=== PATIENT | male | born 1985 | race American Indian/Alaskan Native ===

== ENCOUNTER 2017-03-09 22:41 | Inpatient (IN) | payer BC ==
[2017-03-09 22:48] VITALS: BMI 27.1
[2017-03-09] MEDS ORDERED: Sodium Chloride 0.9% 1,000 ML IV STA (23:06)
--- NOTE | 2017-03-09 23:10 | ED PDOC ---
Arrival/HPI - General Historian: Patient EM Caveat: Uncooperative - General Chief Complaint: Dizziness/Lightheaded Time Seen by Provider: 03/09/17 22:50 - History of Present Illness Narrative History of Present Illness (Text): 03/09/17 23:07 31 y/o male, limited HPI can be obtained as the patient is anxious and walking around which he can not sit still, biba c/o feeling anxious and feeling something wrong with me x 1 day. Pt. was see in the [facility] less than 24 hours ago for palpitation and abdominal pain with the abdominal/pelvic CT with no acute findings, clear to be discharged home. Pt. stated that he feels anxious, can not stay still, concerning there is something going wrong with him , been drinking Golytely for colonoscopy and feeling he is dehydrated, very concerning about his health, feeling he is dehydrated and been drinking water continuously, no chest pain or shortness of breath, no abdominal or pelvic pain , no night sweat, no dizziness, no other medical or psychological complaints. (Serjio Miller) Past Medical History - Provider Review Nursing Documentation Reviewed: Yes - Past History Past History: No Previous - Infectious Disease Hx of Infectious Diseases: None - Tetanus Immunization Tetanus Immunization: Unknown - Pulmonary Hx Asthma: Yes - Endocrine/Metabolic Hx Endocrine Disorders: No - Integumentary Hx Dermatological Disorder: No - Gastrointestinal Hx Gastroesophageal Reflux: Yes - Psychiatric Hx Depression: No Hx Substance Use: No - Past Surgical History Past Surgical History: No Previous - Anesthesia Hx Anesthesia: No - Suicidal Assessment Feels Threatened In Home Enviroment: No Family/Social History - Physician Review Nursing Documentation Reviewed: Yes Family/Social History: Unknown Family HX Smoking Status: Never Smoked Hx Alcohol Use: Yes Hx Substance Use: No Hx Substance Use Treatment: No Allergies/Home Meds Allergies/Adverse Reactions: Allergies No Known Allergies Allergy (Verified 03/08/17 09:33) Home Medications: Home Meds Medication Instructions Recorded Confirmed Omeprazole 20 mg PO DAILY 03/08/17 03/08/17 Review of Systems - Review of Systems Systems not reviewed;Unavailable: Uncooperative Constitutional: absent: Fatigue, Fevers Eyes: absent: Vision Changes ENT: absent: Hearing Changes Respiratory: absent: Cough, Sputum Cardiovascular: absent: Chest Pain Gastrointestinal: absent: Abdominal Pain, Nausea, Vomiting Skin: absent: Rash, Pruritis, Skin Lesions, Laceration Neurological: absent: Headache, Dizziness Psychiatric: Anxiety. absent: Depression, Suicidal Ideation Physical Exam Vital Signs Reviewed: Yes Temperature: Afebrile Blood Pressure: Normal Pulse: Regular Respiratory Rate: Normal Appearance: Positive for: Well-Appearing, Non-Toxic, Unkept, Uncomfortable Pain Distress: None Mental Status: Positive for: Agitated Finger Stick Blood Glucose: 130 - Systems Exam Head: Present: Atraumatic, Normocephalic Pupils: Present: PERRL Extroacular Muscles: Present: EOMI Conjunctiva: Present: Normal Mouth: Present: Moist Mucous Membranes Neck: Present: Normal Range of Motion Respiratory/Chest: Present: Clear to Auscultation, Good Air Exchange. No: Respiratory Distress, Accessory Muscle Use Cardiovascular: Present: Regular Rate and Rhythm, Normal S1, S2. No: Murmurs Abdomen: Present: Normal Bowel Sounds. No: Tenderness, Distention, Peritoneal Signs Back: Present: Normal Inspection Upper Extremity: Present: Normal Inspection. No: Cyanosis, Edema Lower Extremity: Present: Normal Inspection. No: Edema Neurological: Present: GCS=15, Speech Normal, Motor Func Grossly Intact Skin: Present: Warm, Dry, Normal Color. No: Rashes Psychiatric: Present: Alert, Anxious Vital Signs Temp Pulse Resp BP Pulse Ox 03/10/17 02:50 64 18 128/68 100 03/10/17 02:00 63 18 135/75 100 03/10/17 00:31 97.9 F 84 18 140/82 100 Medical Decision Making - Critical Care Critical Care Minutes: 30 minutes Critical Care Time: Unstable - Lab Interpretations I have reviewed the lab results: Yes Interpretation: Abnormal lab values (Ph 7.136 with CO2 34 and LA 9.4 HCO3 12.1 ( Metabolic Acidosis with respiratory compensation), hyponatremia, hypomagensemia , hypochloremia) - RAD Interpretation Drop Wire Aligner: Radiologist - EKG Interpretation Interpreted by ED Physician: Yes Type: 12 lead EKG ED Course and Treatment: 03/10/17 02:48 CT Head Without Intravenous Contrast: Dictated and Authenticated by: Dolores Hollingsworth MD FINDINGS: Brain: No acute intracranial hemorrhage. No significant white matter disease. No edema. Ventricles: No significant ventriculomegaly. Bones: No acute displaced fracture. Sinuses: Unremarkable as visualized. No acute sinusitis. Mastoid air cells: Unremarkable as visualized. No mastoid effusion. IMPRESSION: No acute intracranial hemorrhage, or suspicious mass effect. (Peter Cody) 03/09/17 23:16 -labs/ua/uds -ekg/chest x-ray -Ativan 2mg IV -Observe and reassess 03/10/17 00:29 -Pt. has vomited water he has been drinking in the ER, noted that he had seizure in the ER with tonic clonic activity for approx. 1 minute, osmolarity/ oxygen/train operations manager/CT head ordered/aspiration and seizure precautions order. 03/10/17 00:44 -EKG: NSR @ 71 BPM, no ST elevation or depression, no T wave inversion. 03/10/17 01:03 -ABS show: Ph 7.136 with CO2 34 and LA 9.4 HCO3 12.1 (Metabolic Acidosis with respiratory compensation) -Hypertonic 3% normal saline at 100cc bolus once ordered after discussing with DR. Cody -Potassium Chloride IV 20meq ordered. -Pt. vomited in the ER and been coughing in the ER, risk for aspiration pneumonia with lactic acid 9.4 but no suitable for the IVF bolus due to the Na level, rocephine and azithromycin IV ordered. -Chest x-ray show no acute findings. 03/10/17 01:06 -CT head show: no acute findings. -Labs show hyponatremia and hypokalemia/hypomagnseumia which is likely the source for new onset of seizure -Urinalysis pending for specieman -Drug screen pending 03/10/17 02:47 -Dr. Cody spoke to Dr. Mcfarlane (ICU) and Dr. Anderson (admitting), discussed about the labs/radiology result as they will follow up the remaining labs and care for the patient, agreed on the admission. (Serjio Miller) - Critical Care Narrative Critical Care (Text): 03/10/17 02:54 hyponatremia/hypokalemia/acidosis/hypertonic IVF/rocephine and azithromycin IV/ train operations manager/seizure. (Serjio Miller) - Lab Interpretations Lab Results: 03/10/17 00:30 03/10/17 00:30 Lab Results 03/10/17 00:35: pCO2 34 L, pO2 85.0, HCO3 12.1 L, ABG pH 7.16 L*, ABG Total CO2 13.1 L, ABG O2 Saturation 97.1, ABG Base Excess -15.6 L, ABG Potassium 2.4 L*, Glucose 125 H, Lactate 9.4 H*, FiO2 100.0, Sodium 122.0 L, Chloride 87.0 L, Arterial Blood Potassium 2.4 L* 03/10/17 00:30: Salicylates < 1 L, Acetaminophen < 10.0 L 03/10/17 00:30: Serum Osmolality 250 L, Alcohol, Quantitative < 10 03/10/17 00:30: Sodium 118 L*, Potassium 3.0 L, Chloride 80 L, Carbon Dioxide 17 L, Anion Gap 24 H, BUN 4 L, Creatinine 0.7, Est GFR ( Amer) > 60, Est GFR (Non-Af Amer) > 60, Random Glucose 151 H, Calcium 8.8, Magnesium 1.1 L, Total Bilirubin 2.2 H, AST 29, ALT 17, Alkaline Phosphatase 75, Total Protein 8.4 H, Albumin 4.8, Globulin 3.6, Albumin/Globulin Ratio 1.3, Lipase 44 03/10/17 00:30: WBC 6.1, RBC 4.90, Hgb 14.6, Hct 41.4 L, MCV 84.5, MCH 29.8, MCHC 35.3, RDW 12.3, Plt Count 268, MPV 8.6, Gran % 70.1 H, Lymph % (Auto) 18.4 L, Dillon % (Auto) 10.9 H, Eos % (Auto) 0.3 L, Baso % (Auto) 0.3, Gran # 4.26, Lymph # 1.1 L, Dillon # 0.7 H, Eos # 0.0, Baso # 0.02 - RAD Interpretation Radiology Orders: 03/09/17 23:06 CHEST PORTABLE [RAD] Stat 03/10/17 00:27 HEAD W/O CONTRAST [CT] Stat FINDINGS: Brain: No acute intracranial hemorrhage. No significant white matter disease. No edema. Ventricles: No significant ventriculomegaly. Bones: No acute displaced fracture. Sinuses: Unremarkable as visualized. No acute sinusitis. Mastoid air cells: Unremarkable as visualized. No mastoid effusion. IMPRESSION: No acute intracranial hemorrhage, or suspicious mass effect. Thank you for allowing us to participate in the care of your patient. Dictated and Authenticated by: Dolores Hollingsworth MD 03/10/2017 1:57 AM Eastern Time ([place] & [place]) Chest x-ray: no active disease (Serjio Miller) - EKG Interpretation EKG Interpretation (Text): 03/10/17 00:44 NSR @ 71 BPM, no ST elevation or depression, no T wave inversion. (Serjio Miller) - Medication Orders Current Medication Orders: Enoxaparin Sodium (Lovenox) 40 mg SC DAILY PEPE PRN Reason: Protocol Last Admin: 03/10/17 15:20 Dose: 40 mg Dexmedetomidine HCl (Precedex 4 Mcg/Ml (100 Ml)) 400 mcg in 100 mls @ 4.536 mls /hr IV .Q22H3M PRN; Protocol; 0.2 MCG/KG/HR PRN Reason: Agitation Last Admin: 03/10/17 15:15 Dose: 0.2 mcg/kg/hr, 4.536 mls/hr Lorazepam (Ativan) 2 mg IVP Q4H PRN; Protocol PRN Reason: Seizure activity Last Admin: 03/10/17 04:55 Dose: 2 mg Re-Assess: Reassess Psych Meds Document 03/10/17 05:25 [facility] (Rec: 03/10/17 06:01 [id number] Reassess Psych Med Effective Morphine Sulfate (Morphine) 2 mg IVP Q4H PRN PRN Reason: Pain, severe (8-10) Ondansetron HCl (Zofran Inj) 4 mg IVP Q6H PRN PRN Reason: Nausea/Vomiting Pantoprazole Sodium (Protonix Inj) 40 mg IVP DAILY [facility] Last Admin: 03/10/17 15:20 Dose: 40 mg Discontinued Medications Ceftriaxone Sodium (Rocephin 1 Gram Ivpb) 1 gm in 100 mls @ 200 mls/hr IVPB STAT STA PRN Reason: Protocol Stop: 03/10/17 01:26 Last Admin: 03/10/17 02:56 Dose: 200 mls/hr Azithromycin (Zithromax 500mg In Ns) 500 mg in 250 mls @ 167 mls/hr IVPB STAT STA PRN Reason: Protocol Stop: 03/10/17 02:26 Last Admin: 03/10/17 03:59 Dose: 167 mls/hr Sodium Chloride (Hypertonic Saline 3%) 100 mls @ 200 mls/hr IV STAT STA Stop: 03/10/17 01:31 Last Admin: 03/10/17 01:26 Dose: 200 mls/hr Potassium Chloride (Potassium Chloride 20 Meq/100 Ml) 20 meq in 100 mls @ 50 mls/hr IVPB ONCE ONE Stop: 03/10/17 03:01 Last Admin: 03/10/17 04:00 Dose: 50 mls/hr Magnesium Sulfate 2 gm/ Sodium (Chloride) 104 mls @ 102 mls/hr IVPB ONCE ONE Stop: 03/10/17 04:00 Last Admin: 03/10/17 03:41 Dose: 102 mls/hr Vancomycin HCl (Vancomycin 1gm) 1 gm in 250 mls @ 167 mls/hr IVPB Q12H PEPE PRN Reason: Protocol Piperacillin Sod/Tazobactam Sod (Zosyn 3.375 In Ns 100ml) 100 mls @ 200 mls/hr IVPB Q6 PEPE PRN Reason: Protocol Stop: 03/10/17 12:29 Vancomycin HCl (Vancomycin 1gm) 1 gm in 250 mls @ 167 mls/hr IVPB STAT STA PRN Reason: Protocol Stop: 03/10/17 04:40 Last Admin: 03/10/17 04:58 Dose: 167 mls/hr Piperacillin Sod/Tazobactam Sod (Zosyn 3.375 In Ns 100ml) 100 mls @ 200 mls/hr IVPB STAT STA PRN Reason: Protocol Stop: 03/10/17 03:39 Sodium Chloride (Sodium Chloride 0.9%) 1,000 mls @ 125 mls/hr IV .Q8H PEPE Last Admin: 03/10/17 05:14 Dose: 125 mls/hr Potassium Chloride (Potassium Chloride 10 Meq/100 Ml) 10 meq in 100 mls @ 100 mls/hr IVPB Q2H PEPE Stop: 03/10/17 10:59 Last Admin: 03/10/17 15:22 Dose: Lorazepam (Ativan) 2 mg IM ONCE ONE PRN Reason: Protocol Stop: 03/09/17 23:15 Last Admin: 03/09/17 23:17 Dose: 2 mg Lorazepam (Ativan) 2 mg IVP ONCE PRN; Protocol PRN Reason: Seizure activity Last Admin: 03/10/17 01:55 Dose: 2 mg Metoprolol Tartrate (Lopressor) 5 mg IVP STAT STA Stop: 03/10/17 11:24 Last Admin: 03/10/17 15:22 Dose: Metoprolol Tartrate (Lopressor) Confirm Administered Dose 5 mg IVP .STK-MED ONE Stop: 03/10/17 11:26 Last Admin: 03/10/17 11:30 Dose: 5 mg Ondansetron HCl (Zofran Inj) Confirm Administered Dose 4 mg .ROUTE .STK-MED ONE Stop: 03/10/17 02:49 Last Admin: 03/10/17 02:56 Dose: 4 mg - PA / 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 / has examined the patient and agrees with the treatment plan. Disposition/Present on Arrival - Present on Arrival Any Indicators Present on Arrival: No History of DVT/PE: No History of Uncontrolled Diabetes: No Urinary Catheter: No History of Decub. Ulcer: No History Surgical Site Infection Following: None - Disposition Have Diagnosis and Disposition been Completed?: Yes Disposition Time: 23:18 Patient Plan: Admission, ICU - Disposition Diagnosis: New onset seizure, Acute hyponatremia, Acute hyperkalemia, Hypomagnesemia, Metabolic acidemia Disposition: HOSPITALIZED Patient Problems: Current Active Problems Problem Status Onset Acute hyperkalemia Acute Acute hyponatremia Acute Hypomagnesemia Acute New onset seizure Acute Condition: GUARDED
[2017-03-10 00:52] LABS: ARTERIAL BLOOD GAS HCO3 12.1 mmol/L (21-28); ARTERIAL BLOOD GAS O2 SAT 97.1 % (95-98); ARTERIAL BLOOD GAS PCO2 34 mm/Hg (35-45); ARTERIAL BLOOD GAS TCO2 13.1 mmol.L (22-28)
[2017-03-10 00:53] LABS: ARTERIAL BLOOD GAS PH 7.16 (7.35-7.45)
[2017-03-10 01:11] LABS: ALB/GLOB RATIO 1.3 (1.1-1.8); ALBUMIN 4.8 g/dL (3.0-4.8); ALT/SGPT 17 U/L (7-56); AST/SGOT 29 U/L (15-59); BLOOD UREA NITROGEN 4 mg/dL (7-21); CALCIUM 8.8 mg/dL (8.4-10.5); GFR AFRICAN-AMERICAN > 60; GFR NON-AFRICAN AMERICAN > 60; LIPASE 44 U/L (23-300); MAGNESIUM 1.1 mg/dL (1.7-2.2); SALICYLATE < 1 mg/dL (2.0-20.0)
[2017-03-10 01:15] LABS: BASO # 0.02 K/mm3 (0.0-2.0); BASO % 0.3 % (0.0-3.0); EOS % 0.3 % (1.5-5.0); GRAN # 4.26 (1.4-6.5); GRAN % 70.1 % (50.0-68.0); HEMOGLOBIN 14.6 gm/dL (14.0-18.0); LYMPH # 1.1 (1.2-3.4); LYMPH % 18.4 % (22.0-35.0); MEAN CELL VOLUME 84.5 fL (80.0-105.0); MEAN CORPUSCULAR HEMOGLOBIN 29.8 pg (25.0-35.0); MEAN CORPUSCULAR HGB CONC 35.3 g/dl (31.0-37.0); MEAN PLATELET VOLUME 8.6 fl (7.0-11.0); MONO # 0.7 (0.1-0.6); MONO % 10.9 % (1.0-6.0); PLATELET COUNT 268 10^3/uL (120.0-450.0); RED CELL DISTRIBUTION WIDTH 12.3 % (11.5-14.5); WHITE BLOOD COUNT 6.1 10^3/ul (4.5-11.0)
[2017-03-10] MEDS: Sodium Chloride 3% 100 ML IV STA ×2 (01:19→01:26)
[2017-03-10 01:22] LABS: ACETAMINOPHEN < 10.0 ug/ml (10.0-20.0)
[2017-03-10 01:41] LABS: OSMOLALITY,SERUM 250 mosm/kg (271-296)
[2017-03-10] MEDS: cefTRIAXone 1 gm 1 GM/100 ML BAG IVPB STA ×2 (02:15→02:56)
--- NOTE | 2017-03-10 02:42 | CP.PCM.CON ---
History of Present Illness - History of Present Illness History of Present Illness: The patient is a 31 year old AAM with a reported history of chronic abdominal pain and anxiety who presented to the [facility] ED 2 days ago for worsening diffuse abdominal pain, palpitations and restlessness. Of note, due to the patient's altered mentation, details of the history were obtained solely from ED notes. A CT-A/P was done and found to be normal and therefore, the patient was discharged home from [facility] ED 2 days ago. Of note, he had a previously scheduled appointment for an outpatient colonoscopy to be done today , as part of work-up for his chronic abdominal pain. However, because his symptoms persisted after returning home from the [facility] ED, he decided to present [place] [facility] [place]. He also reportedly has been feeling very dehydrated over the past 24hours and therefore drank large volumes of water ( per ED report). While in [place] [facility] [place] last [place], he was noted to have a brief tonic-clonic seizure which resolved with IV Ativan given by the ED. However, since the seizure, he has become markedly altered, to the extent that he is no longer able to follow any commands. Also, ED labs showed numerous abnormalities including, an elevated lactic acid (9.8), hyponatremia (Pq=020) and metabolic acidosis (serum bicarb=17). Consequently, he was given a 100cc IV Bolus of 3% saline by the ED physician around 12:45am this morning. Review of Systems - Review of Systems All systems: reviewed and no additional remarkable complaints except (Unable to obtain ROS due to patient's AMS; Also, no family or friends of patient available at the time to provide any ROS.) Past Patient History - Infectious Disease Hx of Infectious Diseases: None - Tetanus Immunizations Tetanus Immunization: Unknown - Past Social History Smoking Status: Never Smoked - PULMONARY Hx Asthma: Yes - ENDOCRINE/METABOLIC Hx Endocrine Disorders: No - INTEGUMENTARY Hx Dermatological Problems: No - GASTROINTESTINAL Hx Gastroesophageal Reflux: Yes - PSYCHIATRIC Hx Depression: No Hx Substance Use: No - SURGICAL HISTORY Hx Surgeries: No - ANESTHESIA Hx Anesthesia: No Meds Allergies/Adverse Reactions: Allergies Allergy/AdvReac Type Severity Reaction Status Date / Time No Known Allergies Allergy Verified 03/08/17 09:33 - Medications Medications: Current Medications Potassium Chloride (Potassium Chloride 20 Meq/100 Ml) 20 meq in 100 mls @ 50 mls/hr IVPB ONCE ONE Stop: 03/10/17 03:01 Last Admin: 03/10/17 01:27 Dose: 50 mls/hr Physical Exam - Constitutional Additional comments: A&Ox1 (name only); Intermittently very agitated - Head Exam Head Exam: ATRAUMATIC, NORMAL INSPECTION, NORMOCEPHALIC - Eye Exam Eye Exam: PERRL - ENT Exam ENT Exam: Mucous Membranes Dry - Neck Exam Neck exam: Positive for: Full Rom Additional comments: No signs of meningitis - Respiratory Exam Respiratory Exam: Clear to Auscultation Bilateral, NORMAL BREATHING PATTERN - Cardiovascular Exam Cardiovascular Exam: REGULAR RHYTHM - GI/Abdominal Exam GI & Abdominal Exam: Normal Bowel Sounds, Soft. absent: Tenderness - Rectal Exam Rectal Exam: Deferred - Extremities Exam Extremities exam: Positive for: normal inspection - Neurological Exam Additional comments: Unable to assess full neuro exam due patient's markedly altered mentation; However, gross movement of all 4 extremities noted Results - Vital Signs Recent Vital Signs: Last Vital Signs Temp 97.9 F 03/10/17 00:31 Pulse 63 03/10/17 02:00 Resp 18 03/10/17 02:00 BP 135/75 03/10/17 02:00 Pulse Ox 100 03/10/17 02:00 - Labs Result Diagrams: 03/10/17 07:05 03/10/17 07:05 - Imaging and Cardiology CT scan - head Status: Report reviewed by me Assessment & Plan - Assessment and Plan (Free Text) Plan: A/P: The patient is a 31 year old AAM with a reported history of chronic abdominal pain and anxiety who is now being admitted to the ICU for symptomatic hyponatremia, altered mental status, tonic-clonic seizure and metabolic acidosis. 1. Symptomatic Hyponatremia: -ddx: psychogenic polydypsia vs Ecstasy Intoxication vs Thyroid dysfunction -given urine osmo of 46 and reported history of excessive water intake, psychogenic polydypsia remains high on ddx -will check urine lytes, TFT's and urine toxicology -nephrology consult placed -pt received 100cc IV Bolus of 3% saline in ED around 12:45am -will recheck serum sodium before determined next choice of IVF's -monitor serial BMP's Q4hrs -monitor strict I/O's -check a UA 2. Altered Mental Status: -ddx: Post-ictal vs hyponatremia vs illicit drug intoxication vs infection -CT-head negative for acute disease -neurology consult placed -neuro checks Q4hrs -keep HOB>30 degrees -fall and seizure precautions -soft restrains as needed for agitation -PRN IV Ativan for seizure -seizure may be cause of metabolic acidosis -check CPK level and urine drug screen -check urine lytes -check blood and urine cultures and procalcitonin level -one time dose of IV Zosyn and Vanco only (since pt is afebrile with normal WBC) -if patient becomes febrile or procalcitonin is elevated then defer to primary team to consult ID -strict NPO and swallow evaluation in AM 3. Tonic-Clonic Seizure (new onset): -CT-head negative for acute disease -neurology consult placed -neuro checks Q4hrs -keep HOB>30 degrees -fall and seizure precautions -soft restrains as needed for agitation -PRN IV Ativan for seizure -seizure may be cause of metabolic acidosis -check CPK level and urine drug screen 4. Metabolic Acidosis (with increased anion gap): -ddx: seizure vs sepsis -check CPK level -IVF's -check procalcitonin and repeat lactic acid level -one time dose of IV Zosyn and Vanco only (since pt is afebrile with normal WBC) 5. Hypomagnesemia: -possibly due to alcohol use -defer to primary team to obtain more detailed social history in AM from patient 's family and/or friends -replaced with IV Magnesium Sulfate and recheck with AM labs 6. Hypokalemia: -likely due to low serum magnesium -replace with IV KCL -recheck with AM labs -no EKG findings DVT PPx: SC Lovenox and SCD's GI PPx: Protonix
[2017-03-10] MEDS: Azithromycin 500MG/NS 250ml 500 MG/250 ML BAG IVPB STA ×2 (02:43→03:59)
[2017-03-10] MEDS ORDERED: Morphine 2 mg/ml ISec IVP PRN (02:50)
[2017-03-10] MEDS ORDERED: Magnesium Sulfate 2 GM in Sodium Chloride 0.9% 100 ML IVPB ONE (02:59)
[2017-03-10] MEDS ORDERED: Vancomycin 1gm in NS 250ml 1 GM/250 ML BAG IVPB STA (03:11)
[2017-03-10] MEDS ORDERED: Piperacillin/Tazobact 3.375 gm 100 ML IVPB STA (03:11)
[2017-03-10] MEDS ORDERED: Vancomycin 1gm in NS 250ml 1 GM/250 ML BAG IVPB SCH (03:15)
[2017-03-10] MEDS ORDERED: Sodium Chloride 0.9% 1,000 ML IV SCH (05:15)
[2017-03-10 05:33] LABS: OSMOLALITY,URINE 46 mosm/kg (50-645)
[2017-03-10 05:40] LABS: BARBITURATES, UR NEGATIVE (NEGATIVE); BENZODIAZEPINES, UR NEGATIVE (NEGATIVE); OPIATES, UR NEGATIVE (NEGATIVE); PHENCYCLIDINE, UR NEGATIVE (NEGATIVE)
[2017-03-10] MEDS ORDERED: Piperacillin/Tazobact 3.375 gm 100 ML IVPB SCH (06:00)
[2017-03-10 07:28] LABS: BASO # 0.01 K/mm3 (0.0-2.0); BASO % 0.1 % (0.0-3.0); EOS % 0.1 % (1.5-5.0); GRAN % 89.3 % (50.0-68.0); HEMOGLOBIN 14.8 gm/dL (14.0-18.0); LYMPH # 0.7 (1.2-3.4); LYMPH % 4.6 % (22.0-35.0); MEAN CELL VOLUME 81.5 fL (80.0-105.0); MEAN CORPUSCULAR HEMOGLOBIN 29.5 pg (25.0-35.0); MEAN CORPUSCULAR HGB CONC 36.2 g/dl (31.0-37.0); MEAN PLATELET VOLUME 8.7 fl (7.0-11.0); MONO # 0.9 (0.1-0.6); MONO % 5.9 % (1.0-6.0); PLATELET COUNT 244 10^3/uL (120.0-450.0); RBC 5.02 10^6/uL (3.5-6.1); RED CELL DISTRIBUTION WIDTH 12.2 % (11.5-14.5); WHITE BLOOD COUNT 14.6 10^3/ul (4.5-11.0)
--- NOTE | 2017-03-10 07:32 | CT ---
PROCEDURE: CT HEAD WITHOUT CONTRAST. HISTORY: seizure? COMPARISON: 11/25/2015. TECHNIQUE: Axial computed tomography images were obtained through the head/brain without intravenous contrast. Radiation dose: Total exam DLP = 757.44 mGy-cm. This CT exam was performed using one or more of the following dose reduction techniques: Automated exposure control, adjustment of the mA and/or kV according to patient size, and/or use of iterative reconstruction technique. FINDINGS: HEMORRHAGE: No intracranial hemorrhage. BRAIN: Casarez-white matter differentiation is preserved. There is no mass, mass effect or abnormal extra-axial fluid collection. There is no territorial infarction. VENTRICLES: The ventricles are normal in size, shape and configuration. CALVARIUM: The skull base and calvarium are normal. PARANASAL SINUSES: Predominantly clear. MASTOID AIR CELLS: Predominantly clear. OTHER FINDINGS: None. IMPRESSION: No acute intracranial abnormality. A preliminary report was provided by [facility].
[2017-03-10 07:39] LABS: ALB/GLOB RATIO 1.2 (1.1-1.8); ALBUMIN 4.1 g/dL (3.0-4.8); ALT/SGPT 26 U/L (7-56); AST/SGOT 60 U/L (15-59); BLOOD UREA NITROGEN 3 mg/dL (7-21); CALCIUM 8.7 mg/dL (8.4-10.5); GFR AFRICAN-AMERICAN > 60; GFR NON-AFRICAN AMERICAN > 60; MAGNESIUM 3.5 mg/dL (1.7-2.2)
--- NOTE | 2017-03-10 07:39 | RAD ---
HISTORY: medical clearance COMPARISON: 08/31/2012 FINDINGS: LUNGS: No active pulmonary disease. PLEURA: No significant pleural effusion identified, no pneumothorax apparent. CARDIOVASCULAR: Normal. OSSEOUS STRUCTURES: No significant abnormalities. VISUALIZED UPPER ABDOMEN: Normal. OTHER FINDINGS: None. IMPRESSION: No active disease.
[2017-03-10 07:54] LABS: CK MB% 0.7 % (2.5-3.0); CK-MB 10.9 ng/mL (0.0-3.6)
[2017-03-10 08:05] LABS: VENOUS BLOOD GAS BASE EXCESS 1.6 mmol/L (0.0-2.0); VENOUS BLOOD GAS PO2 33 mm/Hg (30-55)
[2017-03-10 08:22] LABS: MEAN CELL VOLUME 81.5 fL (80.0-105.0); MEAN CORPUSCULAR HEMOGLOBIN 30.5 pg (25.0-35.0); MEAN CORPUSCULAR HGB CONC 37.4 g/dl (31.0-37.0); MEAN PLATELET VOLUME 8.9 fl (7.0-11.0); RBC 5.25 10^6/uL (3.5-6.1); RED CELL DISTRIBUTION WIDTH 12.2 % (11.5-14.5); WHITE BLOOD COUNT 16.4 10^3/ul (4.5-11.0)
[2017-03-10 08:30] LABS: BLOOD UREA NITROGEN 3 mg/dL (7-21); CALCIUM 9.2 mg/dL (8.4-10.5); GFR AFRICAN-AMERICAN > 60; GFR NON-AFRICAN AMERICAN > 60
[2017-03-10 08:31] LABS: SALICYLATE < 1 mg/dL (2.0-20.0)
[2017-03-10 08:40] LABS: ACETAMINOPHEN < 10.0 ug/ml (10.0-20.0)
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
--- NOTE | 2017-03-10 09:53 | CARD ---
APPROVED REPORT EKG Measurement Heart [id number] <Conclusion> Normal sinus rhythm Nonspecific ST abnormality Abnormal ECG
[2017-03-10] MEDS ORDERED: Metoprolol 1 mg/ml Inj IVP STA (11:23)
[2017-03-10] MEDS ORDERED: Metoprolol 1 mg/ml Inj IVP ONE (11:25)
[2017-03-10 12:13] LABS: PH,URINE 6.5 (4.7-8.0); URINE BILIRUBIN NEGATIVE (NEGATIVE); URINE BLOOD TRACE-INTACT (NEGATIVE); URINE GLUCOSE (UA) NEGATIVE (NEGATIVE); URINE LEUKOCYTE ESTERASE SMALL Leu/uL (NEGATIVE); URINE NITRATE NEGATIVE (NEGATIVE); URINE PROTEIN NEGATIVE mg/dL (<30 mg/dL); URINE UROBILINOGEN 0.2 E.U./dL (<1 E.U./dL)
[2017-03-10 12:14] LABS: URINE APPEARANCE CLEAR (CLEAR); URINE COLOR YELLOW (YELLOW)
[2017-03-10 12:18] LABS: URINE RBC 0 - 2 /hpf (0-2)
[2017-03-10 12:39] LABS: BARBITURATES, UR NEGATIVE (NEGATIVE); BENZODIAZEPINES, UR NEGATIVE (NEGATIVE); OPIATES, UR NEGATIVE (NEGATIVE); PHENCYCLIDINE, UR NEGATIVE (NEGATIVE)
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
[2017-03-10 14:25] LABS: BLOOD UREA NITROGEN 3 mg/dL (7-21); GFR AFRICAN-AMERICAN > 60; GFR NON-AFRICAN AMERICAN > 60
[2017-03-10] MEDS ORDERED: Dexmedetomidine HCl 4mcg/ml 400 MCG/100 ML BOTTLE IV PRN ×2 (14:25→14:26)
[2017-03-10] MEDS: Enoxaparin 40 mg Syringe SC SCH (15:20)
[2017-03-10] MEDS ORDERED: Gadodiamide 287 MG/ML VIAL (15ML) IV ONE (16:16)
--- NOTE | 2017-03-10 17:18 | CP.PCM.CON ---
History of Present Illness - History of Present Illness History of Present Illness: NEURO CONSULT NOTE: 03/10/17 CHIEF COMPLAINT: SEIZURE HPI: The patient is a 31 year old AAM with a reported history of chronic abdominal pain and anxiety who presented to the [facility] ED 2 days ago for worsening diffuse abdominal pain, palpitations and restlessness. Of note, due to the patient's altered mentation, details of the history were obtained solely from ED notes. A CT-A/P was done and found to be normal and therefore, the patient was discharged home from [facility] ED 2 days ago. Of note, he had a previously scheduled appointment for an outpatient colonoscopy to be done today , as part of work-up for his chronic abdominal pain. However, because his symptoms persisted after returning home from the [facility] ED, he decided to present to the [facility] ED last night. He also reportedly has been feeling very dehydrated over the past 24hours and therefore drank large volumes of water. While in the [facility] ED last night, he was noted to have a brief tonic-clonic seizure which resolved with IV Ativan given by the ED. However, since the seizure, he has become markedly altered, to the extent that he is no longer able to follow any commands. Also, ED labs showed numerous abnormalities including, an elevated lactic acid (9.8), hyponatremia (Of=126) and metabolic acidosis (serum bicarb=17). CURRENTLY CT HEAD SHOWED NO ACUTE INTRACRANIAL ABNORMALITY. PT WITHRAWS TO NOXIOUS STIMULUS, MOVES ALL EXTREMITIES EQUALLY, GETS AGITATED IN BETWEEN. NO FURTHER SEIZURE LIKE ACTIVITY. ROS: 14 POINT REVIEW OF SYMPTOMS IS NEGATIVE PER HPI. ALLERGIES: NONE SOCIAL HISTORY: NO ILLICIT DRUG USE, SMOKING, BUT OCCASIONAL ETOH USE. FAMILY: NON CONTRIBUTORY. MEDICATIONS: REVIEWED BY NURSE'S RECONCILIATION SHEET. PAST MEDICAL HISTORY: ANXIETY PHYSICAL EXAM: VITAL SIGNS: REVIEWED BY THE CHART GENERAL EXAM: PATIENT SEEN IN BED, IN NO ACUTE DISTRESS MORBIDLY OBESE. HEENT: PERRLA, EOMI, NECK SUPPLE, NO JVD, NO ADENOPATHY CVS: S1, S2, RRR, NO MURMURS NOTED LUNGS: CLEAR TO AUSCULTATION, NO ADVENTITIOUS SOUNDS ABDOMEN: SOFT AND NONTENDER EXTREMITIES: NO CLUBBING OR CYANOSIS. PP 2+ B/L NEURO: PT IS DROWSY, SPEECH HYPOPHONIC, CN II-XII INTACT, MOTOR EXAM: NORMAL TONE, NORMAL BULK OF MUSCLE, MOVES ALL EXTREMITIES EQUALLY, NO PRONATOR DRIFT SEEN. SENSORY EXAM: LIGHT TOUCH, PIN PRICK, PROPRIOCEPTION ,VIBRATION INTACT B/L. DEEP TENDON REFLEXES: 2+ THROUGHOUT COORDINATION: DEFERRED FOR NOW GAIT: DEFERRED FOR NOW. LABS: REVIEWED BY THE CHART. ASSESSMENT AND PLAN: The patient is a 31 year old AAM with a reported history of chronic abdominal pain and anxiety who presented to the [facility] ED 2 days ago for worsening diffuse abdominal pain, palpitations and restlessness. Of note, due to the patient's altered mentation, details of the history were obtained solely from ED notes. A CT-A/P was done and found to be normal and therefore, the patient was discharged home from [facility] ED 2 days ago. Of note, he had a previously scheduled appointment for an outpatient colonoscopy to be done today , as part of work-up for his chronic abdominal pain. However, because his symptoms persisted after returning home from the [facility] ED, he decided to present to the [facility] ED last night. He also reportedly has been feeling very dehydrated over the past 24hours and therefore drank large volumes of water. While in the [facility] ED last night, he was noted to have a brief tonic-clonic seizure which resolved with IV Ativan given by the ED. However, since the seizure, he has become markedly altered, to the extent that he is no longer able to follow any commands. Also, ED labs showed numerous abnormalities including, an elevated lactic acid (9.8), hyponatremia (Xn=876) and metabolic acidosis (serum bicarb=17). SEIZURES ARE PROVOKED BY HYPONATREMIA. DROWSINESS IS SECONDARY FROM METABOLIC DERANGEMENT AND RAPID CORRECTION OF HYPONATREMIA PLAN: 1.NO AEDS NEEDED FOR NOW 2. MRI BRAIN W/ CONTRAST TO ASSESS FOR INTRACRANIAL PATHOLOGY. 3. MONITOR ELECTROLYTES AND CORRECT ACCORDINGLY. 4. PSYCH EVAL ONCE MORE AWAKE FOR HX OF ANXIETY. THANK YOU PLEASE RECONSULT NECESSARY. Janny FORD MD Past Patient History - Infectious Disease Hx of Infectious Diseases: None - Tetanus Immunizations Tetanus Immunization: Unknown - Past Social History Smoking Status: Never Smoked - CARDIAC Hx Cardiac Disorders: No - PULMONARY Hx Asthma: Yes - NEUROLOGICAL Hx Neurological Disorder: No - HEENT Hx HEENT Problems: No - RENAL Hx Chronic Kidney Disease: No - ENDOCRINE/METABOLIC Hx Endocrine Disorders: No - HEMATOLOGICAL/ONCOLOGICAL Hx Blood Disorders: No - INTEGUMENTARY Hx Dermatological Problems: No - MUSCULOSKELETAL/RHEUMATOLOGICAL Hx Musculoskeletal Disorders: No - GASTROINTESTINAL Hx Gastroesophageal Reflux: Yes - GENITOURINARY/GYNECOLOGICAL Hx Genitourinary Disorders: No - PSYCHIATRIC Hx Depression: No Hx Substance Use: No - SURGICAL HISTORY Hx Surgeries: No - ANESTHESIA Hx Anesthesia: No Meds Allergies/Adverse Reactions: Allergies Allergy/AdvReac Type Severity Reaction Status Date / Time No Known Allergies Allergy Verified 03/08/17 09:33 - Medications Medications: Current Medications Enoxaparin Sodium (Lovenox) 40 mg SC DAILY [facility] PRN Reason: Protocol Last Admin: 03/10/17 15:20 Dose: 40 mg Dexmedetomidine HCl (Precedex 4 Mcg/Ml (100 Ml)) 400 mcg in 100 mls @ 4.536 mls /hr IV .Q22H3M PRN; Protocol; 0.2 MCG/KG/HR PRN Reason: Agitation Last Admin: 03/10/17 15:15 Dose: 0.2 mcg/kg/hr, 4.536 mls/hr Dexmedetomidine HCl (Precedex 4 Mcg/Ml (100 Ml)) 400 mcg in 100 mls @ 4.536 mls /hr IV .Q22H3M PRN; Protocol; 0.2 MCG/KG/HR PRN Reason: Agitation Lorazepam (Ativan) 2 mg IVP Q4H PRN; Protocol PRN Reason: Seizure activity Last Admin: 03/10/17 04:55 Dose: 2 mg Morphine Sulfate (Morphine) 2 mg IVP Q4H PRN PRN Reason: Pain, severe (8-10) Ondansetron HCl (Zofran Inj) 4 mg IVP Q6H PRN PRN Reason: Nausea/Vomiting Pantoprazole Sodium (Protonix Inj) 40 mg IVP DAILY [facility] Last Admin: 03/10/17 15:20 Dose: 40 mg Results - Vital Signs Recent Vital Signs: Last Vital Signs Temp 97.6 F 03/10/17 05:27 Pulse 180 H 03/10/17 11:30 Resp 20 03/10/17 06:00 BP 140/70 03/10/17 11:30 Pulse Ox 100 03/10/17 06:00 - Labs Result Diagrams: 03/10/17 09:00 03/10/17 14:00 Labs: Laboratory Results - last 24 hr 03/10/17 03/10/17 03/10/17 04:30 07:05 07:05 WBC RBC Hgb Hct MCV MCH MCHC RDW Plt Count MPV Gran % Lymph % (Auto) Sanders % (Auto) Eos % (Auto) Baso % (Auto) Gran # Lymph # Sanders # Eos # Baso # pO2 VBG pH VBG pCO2 VBG HCO3 VBG Total CO2 VBG O2 Sat (Calc) VBG Base Excess VBG Potassium Glucose Lactate FiO2 Sodium 132 Potassium 3.4 L Chloride 95 L Carbon Dioxide 27 Anion Gap 13 BUN 3 L Creatinine 0.6 Est GFR ( Amer) > 60 Est GFR (Non-Af Amer) > 60 Random Glucose 96 Lactic Acid Calcium 8.7 Phosphorus 3.7 Magnesium 3.5 H Total Bilirubin 2.9 H AST 60 H ALT 26 Alkaline Phosphatase 75 Ammonia Total Creatine Kinase 1588 H CK-MB (CK-2) 10.9 H CK-MB (CK-2) % 0.7 L Troponin I Total Protein 7.5 Albumin 4.1 Globulin 3.3 Albumin/Globulin Ratio 1.2 Procalcitonin 0.05 L TSH 3rd Generation Venous Blood Potassium Urine Color Urine Appearance Urine pH Ur Specific [place] Urine Protein Urine Glucose (UA) Urine Ketones Urine Blood Urine Nitrate Urine Bilirubin Urine Urobilinogen Ur Leukocyte Esterase Urine RBC Urine WBC Urine Osmolality 46 L Ur Random Creatinine Ur Random Sodium Ur Random Potassium Salicylates Urine Opiates Screen Negative Urine Methadone Screen Negative Acetaminophen Ur Barbiturates Screen Negative Ur Phencyclidine Scrn Negative Ur Amphetamines Screen Negative U Benzodiazepines Scrn Negative U Oth Cocaine Metabols Negative U Cannabinoids Screen Negative HIV 1&2 Antibody Screen 03/10/17 03/10/17 03/10/17 07:05 07:50 07:50 WBC 14.6 H D RBC 5.02 Hgb 14.8 Hct 40.9 L MCV 81.5 MCH 29.5 MCHC 36.2 RDW 12.2 Plt Count 244 MPV 8.7 Gran % 89.3 H Lymph % (Auto) 4.6 L Sanders % (Auto) 5.9 Eos % (Auto) 0.1 L Baso % (Auto) 0.1 Gran # 13.00 H Lymph # 0.7 L Sanders # 0.9 H Eos # 0.0 Baso # 0.01 pO2 VBG pH VBG pCO2 VBG HCO3 VBG Total CO2 VBG O2 Sat (Calc) VBG Base Excess VBG Potassium Glucose Lactate FiO2 Sodium Potassium Chloride Carbon Dioxide Anion Gap BUN Creatinine Est GFR ( Amer) Est GFR (Non-Af Amer) Random Glucose Lactic Acid 1.9 Calcium Phosphorus Magnesium Total Bilirubin AST ALT Alkaline Phosphatase Ammonia < 9 L Total Creatine Kinase CK-MB (CK-2) CK-MB (CK-2) % Troponin I Total Protein Albumin Globulin Albumin/Globulin Ratio Procalcitonin TSH 3rd Generation Venous Blood Potassium Urine Color Urine Appearance Urine pH Ur Specific [place] Urine Protein Urine Glucose (UA) Urine Ketones Urine Blood Urine Nitrate Urine Bilirubin Urine Urobilinogen Ur Leukocyte Esterase Urine RBC Urine WBC Urine Osmolality Ur Random Creatinine Ur Random Sodium Ur Random Potassium Salicylates Urine Opiates Screen Urine Methadone Screen Acetaminophen Ur Barbiturates Screen Ur Phencyclidine Scrn Ur Amphetamines Screen U Benzodiazepines Scrn U Oth Cocaine Metabols U Cannabinoids Screen HIV 1&2 Antibody Screen 03/10/17 03/10/17 03/10/17 07:50 07:50 07:50 WBC RBC Hgb Hct MCV MCH MCHC RDW Plt Count MPV Gran % Lymph % (Auto) Sanders % (Auto) Eos % (Auto) Baso % (Auto) Gran # Lymph # Sanders # Eos # Baso # pO2 33 VBG pH 7.30 L VBG pCO2 61.0 H VBG HCO3 30.0 H VBG Total CO2 31.9 H VBG O2 Sat (Calc) 63.4 VBG Base Excess 1.6 VBG Potassium 3.8 Glucose 99 Lactate 2.1 FiO2 21.0 Sodium 133.0 Potassium Chloride 94.0 L Carbon Dioxide Anion Gap BUN Creatinine Est GFR ( Amer) Est GFR (Non-Af Amer) Random Glucose Lactic Acid Calcium Phosphorus Magnesium Total Bilirubin AST ALT Alkaline Phosphatase Ammonia Total Creatine Kinase CK-MB (CK-2) CK-MB (CK-2) % Troponin I Total Protein Albumin Globulin Albumin/Globulin Ratio Procalcitonin TSH 3rd Generation 0.45 L Venous Blood Potassium 3.8 Urine Color Urine Appearance Urine pH Ur Specific [place] Urine Protein Urine Glucose (UA) Urine Ketones Urine Blood Urine Nitrate Urine Bilirubin Urine Urobilinogen Ur Leukocyte Esterase Urine RBC Urine WBC Urine Osmolality Ur Random Creatinine Ur Random Sodium Ur Random Potassium Salicylates Urine Opiates Screen Urine Methadone Screen Acetaminophen Ur Barbiturates Screen Ur Phencyclidine Scrn Ur Amphetamines Screen U Benzodiazepines Scrn U Oth Cocaine Metabols U Cannabinoids Screen HIV 1&2 Antibody Screen Negative 03/10/17 03/10/17 03/10/17 09:00 09:00 09:00 WBC 16.4 H RBC 5.25 Hgb 16.0 Hct 42.8 MCV 81.5 MCH 30.5 MCHC 37.4 H RDW 12.2 Plt Count 255 MPV 8.9 Gran % Lymph % (Auto) Sanders % (Auto) Eos % (Auto) Baso % (Auto) Gran # Lymph # Sanders # Eos # Baso # pO2 VBG pH VBG pCO2 VBG HCO3 VBG Total CO2 VBG O2 Sat (Calc) VBG Base Excess VBG Potassium Glucose Lactate FiO2 Sodium 133 Potassium 3.6 Chloride 95 Carbon Dioxide 28 Anion Gap 14 BUN 3 L Creatinine 0.7 Est GFR ( Amer) > 60 Est GFR (Non-Af Amer) > 60 Random Glucose 94 Lactic Acid Calcium 9.2 Phosphorus Magnesium Total Bilirubin AST ALT Alkaline Phosphatase Ammonia Total Creatine Kinase CK-MB (CK-2) CK-MB (CK-2) % Troponin I Total Protein Albumin Globulin Albumin/Globulin Ratio Procalcitonin TSH 3rd Generation Venous Blood Potassium Urine Color Urine Appearance Urine pH Ur Specific [place] Urine Protein Urine Glucose (UA) Urine Ketones Urine Blood Urine Nitrate Urine Bilirubin Urine Urobilinogen Ur Leukocyte Esterase Urine RBC Urine WBC Urine Osmolality Ur Random Creatinine Ur Random Sodium Ur Random Potassium Salicylates < 1 L Urine Opiates Screen Urine Methadone Screen Acetaminophen < 10.0 L Ur Barbiturates Screen Ur Phencyclidine Scrn Ur Amphetamines Screen U Benzodiazepines Scrn U Oth Cocaine Metabols U Cannabinoids Screen HIV 1&2 Antibody Screen 03/10/17 03/10/17 03/10/17 09:00 12:00 12:00 WBC RBC Hgb Hct MCV MCH MCHC RDW Plt Count MPV Gran % Lymph % (Auto) Sanders % (Auto) Eos % (Auto) Baso % (Auto) Gran # Lymph # Sanders # Eos # Baso # pO2 VBG pH VBG pCO2 VBG HCO3 VBG Total CO2 VBG O2 Sat (Calc) VBG Base Excess VBG Potassium Glucose Lactate FiO2 Sodium Potassium Chloride Carbon Dioxide Anion Gap BUN Creatinine Est GFR ( Amer) Est GFR (Non-Af Amer) Random Glucose Lactic Acid Calcium Phosphorus Magnesium Total Bilirubin AST ALT Alkaline Phosphatase Ammonia Total Creatine Kinase CK-MB (CK-2) CK-MB (CK-2) % Troponin I < 0.01 Total Protein Albumin Globulin Albumin/Globulin Ratio Procalcitonin TSH 3rd Generation Venous Blood Potassium Urine Color Urine Appearance Urine pH Ur Specific [place] Urine Protein Urine Glucose (UA) Urine Ketones Urine Blood Urine Nitrate Urine Bilirubin Urine Urobilinogen Ur Leukocyte Esterase Urine RBC Urine WBC Urine Osmolality 184 Ur Random Creatinine Ur Random Sodium 48 Ur Random Potassium 9.1 Salicylates Urine Opiates Screen Negative Urine Methadone Screen Negative Acetaminophen Ur Barbiturates Screen Negative Ur Phencyclidine Scrn Negative Ur Amphetamines Screen Negative U Benzodiazepines Scrn Negative U Oth Cocaine Metabols Negative U Cannabinoids Screen Negative HIV 1&2 Antibody Screen 03/10/17 03/10/17 03/10/17 12:00 12:00 14:00 WBC RBC Hgb Hct MCV MCH MCHC RDW Plt Count MPV Gran % Lymph % (Auto) Sanders % (Auto) Eos % (Auto) Baso % (Auto) Gran # Lymph # Sanders # Eos # Baso # pO2 VBG pH VBG pCO2 VBG HCO3 VBG Total CO2 VBG O2 Sat (Calc) VBG Base Excess VBG Potassium Glucose Lactate FiO2 Sodium 135 Potassium 3.6 Chloride 100 Carbon Dioxide 22 Anion Gap 17 BUN 3 L Creatinine 0.7 Est GFR ( Amer) > 60 Est GFR (Non-Af Amer) > 60 Random Glucose 77 Lactic Acid Calcium 9.0 Phosphorus Magnesium Total Bilirubin AST ALT Alkaline Phosphatase Ammonia Total Creatine Kinase CK-MB (CK-2) CK-MB (CK-2) % Troponin I Total Protein Albumin Globulin Albumin/Globulin Ratio Procalcitonin TSH 3rd Generation Venous Blood Potassium Urine Color Yellow Urine Appearance Clear Urine pH 6.5 Ur Specific [place] <= 1.005 Urine Protein Negative Urine Glucose (UA) Negative Urine Ketones Negative Urine Blood Trace-intact H Urine Nitrate Negative Urine Bilirubin Negative Urine Urobilinogen 0.2 Ur Leukocyte Esterase Small H Urine RBC 0 - 2 Urine WBC 5 - 10 Urine Osmolality Ur Random Creatinine 4 Ur Random Sodium Ur Random Potassium Salicylates Urine Opiates Screen Urine Methadone Screen Acetaminophen Ur Barbiturates Screen Ur Phencyclidine Scrn Ur Amphetamines Screen U Benzodiazepines Scrn U Oth Cocaine Metabols U Cannabinoids Screen HIV 1&2 Antibody Screen
[2017-03-10 17:51] LABS: HEPATITIS B SURFACE AG NEGATIVE (NEGATIVE)
[2017-03-10 17:56] LABS: HEPATITIS A IGM NEGATIVE (NEGATIVE); HEPATITIS B CORE AB NEGATIVE (NEGATIVE)
[2017-03-10 18:08] LABS: HEPATITIS C ANTIBODY NEGATIVE (NEGATIVE)
[2017-03-10 18:09] LABS: VENOUS BLOOD GAS BASE EXCESS 2.9 mmol/L (0.0-2.0); VENOUS BLOOD GAS PO2 100 mm/Hg (30-55); VENOUS BLOOD PH 7.42 (7.32-7.43)
[2017-03-10 18:18] LABS: BLOOD UREA NITROGEN 4 mg/dL (7-21); CALCIUM 9.1 mg/dL (8.4-10.5); GFR AFRICAN-AMERICAN > 60; GFR NON-AFRICAN AMERICAN > 60
[2017-03-10 21:42] LABS: BLOOD UREA NITROGEN 4 mg/dL (7-21); CALCIUM 9.6 mg/dL (8.4-10.5); GFR AFRICAN-AMERICAN > 60; GFR NON-AFRICAN AMERICAN > 60
[2017-03-11 01:25] LABS: BLOOD UREA NITROGEN 5 mg/dL (7-21); CALCIUM 9.2 mg/dL (8.4-10.5); GFR AFRICAN-AMERICAN > 60; GFR NON-AFRICAN AMERICAN > 60
[2017-03-11 06:03] LABS: BASO # 0.02 K/mm3 (0.0-2.0); BASO % 0.2 % (0.0-3.0); EOS % 0.1 % (1.5-5.0); GRAN # 9.04 (1.4-6.5); GRAN % 80.9 % (50.0-68.0); HEMOGLOBIN 16.6 gm/dL (14.0-18.0); LYMPH # 1.2 (1.2-3.4); LYMPH % 10.8 % (22.0-35.0); MEAN CELL VOLUME 83.8 fL (80.0-105.0); MEAN CORPUSCULAR HEMOGLOBIN 30.3 pg (25.0-35.0); MEAN CORPUSCULAR HGB CONC 36.2 g/dl (31.0-37.0); MEAN PLATELET VOLUME 8.6 fl (7.0-11.0); MONO # 0.9 (0.1-0.6); PLATELET COUNT 271 10^3/uL (120.0-450.0); RBC 5.48 10^6/uL (3.5-6.1); WHITE BLOOD COUNT 11.2 10^3/ul (4.5-11.0)
[2017-03-11 06:16] LABS: ALB/GLOB RATIO 1.2 (1.1-1.8); ALBUMIN 4.5 g/dL (3.0-4.8); ALT/SGPT 180 U/L (7-56); BLOOD UREA NITROGEN 6 mg/dL (7-21); CALCIUM 9.5 mg/dL (8.4-10.5); GFR AFRICAN-AMERICAN > 60; GFR NON-AFRICAN AMERICAN > 60; MAGNESIUM 2.1 mg/dL (1.7-2.2)
[2017-03-11 07:13] LABS: AST/SGOT 999 U/L (15-59)
[2017-03-11] MEDS: Enoxaparin 40 mg Syringe SC SCH (09:01)
[2017-03-11 09:48] LABS: INR 1.17 (0.93-1.08); PROTHROMBIN TIME 12.6 Seconds (9.9-11.8)
--- NOTE | 2017-03-11 10:21 | CP.PCM.PN ---
<AnjelCatrachita sy - Last Filed: 03/11/17 10:33> Subjective - Date & Time of Evaluation Date of Evaluation: 03/11/17 Time of Evaluation: 10:18 - Subjective Subjective: ICU Progress Note Patient seen and examined at bedside. Overnight patient was agitated and received 2mg of Ativan. This AM he is awake and alert and does not remember yesterday at all. He denies having any pain, CP, SOB, n/v/d, numbness/tingling, vision changes, headache, fever or chills. He does report that the benitez is bothering him. Otherwise, his mental status has greatly improved. Objective - Vital Signs/Intake and Output Vital Signs (last 24 hours): Temp Pulse Resp BP Pulse Ox 98.4 F 98 H 27 H 129/86 93 L 03/11/17 08:45 03/11/17 09:49 03/11/17 09:46 03/11/17 09:34 03/11/17 09:34 Intake and Output: 03/11/17 03/11/17 06:59 18:59 Output Total 800 Balance -800 - Medications Medications: Current Medications Enoxaparin Sodium (Lovenox) 40 mg SC DAILY [facility] PRN Reason: Protocol Last Admin: 03/11/17 09:01 Dose: 40 mg Ondansetron HCl (Zofran Inj) 4 mg IVP Q6H PRN PRN Reason: Nausea/Vomiting Pantoprazole Sodium (Protonix Inj) 40 mg IVP DAILY [facility] Last Admin: 03/11/17 09:01 Dose: 40 mg - Labs Labs: 03/11/17 05:30 03/11/17 05:30 PT 12.6 Seconds (9.9-11.8) H 03/11/17 09:34 INR 1.17 (0.93-1.08) H 03/11/17 09:34 - Constitutional Appears: No Acute Distress - Head Exam Head Exam: ATRAUMATIC, NORMAL INSPECTION, NORMOCEPHALIC - Eye Exam Eye Exam: Normal appearance, PERRL, Scleral icterus Pupil Exam: NORMAL ACCOMODATION, PERRL - ENT Exam ENT Exam: Mucous Membranes Moist - Neck Exam Neck Exam: Full ROM - Respiratory Exam Respiratory Exam: Clear to Ausculation Bilateral, NORMAL BREATHING PATTERN. absent: Rales, Rhonchi, Wheezes - Cardiovascular Exam Cardiovascular Exam: REGULAR RHYTHM, +S1, +S2. absent: Gallop, Rubs - GI/Abdominal Exam GI & Abdominal Exam: Soft, Normal Bowel Sounds. absent: Rigid, Tenderness, Mass , Rebound - Extremities Exam Extremities Exam: Normal Inspection. 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 Plan: Neuro: A&O x 3 Neuro checks Seizure precaution Neuro consulted- recs appreciated MRI of brain did not show acute abnormalities, but saw small left periatrial white matter focus, which is nonspecific. Several small foci of FLAIR hyperintense nonspecific gliosis are identified within the right parietal cortical and subcortical tissues. This can be artifact. Please see full report for more details. CV: Hemodynamically stable at this time Maintain MAP >65 Resp: On Room air Continue HOB elevation, aspiration precaution Maintain spO2>90% GI: Transaminitis with AST:ALT ratio about 9:2 Can be secondary to seizure- will recheck CK If CK elevated- will start NS@100 Abdominal U/S pending final read Pt was prepping for colonoscopy and has chronic abdominal pain prior to admission GI consulted Pt passed beside swallow eval- advance diet as tolerated Nephro/: Hyponatremia secondary to psychogenic polydipsia resolved Output of 9L in 2 days Will monitor I&O, d/c benitez Nephro consulted Heme: H/H Stable No overt signs of bleeding ID: Leukocytosis trending down Afebrile Septic workup negative so far Will monitor WBC Endo: Maintain euvolemia, euglycemia Psych: Hx of anxiety- Psych consulted GI ppx: PTX DVT ppx: Lovenox Case seen, discussed and reviewed with attending Darryn Yang PGY1 <Ana LA,Jr H - Last Filed: 03/11/17 17:19> Objective - Vital Signs/Intake and Output Vital Signs (last 24 hours): Temp Pulse Resp BP Pulse Ox 98 F 74 13 137/81 97 03/11/17 11:06 03/11/17 14:10 03/11/17 14:10 03/11/17 14:00 03/11/17 14:10 Intake and Output: 03/11/17 03/11/17 06:59 18:59 Output Total 800 Balance -800 - Medications Medications: Current Medications Enoxaparin Sodium (Lovenox) 40 mg SC DAILY [facility] PRN Reason: Protocol Last Admin: 03/11/17 09:01 Dose: 40 mg Sodium Chloride (Sodium Chloride 0.9%) 1,000 mls @ 200 mls/hr IV .Q5H [facility] Last Admin: 03/11/17 12:00 Dose: 200 mls/hr Ibuprofen (Motrin Tab) 600 mg PO Q6H PRN PRN Reason: Pain, moderate (4-7) Last Admin: 03/11/17 15:46 Dose: 600 mg Ondansetron HCl (Zofran Inj) 4 mg IVP Q6H PRN PRN Reason: Nausea/Vomiting Pantoprazole Sodium (Protonix Inj) 40 mg IVP DAILY [facility] Last Admin: 03/11/17 09:01 Dose: 40 mg - Labs Labs: 03/11/17 05:30 03/11/17 16:37 PT 12.6 Seconds (9.9-11.8) H 03/11/17 09:34 INR 1.17 (0.93-1.08) H 03/11/17 09:34 Attending/Attestation - Attestation I have personally seen and examined this patient.: Yes I have fully participated in the care of the patient.: Yes I have reviewed all pertinent clinical information, including history, physical exam and plan: Yes Notes (Text): 03/11/17 17:13 31 y/o W/ Symptomatic Hyponatremia from Polydypsia Na corrected and stable at appx 135. Mental status improved overnight. Currently aao x 3. no further seizures. Noted to have marked elevation of CK . urine output 9L in 36 hrs. Creatnine stable. No acidosis. Monitor w/ NS hydration and BMP/CK q 12 hrs. nephrology following in case HD is required. GI consult and US abd for AST elevation in the setting of prolonged abd pain and Rhabdomyolysis. DVT p PPI cc time 65 min
--- NOTE | 2017-03-11 11:07 | US ---
HISTORY: elevated LFT COMPARISON: None. TECHNIQUE: Sonographic evaluation of the abdomen. FINDINGS: LIVER: Measures 14.5 x 10.8 x 10.0 cm. Normal echogenicity of the liver parenchyma. No mass. No intrahepatic bile duct dilatation. GALLBLADDER: Unremarkable. No gallstones. COMMON BILE DUCT: Measures 3.4 mm. No stones. No dilatation. PANCREAS: Unremarkable as visualized. No mass. No ductal dilatation. RIGHT KIDNEY: Measures 10.2 x 5.6 x 5.7cm. Overall echogenicity appears increased No calculus, mass, or hydronephrosis. LEFT KIDNEY: Measures 11.0 x 6.0 x 5.5cm. Possible increased echogenicity as well. No calculus, mass, or hydronephrosis. SPLEEN: Normal in size and contour. No mass. AORTA: No aneurysmal dilatation. IVC: Unremarkable. OTHER FINDINGS: None. IMPRESSION: Unremarkable appearing liver. The overall echogenicity of the kidneys especially the right kidney appears increased -a medical renal disease/condition can result in this appearance. Correlate clinically.
--- NOTE | 2017-03-11 11:25 | MRI ---
PROCEDURE: MRI BRAIN WITH AND WITHOUT CONTRAST HISTORY: make sure to include brainstem COMPARISON: None. TECHNIQUE: Multiplanar, multisequence MR images of the brain were obtained with and without intravenous contrast enhancement. 15 cc of Omniscan FINDINGS: HEMORRHAGE: None DWI: No evidence of an acute or early subacute infarction. BRAIN PARENCHYMA: No mass,mass effect or edema. No atrophy or chronic microvascular ischemic changes. There is a small nonspecific white matter lesion adjacent to the left lateral ventricle. This is of uncertain clinical significance. This is seen on image 15 series 6. ENHANCEMENT: No abnormal intracranial enhancement. VENTRICLES: Unremarkable. No hydrocephalus. CRANIUM: Unremarkable. ORBITS: Grossly unremarkable. PARANASAL SINUSES/MASTOIDS: There is a mucous retention cyst in the left maxillary sinus VASCULAR SYSTEM: Skull base flow voids intact. OTHER FINDINGS: The report concurs with the preliminary [facility] report. IMPRESSION: No acute intracranial finding
--- NOTE | 2017-03-11 11:37 | CP.PCM.CON ---
<Sol Francis - Last Filed: 03/11/17 15:55> History of Present Illness - History of Present Illness History of Present Illness: GI consult note 31 year old male with past medical history of chronic abdominal pain and anxiety presented to hospital for anxiety and abdominal pain. GI is consulted for abd pain and transaminitis. Patient was seen and [facility] about 3 days ago with similar symptoms. At [facility], patient had CT of abd/ pelvis with IV contrast which was normal. He was sent home and asked to follow up with his GI specialist. Patient was scheduled for a colonoscopy procedure for 03/09/17 and was using the prep for the procedure. Patient felt that he was dehydrated due to the prep and kept drinking a lot of water. He returned to [facility] because he felt "there is something wrong" with him and had anxiety. Patient was found to have hyponatremia at 118 and had elevated lactic acid at 9.4. Patient also had a witnessed tonic/clonic seizure in ED and was given stat dose of Ativan. He was then given a 100 cc bolus of 3% NS. After seizure, patient had AMS and was agitated. Currently, patient is lethargic but A&Ox3. Family is at bedside and help in giving history. Patient developed abdominal pain about 2 years ago. Abdominal pain is located in RUQ and radiates up to chest and throat. It feels like a burning sensation and is worse immediately after eating food. Patient does c/o a sour taste in his mouth when he wakes up in the morning. Patient also mentions occasional pain in his mid-back region. Patient follows with GI specialist at [place] (he doesn't recall the name of the physician). Patient had EGD done about last year for the abdominal pain. Patient states that EGD was normal. Patient has been prescribed Omperazole but is noncompliant with the medication. 12 point ROS are negative except for the above mentioned. PMHx: stated above Sx: denies NKDA Meds: denies using regular medications Social: Denies tobacco or drug use. Drinks ETOH on a weekly basis, liquor ranging from a a couple of drinks to many drinks. Past Patient History - Infectious Disease Hx of Infectious Diseases: None - Tetanus Immunizations Tetanus Immunization: Unknown - Past Social History Smoking Status: Never Smoked Chewing Tobacco Use: No Cigar Use: No Alcohol: Occasional Drugs: Denies - CARDIAC Hx Cardiac Disorders: No - PULMONARY Hx Asthma: Yes - NEUROLOGICAL Hx Neurological Disorder: No - HEENT Hx HEENT Problems: No - RENAL Hx Chronic Kidney Disease: No - ENDOCRINE/METABOLIC Hx Endocrine Disorders: No - HEMATOLOGICAL/ONCOLOGICAL Hx Blood Disorders: No - INTEGUMENTARY Hx Dermatological Problems: No - MUSCULOSKELETAL/RHEUMATOLOGICAL Hx Musculoskeletal Disorders: No - GASTROINTESTINAL Hx Gastroesophageal Reflux: Yes - GENITOURINARY/GYNECOLOGICAL Hx Genitourinary Disorders: No - PSYCHIATRIC Hx Depression: No Hx Substance Use: No - SURGICAL HISTORY Hx Surgeries: No - ANESTHESIA Hx Anesthesia: No Meds Allergies/Adverse Reactions: Allergies Allergy/AdvReac Type Severity Reaction Status Date / Time No Known Allergies Allergy Verified 03/08/17 09:33 - Medications Medications: Current Medications Enoxaparin Sodium (Lovenox) 40 mg SC DAILY [facility] PRN Reason: Protocol Last Admin: 03/11/17 09:01 Dose: 40 mg Ondansetron HCl (Zofran Inj) 4 mg IVP Q6H PRN PRN Reason: Nausea/Vomiting Pantoprazole Sodium (Protonix Inj) 40 mg IVP DAILY [facility] Last Admin: 03/11/17 09:01 Dose: 40 mg Physical Exam - Constitutional Appears: Non-toxic, No Acute Distress - Head Exam Head Exam: ATRAUMATIC - Eye Exam Eye Exam: EOMI - ENT Exam ENT Exam: Mucous Membranes Moist - Respiratory Exam Respiratory Exam: Clear to Auscultation Bilateral. absent: Accessory Muscle Use , Rales, Rhonchi, Wheezes, Respiratory Distress - Cardiovascular Exam Cardiovascular Exam: REGULAR RHYTHM, +S1, +S2. absent: Diastolic murmur, Gallop , Rubs, Systolic Murmur - GI/Abdominal Exam GI & Abdominal Exam: Normal Bowel Sounds, Soft. absent: Distended, Firm, Guarding, Organomegaly, Rigid, Tenderness - Extremities Exam Extremities exam: Negative for: pedal edema, tenderness - Neurological Exam Neurological exam: Alert, Oriented x3 - Psychiatric Exam Psychiatric exam: Normal Affect, Normal Mood - Skin Skin Exam: Dry, Intact, Normal Color, Warm Results - Vital Signs Recent Vital Signs: Last Vital Signs Temp 98 F 03/11/17 11:06 Pulse 99 H 03/11/17 11:05 Resp 15 03/11/17 11:05 BP 136/84 03/11/17 11:05 Pulse Ox 98 03/11/17 11:05 - Labs Result Diagrams: 03/11/17 05:30 03/11/17 05:30 Labs: Laboratory Results - last 24 hr 03/10/17 03/10/17 03/10/17 07:05 07:50 09:00 WBC RBC Hgb Hct MCV MCH MCHC RDW Plt Count MPV Gran % Lymph % (Auto) [place] % (Auto) Eos % (Auto) Baso % (Auto) Gran # Lymph # [place] # Eos # Baso # PT INR pO2 VBG pH VBG pCO2 VBG HCO3 VBG Total CO2 VBG O2 Sat (Calc) VBG Base Excess VBG Potassium Glucose Lactate FiO2 Sodium Potassium Chloride Carbon Dioxide Anion Gap BUN Creatinine Est GFR ( Amer) Est GFR (Non-Af Amer) Random Glucose Calcium Phosphorus Magnesium Total Bilirubin AST ALT Alkaline Phosphatase Troponin I < 0.01 Total Protein Albumin Globulin Albumin/Globulin Ratio Procalcitonin 0.05 L Venous Blood Potassium Urine Color Urine Appearance Urine pH Ur Specific [place] Urine Protein Urine Glucose (UA) Urine Ketones Urine Blood Urine Nitrate Urine Bilirubin Urine Urobilinogen Ur Leukocyte Esterase Urine RBC Urine WBC Urine Osmolality Ur Random Creatinine Ur Random Sodium Ur Random Potassium Urine Opiates Screen Urine Methadone Screen Ur Barbiturates Screen Ur Phencyclidine Scrn Ur Amphetamines Screen U Benzodiazepines Scrn U Oth Cocaine Metabols U Cannabinoids Screen Hepatitis A IgM Ab Hep Bs Antigen Hep B Core IgM Ab Hepatitis C Antibody HIV 1&2 Antibody Screen Negative 03/10/17 03/10/17 03/10/17 11:50 12:00 12:00 WBC RBC Hgb Hct MCV MCH MCHC RDW Plt Count MPV Gran % Lymph % (Auto) [place] % (Auto) Eos % (Auto) Baso % (Auto) Gran # Lymph # [place] # Eos # Baso # PT INR pO2 VBG pH VBG pCO2 VBG HCO3 VBG Total CO2 VBG O2 Sat (Calc) VBG Base Excess VBG Potassium Glucose Lactate FiO2 Sodium Potassium Chloride Carbon Dioxide Anion Gap BUN Creatinine Est GFR ( Amer) Est GFR (Non-Af Amer) Random Glucose Calcium Phosphorus Magnesium Total Bilirubin AST ALT Alkaline Phosphatase Troponin I Total Protein Albumin Globulin Albumin/Globulin Ratio Procalcitonin Venous Blood Potassium Urine Color Urine Appearance Urine pH Ur Specific [place] Urine Protein Urine Glucose (UA) Urine Ketones Urine Blood Urine Nitrate Urine Bilirubin Urine Urobilinogen Ur Leukocyte Esterase Urine RBC Urine WBC Urine Osmolality 184 Ur Random Creatinine Ur Random Sodium 48 Ur Random Potassium 9.1 Urine Opiates Screen Negative Urine Methadone Screen Negative Ur Barbiturates Screen Negative Ur Phencyclidine Scrn Negative Ur Amphetamines Screen Negative U Benzodiazepines Scrn Negative U Oth Cocaine Metabols Negative U Cannabinoids Screen Negative Hepatitis A IgM Ab Negative Hep Bs Antigen Negative Hep B Core IgM Ab Negative Hepatitis C Antibody Negative HIV 1&2 Antibody Screen 03/10/17 03/10/17 03/10/17 12:00 12:00 14:00 WBC RBC Hgb Hct MCV MCH MCHC RDW Plt Count MPV Gran % Lymph % (Auto) [place] % (Auto) Eos % (Auto) Baso % (Auto) Gran # Lymph # [place] # Eos # Baso # PT INR pO2 VBG pH VBG pCO2 VBG HCO3 VBG Total CO2 VBG O2 Sat (Calc) VBG Base Excess VBG Potassium Glucose Lactate FiO2 Sodium 135 Potassium 3.6 Chloride 100 Carbon Dioxide 22 Anion Gap 17 BUN 3 L Creatinine 0.7 Est GFR ( Amer) > 60 Est GFR (Non-Af Amer) > 60 Random Glucose 77 Calcium 9.0 Phosphorus Magnesium Total Bilirubin AST ALT Alkaline Phosphatase Troponin I Total Protein Albumin Globulin Albumin/Globulin Ratio Procalcitonin Venous Blood Potassium Urine Color Yellow Urine Appearance Clear Urine pH 6.5 Ur Specific [place] <= 1.005 Urine Protein Negative Urine Glucose (UA) Negative Urine Ketones Negative Urine Blood Trace-intact H Urine Nitrate Negative Urine Bilirubin Negative Urine Urobilinogen 0.2 Ur Leukocyte Esterase Small H Urine RBC 0 - 2 Urine WBC 5 - 10 Urine Osmolality Ur Random Creatinine 4 Ur Random Sodium Ur Random Potassium Urine Opiates Screen Urine Methadone Screen Ur Barbiturates Screen Ur Phencyclidine Scrn Ur Amphetamines Screen U Benzodiazepines Scrn U Oth Cocaine Metabols U Cannabinoids Screen Hepatitis A IgM Ab Hep Bs Antigen Hep B Core IgM Ab Hepatitis C Antibody HIV 1&2 Antibody Screen 03/10/17 03/10/17 03/10/17 17:55 17:55 21:05 WBC RBC Hgb Hct MCV MCH MCHC RDW Plt Count MPV Gran % Lymph % (Auto) [place] % (Auto) Eos % (Auto) Baso % (Auto) Gran # Lymph # [place] # Eos # Baso # PT INR pO2 100 H VBG pH 7.42 VBG pCO2 43.0 VBG HCO3 27.9 VBG Total CO2 29.2 H VBG O2 Sat (Calc) 99.7 H VBG Base Excess 2.9 H VBG Potassium 3.6 Glucose 93 Lactate 1.0 FiO2 21.0 Sodium 137 137.0 139 Potassium 3.6 4.3 Chloride 102 104.0 102 Carbon Dioxide 27 27 Anion Gap 12 14 BUN 4 L 4 L Creatinine 0.8 0.8 Est GFR ( Amer) > 60 > 60 Est GFR (Non-Af Amer) > 60 > 60 Random Glucose 90 71 Calcium 9.1 9.6 Phosphorus Magnesium Total Bilirubin AST ALT Alkaline Phosphatase Troponin I Total Protein Albumin Globulin Albumin/Globulin Ratio Procalcitonin Venous Blood Potassium 3.6 Urine Color Urine Appearance Urine pH Ur Specific [place] Urine Protein Urine Glucose (UA) Urine Ketones Urine Blood Urine Nitrate Urine Bilirubin Urine Urobilinogen Ur Leukocyte Esterase Urine RBC Urine WBC Urine Osmolality Ur Random Creatinine Ur Random Sodium Ur Random Potassium Urine Opiates Screen Urine Methadone Screen Ur Barbiturates Screen Ur Phencyclidine Scrn Ur Amphetamines Screen U Benzodiazepines Scrn U Oth Cocaine Metabols U Cannabinoids Screen Hepatitis A IgM Ab Hep Bs Antigen Hep B Core IgM Ab Hepatitis C Antibody HIV 1&2 Antibody Screen 03/11/17 03/11/17 03/11/17 01:05 05:30 05:30 WBC 11.2 H D RBC 5.48 Hgb 16.6 Hct 45.9 MCV 83.8 MCH 30.3 MCHC 36.2 RDW 13.0 Plt Count 271 MPV 8.6 Gran % 80.9 H Lymph % (Auto) 10.8 L [place] % (Auto) 8.0 H Eos % (Auto) 0.1 L Baso % (Auto) 0.2 Gran # 9.04 H Lymph # 1.2 [place] # 0.9 H Eos # 0.0 Baso # 0.02 PT INR pO2 VBG pH VBG pCO2 VBG HCO3 VBG Total CO2 VBG O2 Sat (Calc) VBG Base Excess VBG Potassium Glucose Lactate FiO2 Sodium 137 140 Potassium 4.1 4.0 Chloride 102 104 Carbon Dioxide 28 26 Anion Gap 11 14 BUN 5 L 6 L Creatinine 0.8 0.9 Est GFR ( Amer) > 60 > 60 Est GFR (Non-Af Amer) > 60 > 60 Random Glucose 71 74 Calcium 9.2 9.5 Phosphorus 4.4 Magnesium 2.1 Total Bilirubin 2.7 H AST 999 H ALT 180 H Alkaline Phosphatase 82 Troponin I Total Protein 8.0 Albumin 4.5 Globulin 3.6 Albumin/Globulin Ratio 1.2 Procalcitonin Venous Blood Potassium Urine Color Urine Appearance Urine pH Ur Specific [place] Urine Protein Urine Glucose (UA) Urine Ketones Urine Blood Urine Nitrate Urine Bilirubin Urine Urobilinogen Ur Leukocyte Esterase Urine RBC Urine WBC Urine Osmolality Ur Random Creatinine Ur Random Sodium Ur Random Potassium Urine Opiates Screen Urine Methadone Screen Ur Barbiturates Screen Ur Phencyclidine Scrn Ur Amphetamines Screen U Benzodiazepines Scrn U Oth Cocaine Metabols U Cannabinoids Screen Hepatitis A IgM Ab Hep Bs Antigen Hep B Core IgM Ab Hepatitis C Antibody HIV 1&2 Antibody Screen 03/11/17 09:34 WBC RBC Hgb Hct MCV MCH MCHC RDW Plt Count MPV Gran % Lymph % (Auto) [place] % (Auto) Eos % (Auto) Baso % (Auto) Gran # Lymph # [place] # Eos # Baso # PT 12.6 H INR 1.17 H pO2 VBG pH VBG pCO2 VBG HCO3 VBG Total CO2 VBG O2 Sat (Calc) VBG Base Excess VBG Potassium Glucose Lactate FiO2 Sodium Potassium Chloride Carbon Dioxide Anion Gap BUN Creatinine Est GFR ( Amer) Est GFR (Non-Af Amer) Random Glucose Calcium Phosphorus Magnesium Total Bilirubin AST ALT Alkaline Phosphatase Troponin I Total Protein Albumin Globulin Albumin/Globulin Ratio Procalcitonin Venous Blood Potassium Urine Color Urine Appearance Urine pH Ur Specific [place] Urine Protein Urine Glucose (UA) Urine Ketones Urine Blood Urine Nitrate Urine Bilirubin Urine Urobilinogen Ur Leukocyte Esterase Urine RBC Urine WBC Urine Osmolality Ur Random Creatinine Ur Random Sodium Ur Random Potassium Urine Opiates Screen Urine Methadone Screen Ur Barbiturates Screen Ur Phencyclidine Scrn Ur Amphetamines Screen U Benzodiazepines Scrn U Oth Cocaine Metabols U Cannabinoids Screen Hepatitis A IgM Ab Hep Bs Antigen Hep B Core IgM Ab Hepatitis C Antibody HIV 1&2 Antibody Screen Assessment & Plan - Assessment and Plan (Free Text) Assessment: 31 year old male with past medical history of chronic abdominal pain and anxiety is being seen so abd pain and transmainitis. CT abd/pelvis with IV contrast done on 03/08 showed normal bowels, pancreas, gallbladder and liver. However Ct did show mild B/L hydronephrosis and hydroureter but no calculus. EGD was done some time last year with [facility] which patient states was negative. On blood work today, patient is found to have AST of 999, ALT of 180 and T bili of 2.7. Patient's baseline AST and ALT are WNL. Patient has chronically elevated T bili. CPK is found to be [id number] (on admission 1588). Abd US today is unremarkable for gallbladder, liver or pancreatic pathology. Abdominal pain - Pain may be related to gallbladder pathology but less likely as abd US was normal. Abd pain can also be due to constipation vs. GERD - Patient does also c/o occasional back pain and in setting of CT imaging findings of mild hydronephrosis, recommend follow up - Recommend outpatient colonoscopy Acute on chronic transaminitis - Likely due to muscle injury from seizure. CPK if found to be [id number]. Patient was also given medications that can cause hepatotoxicity. Transaminitis can be due to combination of causes. - AST 999, ALT 180, T bili 2.7 - T bili is chronically elevated at around 1.9. Will check direct bilirubin - Hepatitis panel and HIV are negative. Will check Hepatitis core total Ab and surface Ab for chronic hep B infection and previous immunization status - Will check lipid panel - Will check patient for autoimmune hepatitis: SUDHA, anti-smooth muscle, IgG, IgA , IgM, liver kidney microsome Ab - will check iron studies - portal vein normal on previous abd US. If levels continue to rise, will consider repeat duplex abd US Case discussed with attending, Dr. Small - Date & Time Date: 03/11/17 Time: 12:40 <Torsten Small - Last Filed: 03/12/17 16:44> Meds - Medications Medications: Current Medications Benzocaine/Menthol (Cepacol Sore Throat) 1 [place]omas [place] Q2H PRN PRN Reason: Sore Throat Enoxaparin Sodium (Lovenox) 40 mg SC DAILY [facility] PRN Reason: Protocol Last Admin: 03/12/17 09:09 Dose: 40 mg Sodium Chloride (Sodium Chloride 0.9%) 1,000 mls @ 200 mls/hr IV .Q5H [facility] Last Admin: 03/12/17 09:06 Dose: 200 mls/hr Ibuprofen (Motrin Tab) 600 mg PO Q6H PRN PRN Reason: Pain, moderate (4-7) Last Admin: 03/12/17 08:02 Dose: 600 mg Ondansetron HCl (Zofran Inj) 4 mg IVP Q6H PRN PRN Reason: Nausea/Vomiting Pantoprazole Sodium (Protonix Inj) 40 mg IVP DAILY [facility] Last Admin: 03/12/17 09:05 Dose: 40 mg Results - Vital Signs Recent Vital Signs: Last Vital Signs Temp 98 F 03/12/17 09:02 Pulse 78 03/12/17 14:00 Resp 15 03/12/17 14:00 BP 136/72 03/12/17 14:00 Pulse Ox 100 03/12/17 14:00 - Labs Result Diagrams: 03/12/17 05:30 03/12/17 05:30 Labs: Laboratory Results - last 24 hr 03/11/17 03/11/17 03/11/17 13:00 13:41 13:41 WBC RBC Hgb Hct MCV MCH MCHC RDW Plt Count MPV Sodium Potassium Chloride Carbon Dioxide Anion Gap BUN Creatinine Est GFR ( Amer) Est GFR (Non-Af Amer) Random Glucose Calcium Ferritin 314.0 Total Bilirubin AST ALT Alkaline Phosphatase Total Creatine Kinase Total Protein Albumin Globulin Albumin/Globulin Ratio IgG 1486.3 IgA 175.7 IgM 88.2 Hep Bs Antibody Negative 03/11/17 03/12/17 03/12/17 16:37 05:30 05:30 WBC 6.8 D RBC 4.92 Hgb 14.3 Hct 42.0 MCV 85.4 MCH 29.1 MCHC 34.0 RDW 13.1 Plt Count 233 MPV 8.4 Sodium 137 139 Potassium 4.4 4.0 Chloride 102 106 Carbon Dioxide 27 28 Anion Gap 12 9 L BUN 8 10 Creatinine 0.9 0.8 Est GFR ( Amer) > 60 > 60 Est GFR (Non-Af Amer) > 60 > 60 Random Glucose 79 76 Calcium 9.1 8.8 Ferritin Total Bilirubin 2.0 H AST 1235 H ALT 317 H Alkaline Phosphatase 57 Total Creatine Kinase 170523 H 744081 H Total Protein 6.9 Albumin 3.6 Globulin 3.3 Albumin/Globulin Ratio 1.1 IgG IgA IgM Hep Bs Antibody Attending/Attestation - Attestation I have personally seen and examined this patient.: Yes I have fully participated in the care of the patient.: Yes I have reviewed all pertinent clinical information: Yes Notes (Text): 03/12/17 16:40 31 year old male with h/o chronic abdominal pain and anxiety admitted with hyponatremia in the setting of bowel prep for colonoscopy and excessive water intake, complicated by seizure and rhabdomyolysis. 1. Elevated LFTs 2. Abdominal pain 3. Gilbert's syndrome Plan: -elevated AST/ALT ratio > 3:1 and overall clinical picture is consistent with muscle injury rather than acute liver injury -would continue to monitor lfts daily and follow them as an outpatient -imaging hasn't shown any signs of liver disease including abdominal CT scan and US -viral hepatitis serologies are negative -no evidence of hemochromatosis -autoimmune serologies pending -he has a mild chronic unconjugated hyperbilirubinemia which is consistent with Gilbert's syndrome -abdominal pain is improved at this point and he is tolerated a diet -would continue the PPI daily empirically for dyspepsia/abdominal pain -will sign off at this time
[2017-03-11] MEDS ORDERED: Sodium Chloride 0.9% 1,000 ML IV SCH (11:47)
[2017-03-11] MEDS: Sodium Chloride 0.9% 1,000 ML IV SCH ×2 (12:00→21:50)
[2017-03-11 13:53] LABS: BILIRUBIN,DIRECT 0.5 mg/dL (0.0-0.4)
[2017-03-11 14:02] LABS: % IRON SATURATION 12 % (20-55); IRON 36 ug/dL (45-180); TOTAL IRON BINDING CAPACITY 294 ug/dL (261-462)
[2017-03-11 16:50] LABS: BLOOD UREA NITROGEN 8 mg/dL (7-21); CALCIUM 9.1 mg/dL (8.4-10.5); GFR AFRICAN-AMERICAN > 60; GFR NON-AFRICAN AMERICAN > 60
--- NOTE | 2017-03-11 17:13 | CP.PCM.PCO ---
Assessment & Plan - Assessment and Plan (Free Text) Assessment: NEURO COMMUNICATION NOTE: MRI BRAIN REVIEWED WHICH SHOWED NO ACUTE ABNORMALITY. MONITOR ELECTROLYTES FOLLOW WITH GI FOR TRANSAMINITIS PSYCH EVALUATION FOR ANXIETY NO SEIZURE MEDS NEEDED SINCE IT WAS PROVOKED SEIZURE WILL SIGN OFF. Janny FORD MD
[2017-03-11 21:45] LABS: IMMUNOGLOBULIN G 1486.3 mg/dL (700.0-1600.0); IMMUNOGLOBULIN M 88.2 mg/dL (40.0-230.0)
[2017-03-11 21:46] LABS: IMMUNOGLOBULIN A 175.7 mg/dL (70.0-400.0)
[2017-03-12] MEDS: Sodium Chloride 0.9% 1,000 ML IV SCH ×3 (05:57→09:06)
[2017-03-12 06:20] LABS: HEMOGLOBIN 14.3 gm/dL (14.0-18.0); MEAN CELL VOLUME 85.4 fL (80.0-105.0); MEAN CORPUSCULAR HEMOGLOBIN 29.1 pg (25.0-35.0); MEAN PLATELET VOLUME 8.4 fl (7.0-11.0); RBC 4.92 10^6/uL (3.5-6.1); RED CELL DISTRIBUTION WIDTH 13.1 % (11.5-14.5); WHITE BLOOD COUNT 6.8 10^3/ul (4.5-11.0)
[2017-03-12 06:34] LABS: ALB/GLOB RATIO 1.1 (1.1-1.8); ALBUMIN 3.6 g/dL (3.0-4.8); ALT/SGPT 317 U/L (7-56); BLOOD UREA NITROGEN 10 mg/dL (7-21); CALCIUM 8.8 mg/dL (8.4-10.5); GFR AFRICAN-AMERICAN > 60; GFR NON-AFRICAN AMERICAN > 60
[2017-03-12 06:47] LABS: AST/SGOT 1235 U/L (15-59)
--- NOTE | 2017-03-12 07:05 | CP.PCM.PN ---
<CeliaCatrachita - Last Filed: 03/12/17 10:08> Subjective - Date & Time of Evaluation Date of Evaluation: 03/12/17 Time of Evaluation: 07:02 - Subjective Subjective: ICU Progress Note Patient seen and examined at bedside. There were no acute overnight events. Patient reports he feels tired this am with headache. He also has sore throat. He denies cough, CP, SOB, n/v/d, pain, dysuria, hematuria, fever or chills. Objective - Vital Signs/Intake and Output Vital Signs (last 24 hours): Temp Pulse Resp BP Pulse Ox 98.4 F 60 10 L 133/65 98 03/12/17 04:00 03/12/17 04:20 03/12/17 04:20 03/12/17 04:00 03/12/17 04:20 Intake and Output: 03/12/17 03/12/17 06:59 18:59 Intake Total 3150 Output Total 2100 Balance 1050 - Medications Medications: Current Medications Enoxaparin Sodium (Lovenox) 40 mg SC DAILY [facility] PRN Reason: Protocol Last Admin: 03/11/17 09:01 Dose: 40 mg Sodium Chloride (Sodium Chloride 0.9%) 1,000 mls @ 200 mls/hr IV .Q5H [facility] Last Admin: 03/12/17 05:57 Dose: 200 mls/hr Ibuprofen (Motrin Tab) 600 mg PO Q6H PRN PRN Reason: Pain, moderate (4-7) Last Admin: 03/11/17 15:46 Dose: 600 mg Ondansetron HCl (Zofran Inj) 4 mg IVP Q6H PRN PRN Reason: Nausea/Vomiting Pantoprazole Sodium (Protonix Inj) 40 mg IVP DAILY [facility] Last Admin: 03/11/17 09:01 Dose: 40 mg - Labs Labs: 03/12/17 05:30 03/12/17 05:30 PT 12.6 Seconds (9.9-11.8) H 03/11/17 09:34 INR 1.17 (0.93-1.08) H 03/11/17 09:34 - Constitutional Appears: No Acute Distress - Head Exam Head Exam: ATRAUMATIC, NORMAL INSPECTION, NORMOCEPHALIC - Eye Exam Eye Exam: Normal appearance, PERRL Pupil Exam: NORMAL ACCOMODATION, PERRL - ENT Exam ENT Exam: Mucous Membranes Moist - Neck Exam Neck Exam: Full ROM - Respiratory Exam Respiratory Exam: Clear to Ausculation Bilateral, NORMAL BREATHING PATTERN. absent: Rales, Rhonchi, Wheezes - Cardiovascular Exam Cardiovascular Exam: Tachycardia, REGULAR RHYTHM, +S1, +S2. absent: Gallop, Rubs, Murmur - GI/Abdominal Exam GI & Abdominal Exam: Soft, Normal Bowel Sounds. absent: Rigid, Tenderness, Mass , Rebound - Extremities Exam Extremities Exam: Normal Inspection. 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 Patient now has acute rhabdomylysis secondary to seizure and hyponatremia. Plan: Neuro: Pt is A&O x 3 Continue seizure precaution Neuro consulted- recs appreciated CV: HD stable Resp: Pt comfortable on Room air Maintain spO2>90% GI: Transaminitis increasing- can be secondary to elevated CK Abdominal U/S showed echogenicity of R kidney, but otherwise normal GI consulted- recs appreciated Continue Regular diet Nephro/: CK Trending down but still elevated No hypocalcemia or renal failure at this time NS@200 Continue to monitor urine output Nephro consulted- recs appreciated Heme: Hgb stable. Continue to monitor CBC ID: No leukocytosis, afebrile Blood cultures negative Endo: Continue to maintain euglycemia Psych: Psych consulted for history of anxiety GI ppx: PTX DVT ppx: Lovenox Dispo: Patient is stable at this time. He will be transferred to med/surg. Dr. Cowan is aware of transfer. Case seen, discussed and reviewed with attending Darryn Yang PGY1 <Ramesh Bush - Last Filed: 03/12/17 14:25> Objective - Vital Signs/Intake and Output Vital Signs (last 24 hours): Temp Pulse Resp BP Pulse Ox 98 F 78 15 136/72 100 03/12/17 09:02 03/12/17 14:00 03/12/17 14:00 03/12/17 14:00 03/12/17 14:00 Intake and Output: 03/12/17 03/12/17 06:59 18:59 Intake Total 3150 Output Total 2100 Balance 1050 - Medications Medications: Current Medications Benzocaine/Menthol (Cepacol Sore Throat) 1 thomas MT Q2H PRN PRN Reason: Sore Throat Enoxaparin Sodium (Lovenox) 40 mg SC DAILY [facility] PRN Reason: Protocol Last Admin: 03/12/17 09:09 Dose: 40 mg Sodium Chloride (Sodium Chloride 0.9%) 1,000 mls @ 200 mls/hr IV .Q5H [facility] Last Admin: 03/12/17 09:06 Dose: 200 mls/hr Ibuprofen (Motrin Tab) 600 mg PO Q6H PRN PRN Reason: Pain, moderate (4-7) Last Admin: 03/12/17 08:02 Dose: 600 mg Ondansetron HCl (Zofran Inj) 4 mg IVP Q6H PRN PRN Reason: Nausea/Vomiting Pantoprazole Sodium (Protonix Inj) 40 mg IVP DAILY [facility] Last Admin: 03/12/17 09:05 Dose: 40 mg - Labs Labs: 03/12/17 05:30 03/12/17 05:30 PT 12.6 Seconds (9.9-11.8) H 03/11/17 09:34 INR 1.17 (0.93-1.08) H 03/11/17 09:34 Attending/Attestation - Attestation I have personally seen and examined this patient.: Yes I have fully participated in the care of the patient.: Yes I have reviewed all pertinent clinical information, including history, physical exam and plan: Yes Notes (Text): 03/12/17 14:21 31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 Patient also has severe rhabdomyolysis and secondary transaminitis. He is getting NS 200 cc/hr with the goal of u/o >0.5 cc/kg/hr. GI consult is appreciated--No significant hepatobilliary pathology. protecting airways, hemodynamically stable, CPK is improving, LFTs are lagging behind, but expected as per GI service. DVT/GI prophylaxis ccm time 40 min
[2017-03-12] MEDS ORDERED: Benzocaine/Menthol (Cepacol) Lozenge MT PRN (07:50)
[2017-03-12] MEDS: Enoxaparin 40 mg Syringe SC SCH (09:09)
--- NOTE | 2017-03-12 09:26 | CP.PCM.PN ---
Subjective - Date & Time of Evaluation Date of Evaluation: 03/12/17 Time of Evaluation: 09:23 - Subjective Subjective: GI progress note Pt is seen and examined at bedside. No acute events overnight. Patient is resting comfortably and is A&Ox 3. Patient c/o of a slight LÓPEZ that he attributes to not eating. Patient denies having any abd pain, N/V/D/C. 12 point ROS are negative except for the above mentioned. Objective - Vital Signs/Intake and Output Vital Signs (last 24 hours): Temp Pulse Resp BP Pulse Ox 98 F 70 17 137/60 100 03/12/17 09:02 03/12/17 08:16 03/12/17 08:10 03/12/17 08:01 03/12/17 08:10 Intake and Output: 03/12/17 03/12/17 06:59 18:59 Intake Total 3150 Output Total 2100 Balance 1050 - Medications Medications: Current Medications Benzocaine/Menthol (Cepacol Sore Throat) 1 thomas MT Q2H PRN PRN Reason: Sore Throat Enoxaparin Sodium (Lovenox) 40 mg SC DAILY [facility] PRN Reason: Protocol Last Admin: 03/12/17 09:09 Dose: 40 mg Sodium Chloride (Sodium Chloride 0.9%) 1,000 mls @ 200 mls/hr IV .Q5H [facility] Last Admin: 03/12/17 09:06 Dose: 200 mls/hr Ibuprofen (Motrin Tab) 600 mg PO Q6H PRN PRN Reason: Pain, moderate (4-7) Last Admin: 03/12/17 08:02 Dose: 600 mg Ondansetron HCl (Zofran Inj) 4 mg IVP Q6H PRN PRN Reason: Nausea/Vomiting Pantoprazole Sodium (Protonix Inj) 40 mg IVP DAILY [facility] Last Admin: 03/12/17 09:05 Dose: 40 mg - Labs Labs: 03/12/17 05:30 03/12/17 05:30 PT 12.6 Seconds (9.9-11.8) H 03/11/17 09:34 INR 1.17 (0.93-1.08) H 03/11/17 09:34 - Constitutional Appears: Non-toxic, No Acute Distress - Head Exam Head Exam: ATRAUMATIC - Eye Exam Eye Exam: EOMI - ENT Exam ENT Exam: Mucous Membranes Moist - Respiratory Exam Respiratory Exam: Clear to Ausculation Bilateral. absent: Accessory Muscle Use , Rales, Rhonchi, Wheezes, Respiratory Distress, Stridor - Cardiovascular Exam Cardiovascular Exam: REGULAR RHYTHM, +S1, +S2. absent: Gallop, Rubs, Murmur - GI/Abdominal Exam GI & Abdominal Exam: Normal Bowel Sounds. absent: Distended, Firm, Guarding, Rigid, Soft, Tenderness, Organomegaly, Rebound - Extremities Exam Extremities Exam: Full ROM. absent: Pedal Edema - Neurological Exam Neurological Exam: Alert, Awake, Oriented x3 - Psychiatric Exam Psychiatric exam: Normal Affect, Normal Mood - Skin Skin Exam: Dry, Intact, Normal Color, Warm Assessment and Plan - Assessment and Plan (Free Text) Assessment: 31 year old male with past medical history of chronic abdominal pain and anxiety is being seen for abd pain and transmainitis. CT abd/pelvis with IV contrast done on 03/08 showed normal bowels, pancreas, gallbladder and liver. However Ct did show mild B/L hydronephrosis and hydroureter but no calculus. EGD was done some time last year with [facility] which patient states was negative. Abd US was unremarkable for gallbladder, liver or pancreatic pathology. Abdominal pain -Improved - Pain may be related to gallbladder pathology but less likely as abd US was normal. Abd pain can also be due to constipation vs. GERD - Patient does also c/o occasional back pain and in setting of CT imaging findings of mild hydronephrosis. recommend follow up - Recommend outpatient colonoscopy Acute on chronic transaminitis - Likely due to muscle injury from seizure. CPK trending down. - Continue IV fluids for treatment of rhabdomyolysis - T bili is chronically elevated. D bili is found to be 0.5. Most likely elevation of indirect bilirubin due to congenial condition such as Gilbert's syndrome. - Hepatitis panel and HIV are negative. Will check Hepatitis core total Ab and surface Ab for chronic hep B infection and previous immunization status - Results for SUDHA, anti-smooth muscle, liver kidney microsome Ab are pending. IgG, IgA, IgM are normal - Iron studies negative for hemochromatosis - portal vein normal on previous abd US. Will sign off. Please feel free to re-consult if necessary Case discussed with attending, Dr. Small
--- NOTE | 2017-03-12 14:07 | CP.PCM.PN ---
Subjective - Date & Time of Evaluation Date of Evaluation: 03/12/17 Time of Evaluation: 14:00 - Subjective Subjective: AWAKE, ALERT, ORIENTED X 3 INTERMITTENT LÓPEZ R UQ PAIN Objective - Vital Signs/Intake and Output Vital Signs (last 24 hours): Temp Pulse Resp BP Pulse Ox 98 F 61 18 96/38 L 98 03/12/17 09:02 03/12/17 12:42 03/12/17 12:30 03/12/17 12:30 03/12/17 12:30 Intake and Output: 03/12/17 03/12/17 06:59 18:59 Intake Total 3150 Output Total 2100 Balance 1050 - Medications Medications: Current Medications Benzocaine/Menthol (Cepacol Sore Throat) 1 thomas MT Q2H PRN PRN Reason: Sore Throat Enoxaparin Sodium (Lovenox) 40 mg SC DAILY [facility] PRN Reason: Protocol Last Admin: 03/12/17 09:09 Dose: 40 mg Sodium Chloride (Sodium Chloride 0.9%) 1,000 mls @ 200 mls/hr IV .Q5H [facility] Last Admin: 03/12/17 09:06 Dose: 200 mls/hr Ibuprofen (Motrin Tab) 600 mg PO Q6H PRN PRN Reason: Pain, moderate (4-7) Last Admin: 03/12/17 08:02 Dose: 600 mg Ondansetron HCl (Zofran Inj) 4 mg IVP Q6H PRN PRN Reason: Nausea/Vomiting Pantoprazole Sodium (Protonix Inj) 40 mg IVP DAILY [facility] Last Admin: 03/12/17 09:05 Dose: 40 mg - Labs Labs: 03/12/17 05:30 03/12/17 05:30 PT 12.6 Seconds (9.9-11.8) H 03/11/17 09:34 INR 1.17 (0.93-1.08) H 03/11/17 09:34 - Constitutional Appears: Non-toxic - Head Exam Head Exam: ATRAUMATIC, NORMAL INSPECTION, NORMOCEPHALIC - Eye Exam Eye Exam: EOMI, Normal appearance, PERRL Pupil Exam: PERRL - ENT Exam ENT Exam: Mucous Membranes Moist, Normal Exam - Neck Exam Neck Exam: Normal Inspection - Respiratory Exam Respiratory Exam: Clear to Ausculation Bilateral, NORMAL BREATHING PATTERN - Cardiovascular Exam Cardiovascular Exam: REGULAR RHYTHM, +S1, +S2 - GI/Abdominal Exam GI & Abdominal Exam: Soft, Tenderness (RUQ), Normal Bowel Sounds, Organomegaly - Extremities Exam Extremities Exam: Full ROM, Normal Inspection - Back Exam Back Exam: NORMAL INSPECTION - Neurological Exam Neurological Exam: Alert, Awake, Oriented x3 - Psychiatric Exam Psychiatric exam: Normal Affect - Skin Skin Exam: Dry, Normal Color, Warm Assessment and Plan - Assessment and Plan (Free Text) Plan: This is a 31Y AA M with PMH of anxiety and chronic abdominal pain admitted for symptomatic 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 Patient now has acute rhabdomylysis secondary to seizure and hyponatremia. Plan: Continue seizure precaution GI: Transaminitis increasing- can be secondary to elevated CK Abdominal U/S showed echogenicity of R kidney, but otherwise normal GI F/U Continue Regular diet Acute Rhabdomyolysis CK Trending down but still elevated No hypocalcemia or renal failure at this time Con't NS@200 Continue to monitor urine output ID: No leukocytosis, afebrile Blood cultures negative Endo: Continue to maintain euglycemia Psych: Psych consulted for history of anxiety D/w family at bedside, D/w nursing staff, D/w ICU resident >35 min spent in care cordination
[2017-03-12 17:15] LABS: BLOOD UREA NITROGEN 8 mg/dL (7-21); CALCIUM 8.7 mg/dL (8.4-10.5); GFR AFRICAN-AMERICAN > 60; GFR NON-AFRICAN AMERICAN > 60
[2017-03-12 18:24] LABS: URINE BILIRUBIN NEGATIVE (NEGATIVE); URINE BLOOD LARGE (NEGATIVE); URINE GLUCOSE (UA) NEGATIVE (NEGATIVE); URINE LEUKOCYTE ESTERASE NEGATIVE Leu/uL (NEGATIVE); URINE NITRATE NEGATIVE (NEGATIVE); URINE PROTEIN NEGATIVE mg/dL (<30 mg/dL); URINE UROBILINOGEN 0.2 E.U./dL (<1 E.U./dL)
[2017-03-12 18:33] LABS: URINE APPEARANCE CLEAR (CLEAR); URINE COLOR YELLOW (YELLOW)
[2017-03-12 18:35] LABS: URINE BACTERIA FEW (NEG); URINE RBC 20 - 25 /hpf (0-2); URINE WBC 0 - 2 /hpf (0-6)
[2017-03-13] MEDS: Pantoprazole 40 mg EC Tab PO SCH (06:46)
[2017-03-13 07:52] LABS: MEAN CELL VOLUME 85.6 fL (80.0-105.0); MEAN CORPUSCULAR HEMOGLOBIN 29.3 pg (25.0-35.0); MEAN CORPUSCULAR HGB CONC 34.2 g/dl (31.0-37.0); MEAN PLATELET VOLUME 8.9 fl (7.0-11.0); RBC 4.44 10^6/uL (3.5-6.1); RED CELL DISTRIBUTION WIDTH 12.9 % (11.5-14.5); WHITE BLOOD COUNT 6.4 10^3/ul (4.5-11.0)
[2017-03-13 07:53] LABS: INR 1.01 (0.93-1.08); PARTIAL THROMBOPLASTIN TIME 24.2 Seconds (23.7-30.8); PROTHROMBIN TIME 10.9 Seconds (9.9-11.8)
[2017-03-13 08:05] LABS: ALB/GLOB RATIO 1.1 (1.1-1.8); ALBUMIN 3.4 g/dL (3.0-4.8); ALT/SGPT 408 U/L (7-56); BLOOD UREA NITROGEN 6 mg/dL (7-21); CALCIUM 8.8 mg/dL (8.4-10.5); GFR AFRICAN-AMERICAN > 60; GFR NON-AFRICAN AMERICAN > 60
[2017-03-13 08:37] LABS: AST/SGOT 1213 U/L (15-59)
--- NOTE | 2017-03-13 09:45 | CP.PCM.PN ---
Subjective - Date & Time of Evaluation Date of Evaluation: 03/13/17 Time of Evaluation: 09:00 - Subjective Subjective: Subjective: Feels good, mild LÓPEZ C/o R shoulder pain neck pain Objective - Vital Signs/Intake and Output Vital Signs (last 24 hours): Temp Pulse Resp BP Pulse Ox 97.9 F 65 20 139/93 H 100 03/13/17 07:30 03/13/17 07:30 03/13/17 07:30 03/13/17 07:30 03/13/17 07:30 Intake and Output: 03/13/17 03/13/17 06:59 18:59 Intake Total 1420 Balance 1420 - Medications Medications: Current Medications Benzocaine/Menthol (Cepacol Sore Throat) 1 thomas MT Q2H PRN PRN Reason: Sore Throat Enoxaparin Sodium (Lovenox) 40 mg SC DAILY [facility] PRN Reason: Protocol Last Admin: 03/12/17 09:09 Dose: 40 mg Sodium Chloride (Sodium Chloride 0.9%) 1,000 mls @ 200 mls/hr IV .Q5H [facility] BY [facility] Last Admin: 03/12/17 09:06 Dose: 200 mls/hr Ibuprofen (Motrin Tab) 600 mg PO Q6H PRN PRN Reason: Pain, moderate (4-7) Last Admin: 03/12/17 23:28 Dose: 600 mg Ondansetron HCl (Zofran Inj) 4 mg IVP Q6H PRN PRN Reason: Nausea/Vomiting Pantoprazole Sodium (Protonix Ec Tab) 40 mg PO 0600 [facility] Last Admin: 03/13/17 06:46 Dose: 40 mg - Labs Labs: 03/13/17 06:55 03/13/17 06:55 PT 10.9 Seconds (9.9-11.8) 03/13/17 06:55 INR 1.01 (0.93-1.08) 03/13/17 06:55 APTT 24.2 Seconds (23.7-30.8) 03/13/17 06:55 - Constitutional Appears: Well, Non-toxic - Head Exam Head Exam: ATRAUMATIC, NORMAL INSPECTION, NORMOCEPHALIC - Eye Exam Eye Exam: Normal appearance - ENT Exam ENT Exam: Mucous Membranes Moist - Respiratory Exam Respiratory Exam: NORMAL BREATHING PATTERN - Cardiovascular Exam Cardiovascular Exam: REGULAR RHYTHM, +S1, +S2 - GI/Abdominal Exam GI & Abdominal Exam: Soft, Normal Bowel Sounds - Psychiatric Exam Psychiatric exam: Normal Affect - Skin Skin Exam: Normal Color, Warm Assessment and Plan - Assessment and Plan (Free Text) Assessment: Acute Rhabdomyolysis CK Trending down but still elevated No hypocalcemia or renal failure at this time Con't NS@200 Continue to monitor urine output Hypokalemia: replace K Check magnesium acute symptomatic Hyponatremia: resolved
[2017-03-13 09:53] LABS: MAGNESIUM 1.5 mg/dL (1.7-2.2)
[2017-03-13] MEDS: Enoxaparin 40 mg Syringe SC SCH (10:00)
[2017-03-13] MEDS ORDERED: Alum-Mag Hydrox-Simethicone Susp (30 mL) PO ONE (22:01)
[2017-03-13] MEDS ORDERED: Magnesium Oxide 400 mg Tab UD PO ONE (22:28)
--- NOTE | 2017-03-13 23:01 | CP.PCM.PN ---
Subjective - Date & Time of Evaluation Date of Evaluation: 03/13/17 Time of Evaluation: 10:00 - Subjective Subjective: 31 years old male with non signefecnt pmh , came with new onset seizures , rhabdomyalesis , amters hydronephrosis . seen by gi . neurology , gi , getting better , Objective - Vital Signs/Intake and Output Vital Signs (last 24 hours): Temp Pulse Resp BP Pulse Ox 98.5 F 72 18 143/89 97 03/13/17 16:27 03/13/17 16:27 03/13/17 16:27 03/13/17 16:27 03/13/17 16:27 Intake and Output: 03/13/17 03/13/17 06:59 18:59 Intake Total 1420 1200 Balance 1420 1200 - Medications Medications: Current Medications Benzocaine/Menthol (Cepacol Sore Throat) 1 thomas MT Q2H PRN PRN Reason: Sore Throat Enoxaparin Sodium (Lovenox) 40 mg SC DAILY [facility] PRN Reason: Protocol Last Admin: 03/13/17 10:00 Dose: 40 mg Sodium Chloride (Sodium Chloride 0.9%) 1,000 mls @ 200 mls/hr IV .Q5H [facility] Last Admin: 03/12/17 09:06 Dose: 200 mls/hr Ibuprofen (Motrin Tab) 600 mg PO Q6H PRN PRN Reason: Pain, moderate (4-7) Last Admin: 03/13/17 09:59 Dose: 600 mg Ondansetron HCl (Zofran Inj) 4 mg IVP Q6H PRN PRN Reason: Nausea/Vomiting Pantoprazole Sodium (Protonix Ec Tab) 40 mg PO 0600 [facility] Last Admin: 03/13/17 06:46 Dose: 40 mg - Labs Labs: 03/13/17 06:55 03/13/17 06:55 PT 10.9 Seconds (9.9-11.8) 03/13/17 06:55 INR 1.01 (0.93-1.08) 03/13/17 06:55 APTT 24.2 Seconds (23.7-30.8) 03/13/17 06:55 - Constitutional Appears: Well - Head Exam Head Exam: ATRAUMATIC, NORMAL INSPECTION, NORMOCEPHALIC - Eye Exam Eye Exam: EOMI, Normal appearance, PERRL Pupil Exam: NORMAL ACCOMODATION, PERRL - ENT Exam ENT Exam: Mucous Membranes Moist, Normal Exam - Neck Exam Neck Exam: Full ROM, Normal Inspection. absent: Lymphadenopathy - Respiratory Exam Respiratory Exam: Clear to Ausculation Bilateral, NORMAL BREATHING PATTERN - Cardiovascular Exam Cardiovascular Exam: REGULAR RHYTHM, +S1, +S2. absent: Murmur - GI/Abdominal Exam GI & Abdominal Exam: Bruit, Distended, Firm, Guarding, Rigid, Soft, Diminished Bowel Sounds, Hernia, Hyperactive Bowel Sounds, Hypoactive Bowel Sounds, Normal Bowel Sounds, Organomegaly, Pulsatile Mass, Rebound, Mass. absent: Tenderness - Rectal Exam Rectal Exam: Deferred - Extremities Exam Extremities Exam: Full ROM, Normal Capillary Refill, Normal Inspection. absent : Joint Swelling, Pedal Edema - Back Exam Back Exam: NORMAL INSPECTION - Neurological Exam Neurological Exam: Alert, Awake, CN II-XII Intact, Normal Gait, Oriented x3 - Psychiatric Exam Psychiatric exam: Normal Affect, Normal Mood - Skin Skin Exam: Dry, Intact, Normal Color, Warm Assessment and Plan - Assessment and Plan (Free Text) Assessment: 31 years old male with b/l hydronephrosis , electrolyte imbalance , new onset seizures , anxiety . abn. lft . . cat scane of abdomen reviewed . ch . abdominal pain getting i/v fluid . cpk trending down . oob pt ot
--- NOTE | 2017-03-13 23:06 | CP.PCM.PN ---
Subjective - Date & Time of Evaluation Date of Evaluation: 03/12/17 Time of Evaluation: 10:30 (am) - Subjective Subjective: 31 years old male with non significant pmh came with intertable abdominal pain , ams , new onset seizures , anxious , seen bu neuro cleared , pt is imprving slowly Objective - Vital Signs/Intake and Output Vital Signs (last 24 hours): Temp Pulse Resp BP Pulse Ox 98 F 75 20 138/88 95 03/12/17 16:00 03/12/17 16:00 03/12/17 16:00 03/12/17 16:00 03/12/17 16:00 Intake and Output: 03/12/17 03/13/17 18:59 06:59 Intake Total 2100 820 Output Total 1300 Balance 800 820 - Medications Medications: Current Medications Benzocaine/Menthol (Cepacol Sore Throat) 1 thomas MT Q2H PRN PRN Reason: Sore Throat Enoxaparin Sodium (Lovenox) 40 mg SC DAILY [facility] PRN Reason: Protocol Last Admin: 03/12/17 09:09 Dose: 40 mg Sodium Chloride (Sodium Chloride 0.9%) 1,000 mls @ 200 mls/hr IV .Q5H [facility] Last Admin: 03/12/17 09:06 Dose: 200 mls/hr Ibuprofen (Motrin Tab) 600 mg PO Q6H PRN PRN Reason: Pain, moderate (4-7) Last Admin: 03/12/17 08:02 Dose: 600 mg Ondansetron HCl (Zofran Inj) 4 mg IVP Q6H PRN PRN Reason: Nausea/Vomiting Pantoprazole Sodium (Protonix Inj) 40 mg IVP DAILY [facility] Last Admin: 03/12/17 09:05 Dose: 40 mg - Labs Labs: 03/12/17 05:30 03/12/17 16:54 PT 12.6 Seconds (9.9-11.8) H 03/11/17 09:34 INR 1.17 (0.93-1.08) H 03/11/17 09:34 - Constitutional Appears: Well - Head Exam Head Exam: ATRAUMATIC, NORMAL INSPECTION, NORMOCEPHALIC - Eye Exam Eye Exam: EOMI, Normal appearance, PERRL Pupil Exam: NORMAL ACCOMODATION, PERRL - ENT Exam ENT Exam: Mucous Membranes Moist, Normal Exam - Neck Exam Neck Exam: Full ROM, Normal Inspection. absent: Lymphadenopathy - Respiratory Exam Respiratory Exam: Clear to Ausculation Bilateral, NORMAL BREATHING PATTERN - Cardiovascular Exam Cardiovascular Exam: REGULAR RHYTHM, +S1, +S2. absent: Murmur - GI/Abdominal Exam GI & Abdominal Exam: Soft, Normal Bowel Sounds. absent: Tenderness - Rectal Exam Rectal Exam: NORMAL INSPECTION - Back Exam Back Exam: NORMAL INSPECTION - Neurological Exam Neurological Exam: Alert, Awake, CN II-XII Intact, Normal Gait, Oriented x3 - Psychiatric Exam Psychiatric exam: Normal Affect, Normal Mood - Skin Skin Exam: Dry, Intact, Normal Color, Warm Assessment and Plan - Assessment and Plan (Free Text) Assessment: 31 years old boy , wih non signefect past medickle surgery ,awake allert ,, getting tratment improving Plan: 31 yeares old male looking [place] . grnadparents ,
--- NOTE | 2017-03-13 23:08 | CP.PCM.PN ---
Subjective - Date & Time of Evaluation Date of Evaluation: 03/11/17 Time of Evaluation: 11:00 (am) - Subjective Subjective: 31 years old male came in [facility] with abdominal pain . abn, lft . seizures . rhabdomyalasis was admitted in icu . improving , transferd to floor . family was on the bed side , all questions answered Objective - Vital Signs/Intake and Output Vital Signs (last 24 hours): Temp Pulse Resp BP Pulse Ox 98 F 74 13 137/81 97 03/11/17 11:06 03/11/17 14:10 03/11/17 14:10 03/11/17 14:00 03/11/17 14:10 Intake and Output: 03/11/17 03/12/17 18:59 06:59 Intake Total 1550 Output Total 600 Balance 950 - Medications Medications: Current Medications Enoxaparin Sodium (Lovenox) 40 mg SC DAILY [facility] PRN Reason: Protocol Last Admin: 03/11/17 09:01 Dose: 40 mg Sodium Chloride (Sodium Chloride 0.9%) 1,000 mls @ 200 mls/hr IV .Q5H [facility] Last Admin: 03/11/17 12:00 Dose: 200 mls/hr Ibuprofen (Motrin Tab) 600 mg PO Q6H PRN PRN Reason: Pain, moderate (4-7) Last Admin: 03/11/17 15:46 Dose: 600 mg Ondansetron HCl (Zofran Inj) 4 mg IVP Q6H PRN PRN Reason: Nausea/Vomiting Pantoprazole Sodium (Protonix Inj) 40 mg IVP DAILY [facility] Last Admin: 03/11/17 09:01 Dose: 40 mg - Labs Labs: 03/11/17 05:30 03/11/17 16:37 PT 12.6 Seconds (9.9-11.8) H 03/11/17 09:34 INR 1.17 (0.93-1.08) H 03/11/17 09:34 - Constitutional Appears: Well - Head Exam Head Exam: ATRAUMATIC, NORMAL INSPECTION, NORMOCEPHALIC - Eye Exam Eye Exam: EOMI, Normal appearance, PERRL Pupil Exam: NORMAL ACCOMODATION, PERRL - ENT Exam ENT Exam: Mucous Membranes Moist, Normal Exam - Neck Exam Neck Exam: Full ROM, Normal Inspection. absent: Lymphadenopathy - Respiratory Exam Respiratory Exam: Clear to Ausculation Bilateral, NORMAL BREATHING PATTERN - Cardiovascular Exam Cardiovascular Exam: REGULAR RHYTHM, +S1, +S2. absent: Murmur - GI/Abdominal Exam GI & Abdominal Exam: Soft, Normal Bowel Sounds. absent: Tenderness - Back Exam Back Exam: NORMAL INSPECTION - Neurological Exam Neurological Exam: Alert, Awake, CN II-XII Intact, Normal Gait, Oriented x3 - Psychiatric Exam Psychiatric exam: Normal Affect, Normal Mood - Skin Skin Exam: Dry, Intact, Normal Color, Warm Assessment and Plan - Assessment and Plan (Free Text) Assessment: 31years old male with new onset seizures . ab. lfts . rhabdomyalasis . ch . abdominal pain. anxiety . b/l hydronephrosis with hydroureter , gi is on the case working on ab, lft , anemia , cont. pt ,ot repeat lab
[2017-03-14] MEDS: Pantoprazole 40 mg EC Tab PO SCH (05:59)
[2017-03-14] MEDS: Sodium Chloride 0.9% 1,000 ML IV SCH (06:00)
[2017-03-14 07:15] LABS: HEMOGLOBIN 14.5 gm/dL (14.0-18.0); MEAN CELL VOLUME 86.4 fL (80.0-105.0); MEAN CORPUSCULAR HEMOGLOBIN 29.8 pg (25.0-35.0); MEAN CORPUSCULAR HGB CONC 34.4 g/dl (31.0-37.0); MEAN PLATELET VOLUME 8.9 fl (7.0-11.0); RBC 4.87 10^6/uL (3.5-6.1); RED CELL DISTRIBUTION WIDTH 12.8 % (11.5-14.5); WHITE BLOOD COUNT 5.9 10^3/ul (4.5-11.0)
[2017-03-14 07:34] LABS: INR 1.01 (0.93-1.08); PARTIAL THROMBOPLASTIN TIME 25.5 Seconds (23.7-30.8); PROTHROMBIN TIME 10.9 Seconds (9.9-11.8)
[2017-03-14 07:49] LABS: ALB/GLOB RATIO 1.2 (1.1-1.8); ALBUMIN 4.2 g/dL (3.0-4.8); ALT/SGPT 486 U/L (7-56); BLOOD UREA NITROGEN 4 mg/dL (7-21); CALCIUM 9.4 mg/dL (8.4-10.5); GFR AFRICAN-AMERICAN > 60; GFR NON-AFRICAN AMERICAN > 60; MAGNESIUM 1.7 mg/dL (1.7-2.2)
[2017-03-14 07:57] LABS: AST/SGOT 1291 U/L (15-59)
[2017-03-14] MEDS: Magnesium Oxide 400 mg Tab UD PO SCH (09:07)
[2017-03-14] MEDS: Enoxaparin 40 mg Syringe SC SCH (09:08)
--- NOTE | 2017-03-14 23:47 | CP.PCM.PN ---
Subjective - Date & Time of Evaluation Date of Evaluation: 03/14/17 Time of Evaluation: 12:10 - Subjective Subjective: 31 years old male seen and examined at bed side , looking comfortable. seen by psych. and gi . lft are getting better . getting pt . no new complaints , as per pt problem with sleep Objective - Vital Signs/Intake and Output Vital Signs (last 24 hours): Temp Pulse Resp BP Pulse Ox 98.4 F 68 20 143/92 H 97 03/14/17 07:33 03/14/17 07:33 03/14/17 07:33 03/14/17 07:33 03/14/17 07:33 Intake and Output: 03/14/17 03/15/17 18:59 06:59 Intake Total 960 640 Balance 960 640 - Medications Medications: Current Medications Benzocaine/Menthol (Cepacol Sore Throat) 1 thomas MT Q2H PRN PRN Reason: Sore Throat Enoxaparin Sodium (Lovenox) 40 mg SC DAILY [facility] PRN Reason: Protocol Last Admin: 03/14/17 09:08 Dose: 40 mg Sodium Chloride (Sodium Chloride 0.9%) 1,000 mls @ 200 mls/hr IV .Q5H [facility] Last Admin: 03/14/17 06:00 Dose: 200 mls/hr Ibuprofen (Motrin Tab) 600 mg PO Q6H PRN PRN Reason: Pain, moderate (4-7) Last Admin: 03/13/17 09:59 Dose: 600 mg Magnesium Oxide (Mag-Ox) 400 mg PO TID [facility] Last Admin: 03/14/17 09:07 Dose: 400 mg Ondansetron HCl (Zofran Inj) 4 mg IVP Q6H PRN PRN Reason: Nausea/Vomiting Pantoprazole Sodium (Protonix Ec Tab) 40 mg PO 0600 [facility] Last Admin: 03/14/17 05:59 Dose: 40 mg - Labs Labs: 03/14/17 06:30 03/14/17 06:30 PT 10.9 Seconds (9.9-11.8) 03/14/17 06:30 INR 1.01 (0.93-1.08) 03/14/17 06:30 APTT 25.5 Seconds (23.7-30.8) 03/14/17 06:30 - Constitutional Appears: Well - Head Exam Head Exam: ATRAUMATIC, NORMAL INSPECTION, NORMOCEPHALIC - Eye Exam Eye Exam: EOMI, Normal appearance, PERRL Pupil Exam: NORMAL ACCOMODATION, PERRL - ENT Exam ENT Exam: Mucous Membranes Moist, Normal Exam - Neck Exam Neck Exam: Full ROM, Normal Inspection. absent: Lymphadenopathy - Respiratory Exam Respiratory Exam: Clear to Ausculation Bilateral, NORMAL BREATHING PATTERN - Cardiovascular Exam Cardiovascular Exam: REGULAR RHYTHM, +S1, +S2 - GI/Abdominal Exam GI & Abdominal Exam: Soft, Normal Bowel Sounds. absent: Tenderness - Extremities Exam Extremities Exam: Full ROM, Normal Capillary Refill, Normal Inspection. absent : Joint Swelling, Pedal Edema - Back Exam Back Exam: NORMAL INSPECTION - Neurological Exam Neurological Exam: Alert, Awake, CN II-XII Intact, Normal Gait, Oriented x3 - Psychiatric Exam Psychiatric exam: Normal Affect, Normal Mood - Skin Skin Exam: Dry, Intact, Normal Color, Warm Assessment and Plan (1) Acute hyperkalemia Status: Acute (2) Acute hyponatremia Status: Acute (3) Hypomagnesemia Status: Acute (4) New onset seizure Status: Acute (5) Abdominal discomfort Status: Acute (6) Chest discomfort Status: Acute (7) Chest pain Status: Acute (8) Headache Status: Acute - Assessment and Plan (Free Text) Assessment: h/o ch . abdominal pain . gi is on the case .lfts trending down , r/o ta , r/o Gilbert syndrome as per gi , anxiety .cont.ppi gi is on the case . monitering lfts . repeat lab . rhabdomyalasis is improving , gi dvt prophylaxis
[2017-03-15 07:40] LABS: BLOOD UREA NITROGEN 4 mg/dL (7-21); CALCIUM 9.5 mg/dL (8.4-10.5); GFR AFRICAN-AMERICAN > 60; GFR NON-AFRICAN AMERICAN > 60
[2017-03-15 07:48] LABS: HEMOGLOBIN 13.8 gm/dL (14.0-18.0); MEAN CELL VOLUME 86.2 fL (80.0-105.0); MEAN CORPUSCULAR HEMOGLOBIN 29.3 pg (25.0-35.0); MEAN PLATELET VOLUME 8.8 fl (7.0-11.0); RBC 4.71 10^6/uL (3.5-6.1); RED CELL DISTRIBUTION WIDTH 12.7 % (11.5-14.5); WHITE BLOOD COUNT 6.1 10^3/ul (4.5-11.0)
[2017-03-15 07:55] LABS: INR 1.02 (0.93-1.08); PARTIAL THROMBOPLASTIN TIME 25.7 Seconds (23.7-30.8)
[2017-03-15] MEDS: Sodium Chloride 0.9% 1,000 ML IV SCH (08:23)
[2017-03-15] MEDS ORDERED: Sodium Chloride 0.9% 1,000 ML IV SCH (08:45)
[2017-03-15] MEDS: Enoxaparin 40 mg Syringe SC SCH ×2 (10:00→10:10)
[2017-03-15] MEDS: Magnesium Oxide 400 mg Tab UD PO SCH ×3 (10:00→17:11)
[2017-03-15 10:09] LABS: MAGNESIUM 1.6 mg/dL (1.7-2.2)
[2017-03-15] MEDS ORDERED: Alum-Mag Hydrox-Simethicone Susp (30 mL) PO PRN (11:06)
[2017-03-15 12:34] LABS: CK-MB 1.03 NG/ML (0.0-3.6)
--- NOTE | 2017-03-15 13:20 | CP.PCM.PN ---
Subjective - Date & Time of Evaluation Date of Evaluation: 03/15/17 Time of Evaluation: 12:15 - Subjective Subjective: Sitting in chair C/o upper abdominal pain, c/o dizziness when he eats, palpitations, LÓPEZ, high BP K low Denies muscle pain Objective - Vital Signs/Intake and Output Vital Signs (last 24 hours): Temp Pulse Resp BP Pulse Ox 98.1 F 73 18 163/104 H 99 03/15/17 10:58 03/15/17 10:58 03/15/17 10:58 03/15/17 10:58 03/15/17 10:58 Intake and Output: 03/15/17 03/15/17 06:59 18:59 Intake Total 1120 Balance 1120 - Medications Medications: Current Medications Acetaminophen (Tylenol 325mg Tab) 650 mg PO Q4H PRN PRN Reason: Pain, Mild (1-3) Last Admin: 03/15/17 02:53 Dose: 650 mg Al Hydrox/Mg Hydrox/Simethicone (Maalox Plus 30 Ml) 30 ml PO DAILY PRN PRN Reason: Indigestion / Heartburn Benzocaine/Menthol (Cepacol Sore Throat) 1 thomas MT Q2H PRN PRN Reason: Sore Throat Enoxaparin Sodium (Lovenox) 40 mg SC DAILY [facility] PRN Reason: Protocol Last Admin: 03/15/17 10:10 Dose: Not Given Potassium Chloride (Potassium Chloride 20 Meq/100 Ml) 20 meq in 100 mls @ 50 mls/hr IV Q2H [facility] Stop: 03/15/17 13:59 Last Admin: 03/15/17 13:03 Dose: 50 mls/hr Magnesium Oxide (Mag-Ox) 400 mg PO TID [facility] Last Admin: 03/15/17 13:03 Dose: 400 mg Ondansetron HCl (Zofran Inj) 4 mg IVP Q6H PRN PRN Reason: Nausea/Vomiting Pantoprazole Sodium (Protonix Ec Tab) 40 mg PO 0600 [facility] Last Admin: 03/14/17 05:59 Dose: 40 mg - Labs Labs: 03/15/17 07:00 03/15/17 07:00 PT 11.0 Seconds (9.9-11.8) 03/15/17 07:00 INR 1.02 (0.93-1.08) 03/15/17 07:00 APTT 25.7 Seconds (23.7-30.8) 03/15/17 07:00 - Constitutional Appears: Non-toxic - Head Exam Head Exam: ATRAUMATIC, NORMAL INSPECTION, NORMOCEPHALIC - Eye Exam Eye Exam: Normal appearance - ENT Exam ENT Exam: Mucous Membranes Moist - Respiratory Exam Respiratory Exam: Clear to Ausculation Bilateral, NORMAL BREATHING PATTERN - Cardiovascular Exam Cardiovascular Exam: REGULAR RHYTHM, +S1, +S2 - GI/Abdominal Exam GI & Abdominal Exam: Soft, Tenderness, Normal Bowel Sounds - Extremities Exam Extremities Exam: Full ROM, Normal Inspection Assessment and Plan - Assessment and Plan (Free Text) Assessment: Plan: This is a 31Y AA M with PMH of anxiety and chronic abdominal pain admitted for symptomatic 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 Patient now has acute rhabdomylysis secondary to seizure and hyponatremia. Plan GI: Transaminitis - can be secondary to elevated CK Abdominal U/S showed echogenicity of R kidney, but otherwise normal GI F/U, c/o dizziness on eating, elevated BP, ??? Carcinoid Continue Regular diet Acute Rhabdomyolysis CK Trending down but still elevated No hypocalcemia or renal failure at this time Con't NS@200 Continue to monitor urine output Hypokalemia/alkalosis/HTN: ?? hyperaldosteronism Check plasma aldosterone, renin Check plasma metanephrines HTN: partailly 2/2 NS infusion Start amlodipine 5mg/day Change IVF to 100cc/hour
--- NOTE | 2017-03-15 21:57 | CP.PCM.PN ---
Subjective - Date & Time of Evaluation Date of Evaluation: 03/15/17 Time of Evaluation: 10:00 - Subjective Subjective: pt is seen and examined on the bed side . c/o arora / abdominal pain ,hypertension , anxious . xanax one dose given , dr [place] is on the case . lfts trending down . oob . Objective - Vital Signs/Intake and Output Vital Signs (last 24 hours): Temp Pulse Resp BP Pulse Ox 97.8 F 67 20 161/106 H 98 03/15/17 16:10 03/15/17 16:10 03/15/17 16:10 03/15/17 16:10 03/15/17 16:10 Intake and Output: 03/15/17 03/16/17 18:59 06:59 Intake Total 620 Balance 620 - Medications Medications: Current Medications Acetaminophen (Tylenol 325mg Tab) 650 mg PO Q4H PRN PRN Reason: Pain, Mild (1-3) Last Admin: 03/15/17 02:53 Dose: 650 mg Al Hydrox/Mg Hydrox/Simethicone (Maalox Plus 30 Ml) 30 ml PO DAILY PRN PRN Reason: Indigestion / Heartburn Alprazolam (Xanax) 0.25 mg PO ONCE ONE PRN Reason: Protocol Stop: 03/15/17 22:01 Amlodipine Besylate (Norvasc) 5 mg PO DAILY [facility] Last Admin: 03/15/17 14:30 Dose: 5 mg Benzocaine/Menthol (Cepacol Sore Throat) 1 thomas MT Q2H PRN PRN Reason: Sore Throat Enoxaparin Sodium (Lovenox) 40 mg SC DAILY [facility] PRN Reason: Protocol Last Admin: 03/15/17 10:10 Dose: Not Given Magnesium Oxide (Mag-Ox) 400 mg PO TID [facility] Last Admin: 03/15/17 17:11 Dose: 400 mg Ondansetron HCl (Zofran Inj) 4 mg IVP Q6H PRN PRN Reason: Nausea/Vomiting Pantoprazole Sodium (Protonix Ec Tab) 40 mg PO 0600 [facility] Last Admin: 03/14/17 05:59 Dose: 40 mg - Labs Labs: 03/15/17 07:00 03/15/17 07:00 PT 11.0 Seconds (9.9-11.8) 03/15/17 07:00 INR 1.02 (0.93-1.08) 03/15/17 07:00 APTT 25.7 Seconds (23.7-30.8) 03/15/17 07:00 - Constitutional Appears: Well - Head Exam Head Exam: ATRAUMATIC, NORMAL INSPECTION, NORMOCEPHALIC - Eye Exam Eye Exam: EOMI, Normal appearance, PERRL Pupil Exam: NORMAL ACCOMODATION, PERRL - ENT Exam ENT Exam: Mucous Membranes Moist, Normal Exam - Neck Exam Neck Exam: Full ROM, Normal Inspection. absent: Lymphadenopathy - Respiratory Exam Respiratory Exam: Clear to Ausculation Bilateral, NORMAL BREATHING PATTERN - Cardiovascular Exam Cardiovascular Exam: REGULAR RHYTHM, +S1, +S2. absent: Murmur - GI/Abdominal Exam GI & Abdominal Exam: Soft, Normal Bowel Sounds. absent: Tenderness - Extremities Exam Extremities Exam: Full ROM, Normal Capillary Refill, Normal Inspection. absent : Joint Swelling, Pedal Edema - Back Exam Back Exam: NORMAL INSPECTION - Neurological Exam Neurological Exam: Alert, Awake, CN II-XII Intact, Normal Gait, Oriented x3 - Psychiatric Exam Psychiatric exam: Normal Affect, Normal Mood - Skin Skin Exam: Dry, Intact, Normal Color, Warm Assessment and Plan (1) Acute hyperkalemia Status: Acute (2) Acute hyponatremia Status: Acute (3) Hypomagnesemia Status: Acute (4) New onset seizure Status: Acute (5) Abdominal discomfort Status: Acute (6) Chest discomfort Assessment & Plan: 31 years old male with non signefecent pmh ,had arora , abdominal pain ab.lft is improving very slowly . cont. present treatment , gi . dvt prophy. Status: Acute (7) Chest pain Status: Acute (8) Headache Status: Acute
--- NOTE | 2017-03-15 23:01 | CP.PCM.CON ---
History of Present Illness - History of Present Illness History of Present Illness: The patient is a 31 year old AAM with a reported history of chronic abdominal pain and anxiety who presented to the [facility] ED 2 days ago for worsening diffuse abdominal pain, palpitations and restlessness. Of note, due to the patient's altered mentation, details of the history were obtained solely from ED notes. A CT-A/P was done and found to be normal and therefore, the patient was discharged home from [facility] ED 2 days ago. Of note, he had a previously scheduled appointment for an outpatient colonoscopy to be done today , as part of work-up for his chronic abdominal pain. However, because his symptoms persisted after returning home from the [facility] ED, he decided to present to the [facility] last night. He also reportedly has been feeling very dehydrated over the past 24hours and therefore drank large volumes of water ( per ED report). While in the [facility] ED last night, he was noted to have a brief tonic-clonic seizure which resolved with IV Ativan given by the ED. However, since the seizure, he has become markedly altered, to the extent that he is no longer able to follow any commands. Also, ED labs showed numerous abnormalities including, an elevated lactic acid (9.8), hyponatremia (Kn=959) and metabolic acidosis (serum bicarb=17). Consequently, he was given a 100cc IV Bolus of 3% saline by the ED physician around 12:45am this morning. since admission seen by multiple subspecialties eelectrolytes are fix, now fully awake and and alert, with non specific abdominal pain, snoring, Review of Systems - Constitutional Constitutional: Fatigue, Malaise - EENT Eyes: absent: Diplopia, Discharge, Pain Ears: absent: Ear Discharge, Ear Pain Nose/Mouth/Throat: absent: Epistaxis, Nasal Congestion, Nasal Discharge - Cardiovascular Cardiovascular: absent: Chest Pain, Claudication, Diaphoresis, Dyspnea - Respiratory Respiratory: absent: Cough, Dyspnea, Hemoptysis - Gastrointestinal Gastrointestinal: Abdominal Pain - Genitourinary Genitourinary: absent: Difficulty Urinating, Dysuria, Flank Pain - Musculoskeletal Musculoskeletal: absent: Arthralgias, Atrophy, Back Pain - Neurological Neurological: absent: Abnormal Movements, Behavioral Changes, Burning Sensations - Psychiatric Psychiatric: Anxiety Past Patient History - Infectious Disease Hx of Infectious Diseases: None - Tetanus Immunizations Tetanus Immunization: Unknown - Past Social History Smoking Status: Never Smoked Chewing Tobacco Use: No Cigar Use: No Alcohol: Occasional Drugs: Denies - CARDIAC Hx Cardiac Disorders: No - PULMONARY Hx Asthma: Yes - NEUROLOGICAL Hx Neurological Disorder: No - HEENT Hx HEENT Problems: No - RENAL Hx Chronic Kidney Disease: No - ENDOCRINE/METABOLIC Hx Endocrine Disorders: No - HEMATOLOGICAL/ONCOLOGICAL Hx Blood Disorders: No - INTEGUMENTARY Hx Dermatological Problems: No - MUSCULOSKELETAL/RHEUMATOLOGICAL Hx Musculoskeletal Disorders: No - GASTROINTESTINAL Hx Gastroesophageal Reflux: Yes - GENITOURINARY/GYNECOLOGICAL Hx Genitourinary Disorders: No - PSYCHIATRIC Hx Depression: No Hx Substance Use: No - SURGICAL HISTORY Hx Surgeries: No - ANESTHESIA Hx Anesthesia: No Meds Allergies/Adverse Reactions: Allergies Allergy/AdvReac Type Severity Reaction Status Date / Time No Known Allergies Allergy Verified 03/08/17 09:33 - Medications Medications: Current Medications Acetaminophen (Tylenol 325mg Tab) 650 mg PO Q4H PRN PRN Reason: Pain, Mild (1-3) Last Admin: 03/15/17 02:53 Dose: 650 mg Al Hydrox/Mg Hydrox/Simethicone (Maalox Plus 30 Ml) 30 ml PO DAILY PRN PRN Reason: Indigestion / Heartburn Amlodipine Besylate (Norvasc) 5 mg PO DAILY [facility] Last Admin: 03/15/17 14:30 Dose: 5 mg Benzocaine/Menthol (Cepacol Sore Throat) 1 thomas MT Q2H PRN PRN Reason: Sore Throat Enoxaparin Sodium (Lovenox) 40 mg SC DAILY [facility] PRN Reason: Protocol Last Admin: 03/15/17 10:10 Dose: Not Given Magnesium Oxide (Mag-Ox) 400 mg PO TID [facility] Last Admin: 03/15/17 17:11 Dose: 400 mg Ondansetron HCl (Zofran Inj) 4 mg IVP Q6H PRN PRN Reason: Nausea/Vomiting Pantoprazole Sodium (Protonix Ec Tab) 40 mg PO 0600 [facility] Last Admin: 03/14/17 05:59 Dose: 40 mg Physical Exam - Constitutional Appears: No Acute Distress - Head Exam Head Exam: ATRAUMATIC, NORMAL INSPECTION, NORMOCEPHALIC - Neck Exam Neck exam: Positive for: Normal Inspection - Respiratory Exam Respiratory Exam: Clear to Auscultation Bilateral, NORMAL BREATHING PATTERN - Cardiovascular Exam Cardiovascular Exam: REGULAR RHYTHM - GI/Abdominal Exam GI & Abdominal Exam: Normal Bowel Sounds, Soft. absent: Tenderness - Neurological Exam Neurological exam: Alert, CN II-XII Intact, Normal Gait, Oriented x3, Reflexes Normal Results - Vital Signs Recent Vital Signs: Last Vital Signs Temp 97.8 F 03/15/17 16:10 Pulse 67 03/15/17 16:10 Resp 20 03/15/17 16:10 BP 161/106 H 03/15/17 16:10 Pulse Ox 98 03/15/17 16:10 - Labs Result Diagrams: 03/15/17 07:00 03/15/17 07:00 Labs: Laboratory Results - last 24 hr 03/15/17 03/15/17 03/15/17 07:00 07:00 07:00 WBC 6.1 RBC 4.71 Hgb 13.8 L Hct 40.6 L MCV 86.2 MCH 29.3 MCHC 34.0 RDW 12.7 Plt Count 268 MPV 8.8 PT 11.0 INR 1.02 APTT 25.7 Sodium 138 Potassium 3.1 L Chloride 99 Carbon Dioxide 30 Anion Gap 12 BUN 4 L Creatinine 0.7 Est GFR ( Amer) > 60 Est GFR (Non-Af Amer) > 60 Random Glucose 96 Calcium 9.5 Magnesium Total Creatine Kinase CK-MB (CK-2) CK-MB (CK-2) % Triglycerides Cholesterol LDL Cholesterol Direct HDL Cholesterol 03/15/17 09:50 WBC RBC Hgb Hct MCV MCH MCHC RDW Plt Count MPV PT INR APTT Sodium Potassium Chloride Carbon Dioxide Anion Gap BUN Creatinine Est GFR ( Amer) Est GFR (Non-Af Amer) Random Glucose Calcium Magnesium 1.6 L Total Creatine Kinase 21844 H CK-MB (CK-2) 1.03 CK-MB (CK-2) % Cancelled Triglycerides 48 Cholesterol 166 LDL Cholesterol Direct 101 HDL Cholesterol 55 - Imaging and Cardiology MRI - head Status: Report reviewed by me CT scan - head Status: Report reviewed by me Assessment & Plan (1) ARABELLA (obstructive sleep apnea) Assessment and Plan: sleep apnea precaution, sleep study as pot patient Status: Acute (2) Anxiety Assessment and Plan: psychiatry follow up Status: Acute (3) Acute hyponatremia Assessment and Plan: corrected, but what was the cause? Status: Acute (4) Hypomagnesemia Assessment and Plan: corrected Status: Acute (5) New onset seizure Assessment and Plan: episode in ER, ? seen by neurology Status: Acute (6) Abdominal discomfort Assessment and Plan: gi follow up Status: Acute
[2017-03-16] MEDS: Pantoprazole 40 mg EC Tab PO SCH (06:54)
--- NOTE | 2017-03-16 08:59 | CP.PCM.PN ---
Subjective - Date & Time of Evaluation Date of Evaluation: 03/16/17 Time of Evaluation: 08:55 - Subjective Subjective: Pt seen and examined bedside No new complaints Still has vague RUQ and RLQ pain State the pain peaks around 4-5 out of 10 on occasions, cannot recall and aggravating or alleviating factor. But at this moment is a 1/10. Pt pain has not changed in quality, chronic, same as outpt Able to tolerate regular diet Denies nay N/V/D 12-point review of systems was conducted by myself, but other than what was previously mentioned is otherwise Negative. Objective - Vital Signs/Intake and Output Vital Signs (last 24 hours): Temp Pulse Resp BP Pulse Ox 97.8 F 67 20 161/106 H 98 03/15/17 16:10 03/15/17 16:10 03/15/17 16:10 03/15/17 16:10 03/15/17 16:10 Intake and Output: 03/16/17 03/16/17 06:59 18:59 Intake Total 1020 Balance 1020 - Medications Medications: Current Medications Acetaminophen (Tylenol 325mg Tab) 650 mg PO Q4H PRN PRN Reason: Pain, Mild (1-3) Last Admin: 03/15/17 02:53 Dose: 650 mg Al Hydrox/Mg Hydrox/Simethicone (Maalox Plus 30 Ml) 30 ml PO DAILY PRN PRN Reason: Indigestion / Heartburn Last Admin: 03/16/17 06:54 Dose: 30 ml Amlodipine Besylate (Norvasc) 5 mg PO DAILY [facility] Last Admin: 03/15/17 14:30 Dose: 5 mg Benzocaine/Menthol (Cepacol Sore Throat) 1 thomas MT Q2H PRN PRN Reason: Sore Throat Enoxaparin Sodium (Lovenox) 40 mg SC DAILY [facility] PRN Reason: Protocol Last Admin: 03/15/17 10:10 Dose: Not Given Magnesium Oxide (Mag-Ox) 400 mg PO TID [facility] Last Admin: 03/15/17 17:11 Dose: 400 mg Ondansetron HCl (Zofran Inj) 4 mg IVP Q6H PRN PRN Reason: Nausea/Vomiting Pantoprazole Sodium (Protonix Ec Tab) 40 mg PO 0600 [facility] Last Admin: 03/16/17 06:54 Dose: 40 mg - Labs Labs: 03/15/17 07:00 03/15/17 07:00 PT 11.0 Seconds (9.9-11.8) 03/15/17 07:00 INR 1.02 (0.93-1.08) 03/15/17 07:00 APTT 25.7 Seconds (23.7-30.8) 03/15/17 07:00 Lab Studies 03/15/17 Range/Units 09:50 Magnesium 1.6 L (1.7-2.2) mg/dL Total Creatine Kinase 10773 H (35-230) U/L CK-MB (CK-2) 1.03 (0.0-3.6) NG/ML CK-MB (CK-2) % Cancelled Triglycerides 48 (35-160) mg/dL Cholesterol 166 (130-200) mg/dL LDL Cholesterol Direct 101 (0-129) mg/dL HDL Cholesterol 55 (29-60) mg/dL - Constitutional Appears: Well, Non-toxic, No Acute Distress - Head Exam Head Exam: ATRAUMATIC, NORMOCEPHALIC - Eye Exam Eye Exam: EOMI, Normal appearance Pupil Exam: NORMAL ACCOMODATION, PERRL - ENT Exam ENT Exam: Mucous Membranes Moist, Normal Exam - Neck Exam Neck Exam: Normal Inspection - Respiratory Exam Respiratory Exam: Clear to Ausculation Bilateral, NORMAL BREATHING PATTERN - Cardiovascular Exam Cardiovascular Exam: REGULAR RHYTHM - GI/Abdominal Exam GI & Abdominal Exam: Soft, Normal Bowel Sounds. absent: Distended, Rigid, Tenderness, Organomegaly - Rectal Exam Rectal Exam: NORMAL INSPECTION - Neurological Exam Neurological Exam: Alert, Awake, CN II-XII Intact, Normal Gait - Psychiatric Exam Psychiatric exam: Agitated, Anxious Assessment and Plan - Assessment and Plan (Free Text) Assessment: This pt is a 31M w/hx of chronic abd pain and anxiety who presented to the ED with new onset seizure 2/2 to acute hyponatremia due to psychogenic polydipsia. Subsequently, pt developed rhabdomyolysis due to new onset seizure, but CK is trending down. Concurrent, Transaminitis is most likely 2/2 rhabo and has yet to peak. Imaging including U/S and Abd CT did not revel and acute pathology; gallbadder, liver, pancreas WNL. EGD was performed last year and according to pt , no acute pathology found. Pt is being actively treated with rhadomyolysis, though IV fluids were discontinued today. 1. Transaminitis raminley 2/2 Rhabdomyolysis -will likely likely peak in the next few days then trend down -Last AST/ALT 1291/486 on 03/14/17, continue to trend -CK Level: tending down 34539 -IgG, SUDHA, AMA, SM, and liver/Kidney all WNL: autoimmune unlikely -Acute Hepatitis Panel neg -Liver imaging reviewed: U/S and CT abd/pelv WNL; no acute findings -Recommend continuing IV fluids 2. Acute on chronic abd pain -DDx: IBS/Functional bowel disorder, constipation, GERD, dyspepsia, r/o luminal pathology -Recommend colonoscopy as outpt -continue PPI -ok with Maalox PRN for dyspepsia 3. Non-immune Hep B -Recommend Hep B vaccination as oupt to ensure completion of series Will Discuss case with Dr. Small
[2017-03-16] MEDS: Enoxaparin 40 mg Syringe SC SCH (09:44)
[2017-03-16] MEDS: Magnesium Oxide 400 mg Tab UD PO SCH ×3 (09:45→18:49)
[2017-03-16 12:07] LABS: HEMOGLOBIN 15.5 gm/dL (14.0-18.0); MEAN CELL VOLUME 86.9 fL (80.0-105.0); MEAN CORPUSCULAR HEMOGLOBIN 30.2 pg (25.0-35.0); MEAN CORPUSCULAR HGB CONC 34.8 g/dl (31.0-37.0); MEAN PLATELET VOLUME 9.1 fl (7.0-11.0); RBC 5.13 10^6/uL (3.5-6.1); WHITE BLOOD COUNT 6.6 10^3/ul (4.5-11.0)
[2017-03-16 12:15] LABS: ALB/GLOB RATIO 1.1 (1.1-1.8); ALBUMIN 4.4 g/dL (3.0-4.8); ALT/SGPT 423 U/L (7-56); AST/SGOT 472 U/L (15-59); BLOOD UREA NITROGEN 6 mg/dL (7-21); CALCIUM 10.4 mg/dL (8.4-10.5); GFR AFRICAN-AMERICAN > 60; GFR NON-AFRICAN AMERICAN > 60
[2017-03-16] MEDS ORDERED: Metoprolol 1 mg/ml Inj IVP ONE (14:04)
--- NOTE | 2017-03-16 15:18 | CP.PCM.PN ---
Subjective - Date & Time of Evaluation Date of Evaluation: 03/16/17 Time of Evaluation: 14:45 - Subjective Subjective: Patient's EkG was presented to me for interpretation. It shows Sinus tachycardia @106/min with non specific ST-T changes. Ekg shown to Dr Neil. Objective - Vital Signs/Intake and Output Vital Signs (last 24 hours): Temp Pulse Resp BP Pulse Ox 98.1 F 90 20 151/101 H 100 03/16/17 07:30 03/16/17 10:51 03/16/17 07:30 03/16/17 10:51 03/16/17 07:30 Intake and Output: 03/16/17 03/16/17 06:59 18:59 Intake Total 1020 540 Balance 1020 540 - Medications Medications: Current Medications Acetaminophen (Tylenol 325mg Tab) 650 mg PO Q4H PRN PRN Reason: Pain, Mild (1-3) Last Admin: 03/15/17 02:53 Dose: 650 mg Al Hydrox/Mg Hydrox/Simethicone (Maalox Plus 30 Ml) 30 ml PO DAILY PRN PRN Reason: Indigestion / Heartburn Last Admin: 03/16/17 06:54 Dose: 30 ml Amlodipine Besylate (Norvasc) 5 mg PO DAILY [facility] Last Admin: 03/16/17 10:51 Dose: 5 mg Benzocaine/Menthol (Cepacol Sore Throat) 1 thomas MT Q2H PRN PRN Reason: Sore Throat Clonazepam (Klonopin) 0.5 mg PO HS [facility] PRN Reason: Protocol Enoxaparin Sodium (Lovenox) 40 mg SC DAILY [facility] PRN Reason: Protocol Last Admin: 03/16/17 09:44 Dose: Not Given Magnesium Oxide (Mag-Ox) 400 mg PO TID [facility] Last Admin: 03/16/17 13:16 Dose: 400 mg Ondansetron HCl (Zofran Inj) 4 mg IVP Q6H PRN PRN Reason: Nausea/Vomiting Pantoprazole Sodium (Protonix Ec Tab) 40 mg PO 0600 [facility] Last Admin: 03/16/17 06:54 Dose: 40 mg Sertraline HCl (Zoloft) 50 mg PO DAILY [facility] Last Admin: 03/16/17 12:40 Dose: Not Given Zolpidem Tartrate (Ambien) 5 mg PO HS PRN; Protocol PRN Reason: Insomnia - Labs Labs: 03/16/17 11:58 03/16/17 11:58 PT 11.0 Seconds (9.9-11.8) 03/15/17 07:00 INR 1.02 (0.93-1.08) 03/15/17 07:00 APTT 25.7 Seconds (23.7-30.8) 03/15/17 07:00
--- NOTE | 2017-03-16 15:26 | CP.PCM.PN ---
Subjective - Date & Time of Evaluation Date of Evaluation: 03/16/17 Time of Evaluation: 14:15 - Subjective Subjective: Subjective: sitting in chair, very anxious, agitated, reports that he's having a stroke. Complains of numbness in his left hand, left side of face, left side of neck His heartrate was 150 as per the nurse earlier in the day Blood pressure was 150/100. Patient was seen by psych. Objective - Vital Signs/Intake and Output Vital Signs (last 24 hours): Temp Pulse Resp BP Pulse Ox 98.1 F 90 20 151/101 H 100 03/16/17 07:30 03/16/17 10:51 03/16/17 07:30 03/16/17 10:51 03/16/17 07:30 Intake and Output: 03/16/17 03/16/17 06:59 18:59 Intake Total 1020 540 Balance 1020 540 - Medications Medications: Current Medications Acetaminophen (Tylenol 325mg Tab) 650 mg PO Q4H PRN PRN Reason: Pain, Mild (1-3) Last Admin: 03/15/17 02:53 Dose: 650 mg Al Hydrox/Mg Hydrox/Simethicone (Maalox Plus 30 Ml) 30 ml PO DAILY PRN PRN Reason: Indigestion / Heartburn Last Admin: 03/16/17 06:54 Dose: 30 ml Amlodipine Besylate (Norvasc) 5 mg PO DAILY [facility] Last Admin: 03/16/17 10:51 Dose: 5 mg Benzocaine/Menthol (Cepacol Sore Throat) 1 thomas MT Q2H PRN PRN Reason: Sore Throat Clonazepam (Klonopin) 0.5 mg PO [facility] PRN Reason: Protocol Clonazepam (Klonopin) 0.5 mg PO ONCE ONE PRN Reason: Protocol Stop: 03/16/17 15:18 Enoxaparin Sodium (Lovenox) 40 mg SC DAILY [facility] PRN Reason: Protocol Last Admin: 03/16/17 09:44 Dose: Not Given Magnesium Oxide (Mag-Ox) 400 mg PO TID [facility] Last Admin: 03/16/17 13:16 Dose: 400 mg Ondansetron HCl (Zofran Inj) 4 mg IVP Q6H PRN PRN Reason: Nausea/Vomiting Pantoprazole Sodium (Protonix Ec Tab) 40 mg PO 0600 [facility] Last Admin: 03/16/17 06:54 Dose: 40 mg Sertraline HCl (Zoloft) 50 mg PO DAILY [facility] Last Admin: 03/16/17 12:40 Dose: Not Given Zolpidem Tartrate (Ambien) 5 mg PO HS PRN; Protocol PRN Reason: Insomnia - Labs Labs: 03/16/17 11:58 03/16/17 11:58 PT 11.0 Seconds (9.9-11.8) 03/15/17 07:00 INR 1.02 (0.93-1.08) 03/15/17 07:00 APTT 25.7 Seconds (23.7-30.8) 03/15/17 07:00 - Constitutional Appears: Non-toxic - Head Exam Head Exam: ATRAUMATIC, NORMAL INSPECTION, NORMOCEPHALIC - Eye Exam Eye Exam: Normal appearance - ENT Exam ENT Exam: Mucous Membranes Moist, Normal Exam - Neck Exam Neck Exam: Normal Inspection - Respiratory Exam Respiratory Exam: Clear to Ausculation Bilateral, NORMAL BREATHING PATTERN - Cardiovascular Exam Cardiovascular Exam: Tachycardia, REGULAR RHYTHM, RRR, +S1, +S2 - GI/Abdominal Exam GI & Abdominal Exam: Soft, Normal Bowel Sounds - Extremities Exam Extremities Exam: Normal Inspection - Neurological Exam Neurological Exam: Alert, Awake, Normal Gait, Oriented x3 - Psychiatric Exam Psychiatric exam: Agitated, Anxious Assessment and Plan - Assessment and Plan (Free Text) Assessment: Assessment: Plan: This is a 31Y AA M with PMH of anxiety and chronic abdominal pain admitted for symptomatic 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 Patient now has acute rhabdomylysis secondary to seizure and hyponatremia. Plan GI: Transaminitis - can be secondary to elevated CK Abdominal U/S showed echogenicity of R kidney, but otherwise normal GI F/U, c/o dizziness on eating, elevated BP, ??? Carcinoid Continue Regular diet Acute Rhabdomyolysis CK Trending down but still elevated No hypocalcemia or renal failure at this time Con't NS@200 Continue to monitor urine output Hypokalemia/alkalosis/HTN: ?? hyperaldosteronism Check plasma aldosterone, renin Check plasma metanephrines HTN: partailly 2/2 NS infusion was started on amlodipine 5mg/day, but because of tachycardia will discontinue amlodipine and put him on Lopressor 25mg BID Tachycardia/Elevated BP: ?? 2/2 Anxiety EKG Stat Lopressor 5mg IV push x1 dose
--- NOTE | 2017-03-16 15:47 | CARD ---
APPROVED REPORT EKG Measurement Heart [id number] <Conclusion> Sinus tachycardia Nonspecific T wave abnormality LVH by voltage
--- NOTE | 2017-03-16 18:42 | CP.PCM.PN ---
Subjective - Date & Time of Evaluation Date of Evaluation: 03/16/17 Time of Evaluation: 15:00 - Subjective Subjective: The patient is a 31 year old AAM with a reported history of chronic abdominal pain and anxiety who presented to the [facility] ED 2 days ago for worsening diffuse abdominal pain, palpitations and restlessness. Of note, due to the patient's altered mentation, details of the history were obtained solely from ED notes. A CT-A/P was done and found to be normal and therefore, the patient was discharged home from [facility] [place] ED 2 days ago. Of note, he had a previously scheduled appointment for an outpatient colonoscopy to be done today , as part of work-up for his chronic abdominal pain. However, because his symptoms persisted after returning home from the [facility] [place] ED, he decided to present to the [facility] [place] ED last night. He also reportedly has been feeling very dehydrated over the past 24hours and therefore drank large volumes of water ( per ED report). While in the [facility] [place] ED last night, he was noted to have a brief tonic-clonic seizure which resolved with IV Ativan given by the ED. However, since the seizure, he has become markedly altered, to the extent that he is no longer able to follow any commands. Also, ED labs showed numerous abnormalities including, an elevated lactic acid (9.8), hyponatremia (Xw=969) and metabolic acidosis (serum bicarb=17). Consequently, he was given a 100cc IV Bolus of 3% saline by the ED physician around 12:45am this morning. since admission seen by multiple subspecialties eelectrolytes are fix, now fully awake and and alert, with non specific abdominal pain, snoring, out to bed to chair, nervous about his disease, very non specific complains, seen by psychiatry Objective - Vital Signs/Intake and Output Vital Signs (last 24 hours): Temp Pulse Resp BP Pulse Ox 98.1 F 90 20 151/101 H 100 03/16/17 07:30 03/16/17 10:51 03/16/17 07:30 03/16/17 10:51 03/16/17 07:30 Intake and Output: 03/16/17 03/16/17 06:59 18:59 Intake Total 1020 540 Balance 1020 540 - Medications Medications: Current Medications Acetaminophen (Tylenol 325mg Tab) 650 mg PO Q4H PRN PRN Reason: Pain, Mild (1-3) Last Admin: 03/15/17 02:53 Dose: 650 mg Al Hydrox/Mg Hydrox/Simethicone (Maalox Plus 30 Ml) 30 ml PO DAILY PRN PRN Reason: Indigestion / Heartburn Last Admin: 03/16/17 06:54 Dose: 30 ml Amlodipine Besylate (Norvasc) 5 mg PO DAILY [facility] Last Admin: 03/16/17 10:51 Dose: 5 mg Benzocaine/Menthol (Cepacol Sore Throat) 1 thomas MT Q2H PRN PRN Reason: Sore Throat Clonazepam (Klonopin) 0.5 mg PO HS [facility] PRN Reason: Protocol Enoxaparin Sodium (Lovenox) 40 mg SC DAILY [facility] PRN Reason: Protocol Last Admin: 03/16/17 09:44 Dose: Not Given Magnesium Oxide (Mag-Ox) 400 mg PO TID [facility] Last Admin: 03/16/17 13:16 Dose: 400 mg Metoprolol Tartrate (Lopressor) 25 mg PO BID [facility] Ondansetron HCl (Zofran Inj) 4 mg IVP Q6H PRN PRN Reason: Nausea/Vomiting Pantoprazole Sodium (Protonix Ec Tab) 40 mg PO 0600 [facility] Last Admin: 03/16/17 06:54 Dose: 40 mg Sertraline HCl (Zoloft) 50 mg PO DAILY [facility] Last Admin: 03/16/17 12:40 Dose: Not Given Zolpidem Tartrate (Ambien) 5 mg PO HS PRN; Protocol PRN Reason: Insomnia - Labs Labs: 03/16/17 11:58 03/16/17 11:58 PT 11.0 Seconds (9.9-11.8) 03/15/17 07:00 INR 1.02 (0.93-1.08) 03/15/17 07:00 APTT 25.7 Seconds (23.7-30.8) 03/15/17 07:00 - Constitutional Appears: Agitated - Head Exam Head Exam: ATRAUMATIC, NORMAL INSPECTION, NORMOCEPHALIC - Eye Exam Eye Exam: EOMI, Normal appearance, PERRL Pupil Exam: NORMAL ACCOMODATION, PERRL - ENT Exam ENT Exam: Mucous Membranes Moist, Normal Exam - Neck Exam Neck Exam: Full ROM, Normal Inspection. absent: Lymphadenopathy - Respiratory Exam Respiratory Exam: Clear to Ausculation Bilateral, NORMAL BREATHING PATTERN - Cardiovascular Exam Cardiovascular Exam: REGULAR RHYTHM, +S1, +S2. absent: Murmur - GI/Abdominal Exam GI & Abdominal Exam: Soft, Normal Bowel Sounds. absent: Tenderness - Extremities Exam Extremities Exam: Full ROM, Normal Capillary Refill, Normal Inspection. absent : Joint Swelling, Pedal Edema - Neurological Exam Neurological Exam: Alert, Awake, CN II-XII Intact, Normal Gait, Oriented x3 - Psychiatric Exam Psychiatric exam: Anxious Assessment and Plan (1) ARABELLA (obstructive sleep apnea) Assessment & Plan: careful with sedation, sleep study as out patient Status: Acute (2) Anxiety Assessment & Plan: seen by psychiatry, started on klonipine Status: Acute (3) Acute hyponatremia Assessment & Plan: resolve Status: Acute (4) Hypomagnesemia Assessment & Plan: resolve Status: Acute (5) New onset seizure Assessment & Plan: probably from electrolyte embalance Status: Acute (6) Abdominal discomfort Assessment & Plan: improve Status: Acute
--- NOTE | 2017-03-16 22:18 | CP.PCM.PN ---
Subjective - Date & Time of Evaluation Date of Evaluation: 03/16/17 Time of Evaluation: 05:30 - Subjective Subjective: 31 years old male with multiple medicle problems , had new onset seizures , abn. lft . had multiple times panic attacks today , dd done with nurse Paxton . she had dd with dr Birmingham and dr Neil , pt was refusing zoloft and clonapine , finally he got medcine and started feeling better , girl friend and brother was on the bed side , all questions answered Objective - Vital Signs/Intake and Output Vital Signs (last 24 hours): Temp Pulse Resp BP Pulse Ox 98.1 F 97 H 20 130/88 100 03/16/17 07:30 03/16/17 18:49 03/16/17 07:30 03/16/17 18:49 03/16/17 07:30 Intake and Output: 03/16/17 03/17/17 18:59 06:59 Intake Total 540 Balance 540 - Medications Medications: Current Medications Acetaminophen (Tylenol 325mg Tab) 650 mg PO Q4H PRN PRN Reason: Pain, Mild (1-3) Last Admin: 03/15/17 02:53 Dose: 650 mg Al Hydrox/Mg Hydrox/Simethicone (Maalox Plus 30 Ml) 30 ml PO DAILY PRN PRN Reason: Indigestion / Heartburn Last Admin: 03/16/17 06:54 Dose: 30 ml Amlodipine Besylate (Norvasc) 5 mg PO DAILY [facility] Last Admin: 03/16/17 10:51 Dose: 5 mg Benzocaine/Menthol (Cepacol Sore Throat) 1 thomas MT Q2H PRN PRN Reason: Sore Throat Clonazepam (Klonopin) 0.5 mg PO HS [facility] PRN Reason: Protocol Enoxaparin Sodium (Lovenox) 40 mg SC DAILY [facility] PRN Reason: Protocol Last Admin: 03/16/17 09:44 Dose: Not Given Magnesium Oxide (Mag-Ox) 400 mg PO TID [facility] Last Admin: 03/16/17 18:49 Dose: 400 mg Metoprolol Tartrate (Lopressor) 25 mg PO BID [facility] Last Admin: 03/16/17 18:49 Dose: Not Given Ondansetron HCl (Zofran Inj) 4 mg IVP Q6H PRN PRN Reason: Nausea/Vomiting Pantoprazole Sodium (Protonix Ec Tab) 40 mg PO 0600 [facility] Last Admin: 03/16/17 06:54 Dose: 40 mg Sertraline HCl (Zoloft) 50 mg PO DAILY [facility] Last Admin: 03/16/17 12:40 Dose: Not Given Zolpidem Tartrate (Ambien) 5 mg PO HS PRN; Protocol PRN Reason: Insomnia - Labs Labs: 03/16/17 11:58 03/16/17 11:58 PT 11.0 Seconds (9.9-11.8) 03/15/17 07:00 INR 1.02 (0.93-1.08) 03/15/17 07:00 APTT 25.7 Seconds (23.7-30.8) 03/15/17 07:00 - Constitutional Appears: Well, Agitated - Head Exam Head Exam: ATRAUMATIC, NORMAL INSPECTION, NORMOCEPHALIC - Eye Exam Eye Exam: EOMI, Normal appearance, PERRL Pupil Exam: NORMAL ACCOMODATION, PERRL - ENT Exam ENT Exam: Mucous Membranes Moist, Normal Exam - Neck Exam Neck Exam: Full ROM, Normal Inspection. absent: Lymphadenopathy - Respiratory Exam Respiratory Exam: Clear to Ausculation Bilateral, NORMAL BREATHING PATTERN - Cardiovascular Exam Cardiovascular Exam: REGULAR RHYTHM, +S1, +S2. absent: Murmur - GI/Abdominal Exam GI & Abdominal Exam: Soft, Normal Bowel Sounds. absent: Tenderness - Rectal Exam Rectal Exam: Deferred, NORMAL INSPECTION - Back Exam Back Exam: NORMAL INSPECTION - Neurological Exam Neurological Exam: Alert, Awake, CN II-XII Intact, Normal Gait, Oriented x3 - Psychiatric Exam Psychiatric exam: Normal Affect, Normal Mood - Skin Skin Exam: Dry, Intact, Normal Color, Warm Assessment and Plan (1) Acute hyperkalemia Assessment & Plan: improved Status: Resolved (2) Acute hyponatremia Assessment & Plan: trendding down Status: Acute (3) Hypomagnesemia Status: Acute (4) New onset seizure Assessment & Plan: stable Status: Acute (5) Abdominal discomfort Assessment & Plan: better Status: Acute (6) Chest discomfort Status: Acute (7) Chest pain Status: Acute (8) Headache Status: Acute (9) Anxiety Status: Acute (10) ARABELLA (obstructive sleep apnea) Status: Acute (11) Transaminitis Status: Acute - Assessment and Plan (Free Text) Assessment: d. d with dr Neil , will make dc plan tomarrow , repeat labs . will f/u Plan: d/d with family , cont. f/u with labs . ,
[2017-03-17] MEDS: Pantoprazole 40 mg EC Tab PO SCH (06:03)
[2017-03-17 07:28] LABS: HEMOGLOBIN 16.4 gm/dL (14.0-18.0); MEAN CELL VOLUME 86.4 fL (80.0-105.0); MEAN CORPUSCULAR HEMOGLOBIN 30.5 pg (25.0-35.0); MEAN CORPUSCULAR HGB CONC 35.3 g/dl (31.0-37.0); MEAN PLATELET VOLUME 8.8 fl (7.0-11.0); RBC 5.38 10^6/uL (3.5-6.1); WHITE BLOOD COUNT 6.8 10^3/ul (4.5-11.0)
[2017-03-17 07:36] LABS: BLOOD UREA NITROGEN 10 mg/dL (7-21); CALCIUM 10.1 mg/dL (8.4-10.5); GFR AFRICAN-AMERICAN > 60; GFR NON-AFRICAN AMERICAN > 60
[2017-03-17 07:58] VITALS: RESP 18; TEMP 98; O2SAT 99
--- NOTE | 2017-03-17 09:09 | CP.PCM.PN ---
Subjective - Date & Time of Evaluation Date of Evaluation: 03/17/17 Time of Evaluation: 09:03 - Subjective Subjective: RFV: Elevated lfts/abdominal pain S: Reports he feels a bit better. Tolerating diet. Mild constipation. Had bm last night. no blood. Reports acid reflux and improvement with ppi. Reports some improvement in abdominal pain and overall feeling a bit better. Objective - Vital Signs/Intake and Output Vital Signs (last 24 hours): Temp Pulse Resp BP Pulse Ox 98.0 F 103 H 18 130/88 99 03/17/17 07:57 03/17/17 07:57 03/17/17 07:57 03/16/17 18:49 03/17/17 07:57 Intake and Output: 03/17/17 03/17/17 06:59 18:59 Intake Total 1200 Output Total 600 Balance 600 - Medications Medications: Current Medications Acetaminophen (Tylenol 325mg Tab) 650 mg PO Q4H PRN PRN Reason: Pain, Mild (1-3) Last Admin: 03/15/17 02:53 Dose: 650 mg Al Hydrox/Mg Hydrox/Simethicone (Maalox Plus 30 Ml) 30 ml PO DAILY PRN PRN Reason: Indigestion / Heartburn Last Admin: 03/16/17 06:54 Dose: 30 ml Amlodipine Besylate (Norvasc) 5 mg PO DAILY [facility] Last Admin: 03/16/17 10:51 Dose: 5 mg Benzocaine/Menthol (Cepacol Sore Throat) 1 thomas MT Q2H PRN PRN Reason: Sore Throat Clonazepam (Klonopin) 0.5 mg PO HS [facility] PRN Reason: Protocol Last Admin: 03/16/17 22:07 Dose: 0.5 mg Enoxaparin Sodium (Lovenox) 40 mg SC DAILY [facility] PRN Reason: Protocol Last Admin: 03/16/17 09:44 Dose: Not Given Magnesium Oxide (Mag-Ox) 400 mg PO TID [facility] Last Admin: 03/16/17 18:49 Dose: 400 mg Metoprolol Tartrate (Lopressor) 25 mg PO BID [facility] Last Admin: 03/16/17 18:49 Dose: Not Given Ondansetron HCl (Zofran Inj) 4 mg IVP Q6H PRN PRN Reason: Nausea/Vomiting Pantoprazole Sodium (Protonix Ec Tab) 40 mg PO 0600 [facility] Last Admin: 03/17/17 06:03 Dose: 40 mg Sertraline HCl (Zoloft) 50 mg PO DAILY [facility] Last Admin: 03/16/17 12:40 Dose: Not Given Zolpidem Tartrate (Ambien) 5 mg PO HS PRN; Protocol PRN Reason: Insomnia - Labs Labs: 03/17/17 07:14 03/17/17 07:14 PT 11.0 Seconds (9.9-11.8) 03/15/17 07:00 INR 1.02 (0.93-1.08) 03/15/17 07:00 APTT 25.7 Seconds (23.7-30.8) 03/15/17 07:00 - Constitutional Appears: Non-toxic, No Acute Distress - Head Exam Head Exam: ATRAUMATIC, NORMOCEPHALIC - Eye Exam Eye Exam: Normal appearance. absent: Scleral icterus - Respiratory Exam Respiratory Exam: Clear to Ausculation Bilateral, NORMAL BREATHING PATTERN. absent: Respiratory Distress - Cardiovascular Exam Cardiovascular Exam: +S1, +S2 - GI/Abdominal Exam GI & Abdominal Exam: Soft. absent: Tenderness - Neurological Exam Neurological Exam: Alert, Oriented x3 - Psychiatric Exam Psychiatric exam: Flat Affect, Normal Mood - Skin Skin Exam: Dry, Warm Assessment and Plan - Assessment and Plan (Free Text) Assessment: 31 year old male with h/o anxiety, chronic abdominal pain, GERD admitted with severe hyponatremia c/b seizure and rhabdomyolysis. 1. Elevated lfts 2. Abdominal pain 3. GERD Plan: -LFTs are 2/2 rhabdomyolysis -extensive evaluation for chronic liver disease is negative including viral / autoimmune workup as well as imaging studies -repeat lfts in 1-2 months to make sure they normalize -management of rhabdomyolysis per primary -regarding abdominal pain, uncertain etiology, abdominal imaging unrevealing, he had endoscopy -would recommend continuing PPI daily indefinitely and follow up with his GI doctor and another colonoscopy could be considered at that time -no additional inpatient diagnostic evaluation is warranted for the abdominal pain at this time -diet as tolerated
[2017-03-17] MEDS: Magnesium Oxide 400 mg Tab UD PO SCH (09:13)
[2017-03-17] MEDS: Enoxaparin 40 mg Syringe SC SCH (09:14)
[2017-03-17 11:31] VITALS: BP 145/99; PULSE 100
--- NOTE | 2017-03-17 16:00 | CP.PCM.DIS ---
Provider - Provider Date of Admission: 03/10/17 01:16 Attending physician: Mireya Anderson MD Primary care physician: Radha Meza, RN Consults: dr freedman . GI .dr crawley Time Spent in preparation of Discharge (in minutes): 40 Diagnosis - Discharge Diagnosis (1) Acute hyperkalemia Status: Resolved (2) Acute hyponatremia Status: Acute (3) Hypomagnesemia Status: Acute (4) New onset seizure Status: Acute (5) Abdominal discomfort Status: Acute (6) Chest discomfort Status: Acute (7) Chest pain Status: Acute (8) Headache Status: Acute (9) Anxiety Status: Acute (10) ARABELLA (obstructive sleep apnea) Status: Acute (11) Transaminitis Status: Acute Hospital Course - Lab Results Lab Results: Micro Results 03/10/17 02:30 Blood-Venous Blood Culture - Final NO GROWTH AFTER 5 DAYS 03/10/17 02:30 Blood-Venous Gram Stain - Final TEST NOT PERFORMED 03/10/17 02:00 Blood-Venous Blood Culture - Final NO GROWTH AFTER 5 DAYS 03/10/17 02:00 Blood-Venous Gram Stain - Final 03/10/17 02:00 Urine,Parrish Urine Culture - Final No Growth (<1,000 CFU/ML) 03/10/17 05:00 Nose MRSA Culture (Admit) - Final MRSA NOT DETECTED Most Recent Lab Values WBC 6.8 10^3/ul (4.5-11.0) 03/17/17 07:14 RBC 5.38 10^6/uL (3.5-6.1) 03/17/17 07:14 Hgb 16.4 gm/dL (14.0-18.0) 03/17/17 07:14 Hct 46.5 % (42.0-52.0) 03/17/17 07:14 MCV 86.4 fL (80.0-105.0) 03/17/17 07:14 MCH 30.5 pg (25.0-35.0) 03/17/17 07:14 MCHC 35.3 g/dl (31.0-37.0) 03/17/17 07:14 RDW 13.0 % (11.5-14.5) 03/17/17 07:14 Plt Count 308 10^3/uL (120.0-450.0) 03/17/17 07:14 MPV 8.8 fl (7.0-11.0) 03/17/17 07:14 Gran % 80.9 % (50.0-68.0) H 03/11/17 05:30 Lymph % (Auto) 10.8 % (22.0-35.0) L 03/11/17 05:30 Jessamine % (Auto) 8.0 % (1.0-6.0) H 03/11/17 05:30 Eos % (Auto) 0.1 % (1.5-5.0) L 03/11/17 05:30 Baso % (Auto) 0.2 % (0.0-3.0) 03/11/17 05:30 Gran # 9.04 (1.4-6.5) H 03/11/17 05:30 Lymph # 1.2 (1.2-3.4) 03/11/17 05:30 Jessamine # 0.9 (0.1-0.6) H 03/11/17 05:30 Eos # 0.0 (0.0-0.7) 03/11/17 05:30 Baso # 0.02 K/mm3 (0.0-2.0) 03/11/17 05:30 PT 11.0 Seconds (9.9-11.8) 03/15/17 07:00 INR 1.02 (0.93-1.08) 03/15/17 07:00 APTT 25.7 Seconds (23.7-30.8) 03/15/17 07:00 pCO2 34 mm/Hg (35-45) L 03/10/17 00:35 pO2 100 mm/Hg (30-55) H 03/10/17 17:55 HCO3 12.1 mmol/L (21-28) L 03/10/17 00:35 ABG pH 7.16 (7.35-7.45) L* 03/10/17 00:35 ABG Total CO2 13.1 mmol.L (22-28) L 03/10/17 00:35 ABG O2 Saturation 97.1 % (95-98) 03/10/17 00:35 ABG Base Excess -15.6 mmol/L (-2.0-3.0) L 03/10/17 00:35 ABG Potassium 2.4 mmol/L (3.6-5.2) L* 03/10/17 00:35 VBG pH 7.42 (7.32-7.43) 03/10/17 17:55 VBG pCO2 43.0 (40-60) 03/10/17 17:55 VBG HCO3 27.9 mmol/l (21-28) 03/10/17 17:55 VBG Total CO2 29.2 mmol.L (22-28) H 03/10/17 17:55 VBG O2 Sat (Calc) 99.7 % (40-65) H 03/10/17 17:55 VBG Base Excess 2.9 mmol/L (0.0-2.0) H 03/10/17 17:55 VBG Potassium 3.6 mmol/L (3.6-5.2) 03/10/17 17:55 Sodium 137.0 mmol/L (132-148) 03/10/17 17:55 Chloride 104.0 mmol/L (98-107) 03/10/17 17:55 Glucose 93 mg/dl (75-110) 03/10/17 17:55 Lactate 1.0 mmol/L (0.7-2.1) 03/10/17 17:55 FiO2 21.0 % 03/10/17 17:55 Sodium 138 mmol/L (132-148) 03/17/17 07:14 Potassium 3.9 mmol/L (3.6-5.0) 03/17/17 07:14 Chloride 95 mmol/L (98-107) L 03/17/17 07:14 Carbon Dioxide 32 mmol/L (21-33) 03/17/17 07:14 Anion Gap 15 (10-20) 03/17/17 07:14 BUN 10 mg/dL (7-21) 03/17/17 07:14 Creatinine 0.8 mg/dL (0.5-1.4) 03/17/17 07:14 Est GFR ( Amer) > 60 03/17/17 07:14 Est GFR (Non-Af Amer) > 60 03/17/17 07:14 POC Glucose (mg/dL) 130 mg/dL (65-110) H 03/09/17 22:52 Random Glucose 94 mg/dL (70-110) 03/17/17 07:14 Hemoglobin A1c 5.2 % (4.2-6.5) 03/16/17 06:35 Serum Osmolality 250 mosm/kg (271-296) L 03/10/17 00:30 Lactic Acid 1.9 mmol/L (0.7-2.1) 03/10/17 07:50 Calcium 10.1 mg/dL (8.4-10.5) 03/17/17 07:14 Phosphorus 4.4 mg/dL (2.5-4.5) 03/11/17 05:30 Magnesium 1.6 mg/dL (1.7-2.2) L 03/15/17 09:50 Iron 36 ug/dL (45-180) L 03/11/17 13:41 TIBC 294 ug/dL (261-462) 03/11/17 13:41 % Saturation 12 % (20-55) L 03/11/17 13:41 Ferritin 314.0 ng/mL 03/11/17 13:41 Total Bilirubin 1.3 mg/dL (0.2-1.3) 03/16/17 11:58 Direct Bilirubin 0.5 mg/dL (0.0-0.4) H 03/11/17 13:41 AST 472 U/L (15-59) H 03/16/17 11:58 ALT 423 U/L (7-56) H 03/16/17 11:58 Alkaline Phosphatase 64 U/L (38-133) 03/16/17 11:58 Ammonia < 9 umol/L (9-33) L 03/10/17 07:50 Total Creatine Kinase 2422 U/L (35-230) H 03/17/17 07:14 CK-MB (CK-2) 2.0 ng/mL (0.0-3.6) 03/17/17 07:14 CK-MB (CK-2) % 0.7 % (2.5-3.0) L 03/10/17 07:05 Troponin I < 0.01 ng/mL 03/10/17 09:00 Total Protein 8.5 g/dL (5.8-8.3) H 03/16/17 11:58 Albumin 4.4 g/dL (3.0-4.8) 03/16/17 11:58 Globulin 4.1 gm/dL 03/16/17 11:58 Albumin/Globulin Ratio 1.1 (1.1-1.8) 03/16/17 11:58 Triglycerides 48 mg/dL (35-160) 03/15/17 09:50 Cholesterol 166 mg/dL (130-200) 03/15/17 09:50 LDL Cholesterol Direct 101 mg/dL (0-129) 03/15/17 09:50 HDL Cholesterol 55 mg/dL (29-60) 03/15/17 09:50 Lipase 44 U/L (23-300) 03/10/17 00:30 Procalcitonin 0.05 NG/ML (0.19-0.49) L 03/10/17 07:05 TSH 3rd Generation 0.45 mIU/mL (0.46-4.68) L 03/10/17 07:50 Arterial Blood Potassium 2.4 mmol/L (3.6-5.2) L* 03/10/17 00:35 Venous Blood Potassium 3.6 mmol/L (3.6-5.2) 03/10/17 17:55 Urine Color Yellow (YELLOW) 03/12/17 18:15 Urine Appearance Clear (CLEAR) 03/12/17 18:15 Urine pH 6.0 (4.7-8.0) 03/12/17 18:15 Ur Specific [place] 1.010 (1.005-1.035) 03/12/17 18:15 Urine Protein Negative mg/dL (<30 mg/dL) 03/12/17 18:15 Urine Glucose (UA) Negative mg/dL (NEGATIVE) 03/12/17 18:15 Urine Ketones Negative mg/dL (NEGATIVE) 03/12/17 18:15 Urine Blood Large (NEGATIVE) H 03/12/17 18:15 Urine Nitrate Negative (NEGATIVE) 03/12/17 18:15 Urine Bilirubin Negative (NEGATIVE) 03/12/17 18:15 Urine Urobilinogen 0.2 E.U./dL (<1 E.U./dL) 03/12/17 18:15 Ur Leukocyte Esterase Negative Ezra/uL (NEGATIVE) 03/12/17 18:15 Urine RBC 20 - 25 /hpf (0-2) 03/12/17 18:15 Urine WBC 0 - 2 /hpf (0-6) 03/12/17 18:15 Ur Epithelial Cells None /hpf (0-5) 03/12/17 18:15 Urine Bacteria Few (NEG) 03/12/17 18:15 Urine Osmolality 184 mosm/kg (50-645) 03/10/17 12:00 Ur Random Creatinine 4 mg/dL 03/10/17 12:00 Ur Random Sodium 48 meq/L 03/10/17 12:00 Ur Random Potassium 9.1 meq/L 03/10/17 12:00 Salicylates < 1 mg/dL (2.0-20.0) L 03/10/17 09:00 Urine Opiates Screen Negative (NEGATIVE) 03/10/17 12:00 Urine Methadone Screen Negative (NEGATIVE) 03/10/17 12:00 Acetaminophen < 10.0 ug/ml (10.0-20.0) L 03/10/17 09:00 Ur Barbiturates Screen Negative (NEGATIVE) 03/10/17 12:00 Ur Phencyclidine Scrn Negative (NEGATIVE) 03/10/17 12:00 Ur Amphetamines Screen Negative (NEGATIVE) 03/10/17 12:00 U Benzodiazepines Scrn Negative (NEGATIVE) 03/10/17 12:00 U Oth Cocaine Metabols Negative (NEGATIVE) 03/10/17 12:00 U Cannabinoids Screen Negative (NEGATIVE) 03/10/17 12:00 Alcohol, Quantitative < 10 mg/dL (0-10) 03/10/17 00:30 IgG 1486.3 mg/dL (700.0-1600.0) 03/11/17 13:41 IgA 175.7 mg/dL (70.0-400.0) 03/11/17 13:41 IgM 88.2 mg/dL (40.0-230.0) 03/11/17 13:41 SUDHA Screen Negative (Negative) 03/11/17 13:41 Anti-Mitochondrial Ab Negative (Negative) 03/12/17 05:30 Smooth Muscle Ab Titer TEST NOT PERFORMED 03/12/17 05:30 Anti-Smooth Muscle Ab Negative (Negative) 03/12/17 05:30 Liver/Kid Microsomes Ab <=20.0 U (<=20.0) 03/11/17 13:41 Hepatitis A IgM Ab Negative (NEGATIVE) 03/10/17 11:50 Hep Bs Antigen Negative (NEGATIVE) 03/10/17 11:50 Hep Bs Antibody Negative (NEGATIVE) 03/11/17 13:00 Hep B Core Total Ab Non reactive (Non Reactive) 03/12/17 05:30 Hep B Core IgM Ab Negative (NEGATIVE) 03/10/17 11:50 Hepatitis C Antibody Negative (NEGATIVE) 03/10/17 11:50 HIV 1&2 Antibody Screen Negative (NEGATIVE) 03/10/17 07:50 - Hospital Course Hospital Course: 31 years old male new for me had abdominal pain , went to [facility] , got cat scane of abdomen , was ok dc home . went to see gi as out pt , scadual colonoscopy , golyte given , started diarrhea , got gehydrate , drank lot of water , electrolyte got messup . admitted in [facility] with AMS , ab.lft anxiety seen by psyche, dr Birmingham , advised zoloft and klonapine , lft and rhabdomyalasis improved pt is requesting dc home for celebration . all chatrt noted , allconsuts appreciated , dc home with f/u my office [place] for repeat labs , especially lft , meds pres. given, educated about ethnol , tylanol ,use and need f/u Discharge Exam - Head Exam Head Exam: ATRAUMATIC, NORMOCEPHALIC - Eye Exam Eye Exam: EOMI, Normal appearance, PERRL Pupil Exam: NORMAL ACCOMODATION, PERRL - ENT Exam ENT Exam: Normal Exam - Neck Exam Neck exam: Full Rom, Normal Inspection - Respiratory Exam Respiratory Exam: Clear to PA & Lateral - Cardiovascular Exam Cardiovascular Exam: Tachycardia, REGULAR RHYTHM, +S1, +S2 - GI/Abdominal Exam GI & Abdominal Exam: Normal Bowel Sounds - Back Exam Back exam: FULL ROM, NORMAL INSPECTION - Neurological Exam Neurological exam: Alert, CN II-XII Intact, Normal Gait, Oriented x3, Reflexes Normal - Psychiatric Exam Psychiatric exam: Anxious, Normal Affect, Normal Mood - Skin Skin Exam: Dry, Intact, Normal Color, Warm Discharge Plan - Discharge Medications Prescriptions: clonazePAM [Klonopin] 0.25 mg PO TID PRN #20 tab PRN Reason: Anxiety Metoprolol Tartrate [Lopressor] 25 mg PO BID #60 tab amLODIPine [Norvasc] 5 mg PO DAILY #30 tab Pantoprazole [Protonix EC Tab] 40 mg PO 0600 #30 ect Sertraline [Zoloft] 25 mg PO DAILY #30 tab - Follow Up Plan Instructions: Hyponatremia (DC), Hyponatremia (GEN), Fall Prevention for Older Adults (GEN), Abuse of Alcohol (DC), New-Onset Seizure in Adults (DC) Referrals: Radha Meza RN [Primary Care Provider] - Mireya Anderson MD [Staff Provider] -
== END 2017-03-17 13:45 | disposition home or self-care (01) | DRG 641 ==
LOC: ED 22:41 → ERH 03-10 01:16 → CCU 03-10 04:55 → 5RSO 03-12 15:03
PROVIDERS: ADMIT Internal Medicine; ATTEND Internal Medicine
DX: E87.1 Hypo-osmolality and hyponatremia (principal); M62.82 Rhabdomyolysis; G40.89 Other seizures; E86.0 Dehydration; E87.6 Hypokalemia; E87.2 Acidosis; E83.42 Hypomagnesemia; F41.9 Anxiety disorder, unspecified; K21.9 Gastro-esophageal reflux disease without esophagitis; G89.29 Other chronic pain; E80.4 Gilbert syndrome; G47.33 Obstructive sleep apnea (adult) (pediatric); N13.30 Unspecified hydronephrosis; R63.1 Polydipsia; D64.9 Anemia, unspecified; J02.9 Acute pharyngitis, unspecified; R07.89 Other chest pain; I10 Essential (primary) hypertension; R10.11 Right upper quadrant pain; R10.31 Right lower quadrant pain; K59.00 Constipation, unspecified; F41.0 Panic disorder [episodic paroxysmal anxiety]; R74.0 Nonspecific elevation of levels of transaminase and lactic acid dehydrogenase [LDH]; Z78.1 Physical restraint status; Z91.14 Patient's other noncompliance with medication regimen

== ENCOUNTER 2017-03-18 12:36 | Emergency (ER) | payer BC ==
[2017-03-18 12:46] VITALS: BMI 23.7
[2017-03-18 12:55] VITALS: O2SAT 100
--- NOTE | 2017-03-18 13:10 | ED PDOC ---
Arrival/HPI - General Chief Complaint: Anxiety Time Seen by Provider: 03/18/17 12:46 Historian: Patient - History of Present Illness Narrative History of Present Illness (Text): 31 y/o M p/w palpitations x few hours. Patient was recently admitted to this hospital for 8 days for seizure secondary to hyponatremia secondary to increased oral fluid intake in preparation for a colonoscopy. During the patient 's admission, he was found to have bouts of hypertension and tachycardia and was discharged on medications for anxiety, Hypertension, and tachycardia. He has filled these prescriptions but has not taken any of them. He states that he was such a healthy, symptom free person, and now that he has left the hospital, he has been giving so many medications, and he does not feel right taking them. He was discharged yesterday, and today, he had palpitations which reminded him of how he felt prior to his seizure so he went back to the ER at [facility] where he had a normal EKG and blood work so he was discharged. He states he went home, took some Milk of Magnesia due to constipation and went to sleep, and when he awoke, he states he had palpitations again but now with numbness in the face, legs, a feeling of throat swelling, headache, shortness of breath so he came back to the ER. He denies fever, chills, chest pain, vomiting, dysuria, weakness. PMD: Dr. Meza Time/Duration: 1-3 hours Symptom Onset: Sudden Symptom Course: Other Quality: Other Activities at Onset: Rest Context: Home Past Medical History - Provider Review Nursing Documentation Reviewed: Yes - Past History Past History: No Previous - Infectious Disease Hx of Infectious Diseases: None - Tetanus Immunization Tetanus Immunization: Unknown - Cardiac Hx Hypertension: Yes - Pulmonary Hx Asthma: Yes - Neurological Hx Neurological Disorder: No - HEENT Hx HEENT Disorder: No - Renal Hx Renal Disorder: No - Endocrine/Metabolic Hx Endocrine Disorders: No - Hematological/Oncological Hx Blood Disorders: No - Integumentary Hx Dermatological Disorder: No - Musculoskeletal/Rheumatological Hx Musculoskeletal Disorders: No - Gastrointestinal Hx Gastroesophageal Reflux: Yes - Genitourinary/Gynecological Hx Genitourinary Disorders: No - Psychiatric Hx Anxiety: Yes Hx Substance Use: No - Past Surgical History Past Surgical History: No Previous - Anesthesia Hx Anesthesia: No - Suicidal Assessment Feels Threatened In Home Enviroment: No Family/Social History - Physician Review Nursing Documentation Reviewed: Yes Family/Social History: Unknown Family HX Smoking Status: Never Smoked Hx Alcohol Use: Yes Hx Substance Use: No Hx Substance Use Treatment: No Allergies/Home Meds Allergies/Adverse Reactions: Allergies No Known Allergies Allergy (Verified 03/18/17 12:47) Review of Systems - Physician Review All systems were reviewed & negative as marked: Yes - Review of Systems Constitutional: absent: Fevers Cardiovascular: Palpitations. absent: Chest Pain Physical Exam - Physical Exam Narrative Physical Exam (Text): Constitutional: No acute distress. Head: Normocephalic. Atraumatic. Eyes: PERRL. ENT: Moist mucous membranes. Neck: Supple. Cardiovascular: Tachycardia. Chest: No tenderness. Respiratory: Clear to auscultation bilaterally. GI: Soft. Nontender. Nondistended. Back: No CVA tenderness. Musculoskeletal: No tenderness or swelling of extremities. Skin: No rash. Neurologic: Alert, no focal deficit. Vital Signs Reviewed: Yes Vital Signs Temp Pulse Resp BP Pulse Ox 03/18/17 12:46 98.5 F 109 H 19 131/90 100 03/18/17 12:44 120 H 18 165/114 H 100 Temperature: Afebrile Blood Pressure: Hypertensive Pulse: Tachycardic Respiratory Rate: Normal Appearance: Positive for: Well-Appearing, Non-Toxic, Comfortable Pain Distress: None Mental Status: Positive for: Alert and Oriented X 3 Medical Decision Making ED Course and Treatment: 03/18/17 12:53 Impression: A 31 year old male with chest palpitations. Differential Diagnosis include but are not limited to: anxiety, PE, hyponatremia Plan: -- Labs -- Urinalysis -- Reassess and disposition Prior Visits: Notes and results from previous visits were reviewed. Patient presented to [facility] prior to coming here for the same complaint. Progress Notes: I had a long discussion with patient concerning the symptoms of anxiety vs the conglomerate of his symptoms and the likelihood that they would all be the result of one disease process. The patient strongly desired to be evaluated for "a clot in my chest." The patient was in no distress during ER stay and appears well. D Dimer negative. Labs unremarkable. EKG showed sinus rhythm, tachycardic rate, no ST/T wave changes. Advised to follow up with PMD. - Lab Interpretations Lab Results: 03/18/17 14:00 03/18/17 14:00 Lab Results 03/18/17 14:00: Sodium 135, Potassium 4.0, Chloride 96 L, Carbon Dioxide 28, Anion Gap 15, BUN 16, Creatinine 0.8, Est GFR ( Amer) > 60, Est GFR (Non- Af Amer) > 60, Random Glucose 99, Calcium 9.3, Total Bilirubin 1.6 H, AST 98 H, ALT 240 H, Alkaline Phosphatase 69, Total Protein 8.1, Albumin 4.4, Globulin 3.8 , Albumin/Globulin Ratio 1.2 03/18/17 14:00: D-Dimer, Quantitative 0.30 03/18/17 14:00: WBC 5.8, RBC 5.17, Hgb 15.6, Hct 43.8, MCV 84.7, MCH 30.2, MCHC 35.6, RDW 12.6, Plt Count 279, MPV 8.5, Gran % 74.5 H, Lymph % (Auto) 14.9 L, [place] % (Auto) 9.2 H, Eos % (Auto) 1.2 L, Baso % (Auto) 0.2, Gran # 4.29, Lymph # 0.9 L, [place] # 0.5, Eos # 0.1, Baso # 0.01 I have reviewed the lab results: Yes - Scribe Statement The provider has reviewed the documentation as recorded by the Scribe Brooklyn Vega Provider Scribe Attestation: All medical record entries made by the Scribe were at my direction and personally dictated by me. I have reviewed the chart and agree that the record accurately reflects my personal performance of the history, physical exam, medical decision making, and the department course for this patient. I have also personally directed, reviewed, and agree with the discharge instructions and disposition. Disposition/Present on Arrival - Present on Arrival Any Indicators Present on Arrival: No History of DVT/PE: No History of Uncontrolled Diabetes: No Urinary Catheter: No History of Decub. Ulcer: No History Surgical Site Infection Following: None - Disposition Have Diagnosis and Disposition been Completed?: Yes Diagnosis: Anxiety Disposition: HOME/ ROUTINE Disposition Time: 14:24 Patient Plan: Discharge Patient Problems: Current Active Problems Problem Status Onset Anxiety Acute Condition: STABLE Discharge Instructions (ExitCare): Anxiety (ED) Referrals: Delfino Meza APN [Primary Care Provider] - Follow up with primary
[2017-03-18 14:14] LABS: BASO # 0.01 K/mm3 (0.0-2.0); BASO % 0.2 % (0.0-3.0); EOS # 0.1 (0.0-0.7); EOS % 1.2 % (1.5-5.0); GRAN # 4.29 (1.4-6.5); GRAN % 74.5 % (50.0-68.0); HEMOGLOBIN 15.6 gm/dL (14.0-18.0); LYMPH # 0.9 (1.2-3.4); LYMPH % 14.9 % (22.0-35.0); MEAN CELL VOLUME 84.7 fL (80.0-105.0); MEAN CORPUSCULAR HEMOGLOBIN 30.2 pg (25.0-35.0); MEAN CORPUSCULAR HGB CONC 35.6 g/dl (31.0-37.0); MEAN PLATELET VOLUME 8.5 fl (7.0-11.0); MONO # 0.5 (0.1-0.6); MONO % 9.2 % (1.0-6.0); PLATELET COUNT 279 10^3/uL (120.0-450.0); RBC 5.17 10^6/uL (3.5-6.1); RED CELL DISTRIBUTION WIDTH 12.6 % (11.5-14.5); WHITE BLOOD COUNT 5.8 10^3/ul (4.5-11.0)
[2017-03-18 14:20] LABS: ALB/GLOB RATIO 1.2 (1.1-1.8); ALBUMIN 4.4 g/dL (3.0-4.8); ALT/SGPT 240 U/L (7-56); AST/SGOT 98 U/L (15-59); BLOOD UREA NITROGEN 16 mg/dL (7-21); CALCIUM 9.3 mg/dL (8.4-10.5); GFR AFRICAN-AMERICAN > 60; GFR NON-AFRICAN AMERICAN > 60
[2017-03-18 15:04] VITALS: BP 137/80; PULSE 96; RESP 18; TEMP 98.9
--- NOTE | 2017-03-19 09:23 | CARD ---
APPROVED REPORT EKG Measurement Heart [id number] <Conclusion> Sinus tachycardia Nonspecific ST and T wave abnormality LVH by voltage No change
== END 2017-03-18 15:02 | disposition home or self-care (01) ==
LOC: ED 12:36
DX: F41.9 Anxiety disorder, unspecified (principal); I10 Essential (primary) hypertension

== ENCOUNTER 2017-09-06 04:08 | Emergency (ER) | payer BC ==
[2017-09-06 04:09] VITALS: BMI 23.7
[2017-09-06 04:22] VITALS: BP 144/75; PULSE 70; RESP 18; TEMP 98.5; O2SAT 99
[2017-09-06] MEDS ORDERED: Sodium Chloride 0.9% 1,000 ML IV STA (04:34)
--- NOTE | 2017-09-06 04:41 | ED PDOC ---
Arrival/HPI - General Chief Complaint: Abdominal Pain Time Seen by Provider: 09/06/17 04:27 Historian: Patient - History of Present Illness Narrative History of Present Illness (Text): 09/06/17 04:38 A 32 year old male, whose past medical history includes gastritis, presents to the emergency department with epigastric pain. The patient states that he had an endoscopy done 10 days ago (08/27) revealing an ulcer. The patient states that he took his Protonix today with no improvement of his symptoms. The patient denies fevers, chills, headache, dizziness, chest pain, shortness of breath, dyspnea on exertion, cough, vomiting, diarrhea, back pain, neck pain, urinary/bowel changes, or any other complaint. PMD: Dr. Meza Time/Duration: Other (Today) Symptom Onset: Sudden Symptom Course: Unchanged Activities at Onset: Rest Context: Home Past Medical History - Provider Review Nursing Documentation Reviewed: Yes - Past History Past History: No Previous - Infectious Disease Hx of Infectious Diseases: None - Tetanus Immunization Tetanus Immunization: Unknown - Cardiac Hx Cardiac Disorders: Yes Hx Hypertension: Yes - Pulmonary Hx Respiratory Disorders: Yes Hx Asthma: Yes - Neurological Hx Neurological Disorder: No - HEENT Hx HEENT Disorder: No - Renal Hx Renal Disorder: No - Endocrine/Metabolic Hx Endocrine Disorders: No - Hematological/Oncological Hx Blood Disorders: No - Integumentary Hx Dermatological Disorder: No - Musculoskeletal/Rheumatological Hx Musculoskeletal Disorders: No - Gastrointestinal Hx Gastrointestinal Disorders: Yes Hx Gastritis: Yes Hx Gastroesophageal Reflux: Yes Hx Gastrointestinal Ulcer: Yes - Genitourinary/Gynecological Hx Genitourinary Disorders: No - Psychiatric Hx Psychophysiologic Disorder: Yes Hx Anxiety: Yes Hx Substance Use: No - Past Surgical History Past Surgical History: No Previous - Anesthesia Hx Anesthesia: No - Suicidal Assessment Feels Threatened In Home Enviroment: No Family/Social History - Physician Review Nursing Documentation Reviewed: Yes Family/Social History: No Known Family HX Smoking Status: Never Smoked Hx Alcohol Use: No Hx Substance Use: No Hx Substance Use Treatment: No Allergies/Home Meds Allergies/Adverse Reactions: Allergies No Known Allergies Allergy (Verified 04/21/17 14:57) Home Medications: Home Meds Medication Instructions Recorded Confirmed Pantoprazole Sodium [Protonix] 40 mg PO DAILY 09/06/17 09/06/17 Review of Systems - Physician Review All systems were reviewed & negative as marked: Yes - Review of Systems Constitutional: absent: Fevers, Night Sweats Respiratory: absent: SOB, Cough Cardiovascular: absent: Chest Pain, ADAM Gastrointestinal: Abdominal Pain (Epigastric). absent: Diarrhea, Nausea, Vomiting Genitourinary Male: absent: Urinary Output Changes Musculoskeletal: absent: Back Pain, Neck Pain Neurological: absent: Headache, Dizziness Physical Exam Vital Signs Reviewed: Yes Vital Signs Temp Pulse Resp BP Pulse Ox 09/06/17 04:20 98.5 F 70 18 144/75 99 Temperature: Afebrile Blood Pressure: Normal Pulse: Regular Respiratory Rate: Normal Appearance: Positive for: Well-Appearing, Non-Toxic, Comfortable Pain Distress: None Mental Status: Positive for: Alert and Oriented X 3 - Systems Exam Head: Present: Atraumatic, Normocephalic Pupils: Present: PERRL Extroacular Muscles: Present: EOMI Conjunctiva: Present: Normal Mouth: Present: Moist Mucous Membranes Neck: Present: Normal Range of Motion Respiratory/Chest: Present: Clear to Auscultation, Good Air Exchange. No: Respiratory Distress, Accessory Muscle Use Cardiovascular: Present: Regular Rate and Rhythm, Normal S1, S2. No: Murmurs Abdomen: Present: Tenderness (minimal epigastric tenderness.) Back: Present: Normal Inspection Upper Extremity: Present: Normal Inspection. No: Cyanosis, Edema Lower Extremity: Present: Normal Inspection. No: Edema Neurological: Present: GCS=15, CN II-XII Intact, Speech Normal Skin: Present: Warm, Dry, Normal Color. No: Rashes Psychiatric: Present: Alert, Oriented x 3, Normal Insight, Normal Concentration Medical Decision Making ED Course and Treatment: 09/06/17 04:42 Impression: A 32 year old male presents to the emergency department with a complaint of epigastric abdominal pain. Plan: -- EKG -- Chest X-ray -- Urinalysis -- Labs -- Protonix and IV Fluids -- Reassess and disposition Prior Visits: Notes and results from previous visits were reviewed. Patient was last seen in the emergency department on 04/21/2017. The patient was seen in the emergency department for epigastric abdominal pain radiating to the chest. The patient was discharged home. Progress Notes: 09/06/17 04:48 EKG: Ordered, reviewed, and independently interpreted the EKG. Rate : 60 BPM Rhythm : NSR Interpretation : Early repole. 12/24/17 06:00 abd soft cxr no free air. pt observed multiple times on phone in nad, listening to music. pain completely resolved in er. pt asking for dc. advise outpt fu and return precautions. - Lab Interpretations Lab Results: 09/06/17 04:45 09/06/17 04:45 Lab Results 09/06/17 04:45: Sodium 132, Potassium 3.8, Chloride 94 L, Carbon Dioxide 28, Anion Gap 14, BUN 16, Creatinine 1.2, Est GFR ( Amer) > 60, Est GFR (Non- Af Amer) > 60, Random Glucose 82, Calcium 9.5, Magnesium 1.7, Total Bilirubin 1.8 H, AST 47, ALT 97 H, Alkaline Phosphatase 70, Total Protein 7.5, Albumin 4.3 , Globulin 3.2, Albumin/Globulin Ratio 1.4, Lipase 111 09/06/17 04:45: Urine Color Yellow, Urine Appearance Clear, Urine pH 6.0, Ur Specific [place] <= 1.005, Urine Protein Negative, Urine Glucose (UA) Negative, Urine Ketones Negative, Urine Blood Negative, Urine Nitrate Negative, Urine Bilirubin Negative, Urine Urobilinogen 0.2, Ur Leukocyte Esterase Negative 09/06/17 04:45: PT 13.3 H, INR 1.20 H, APTT 28.8 09/06/17 04:45: WBC 3.7 L D, RBC 4.59, Hgb 13.4 L, Hct 38.4 L, MCV 83.7, MCH 29.2, MCHC 34.9, RDW 13.2, Plt Count 208, MPV 9.2, Gran % 49.9 L, Lymph % (Auto ) 39.2 H, [place] % (Auto) 9.2 H, Eos % (Auto) 1.4 L, Baso % (Auto) 0.3, Gran # 1.85, Lymph # 1.5, [place] # 0.3, Eos # 0.1, Baso # 0.01 I have reviewed the lab results: Yes - RAD Interpretation Radiology Orders: 09/06/17 04:35 CXR [CHEST PORTABLE] [RAD] Stat - EKG Interpretation Interpreted by ED Physician: Yes Type: 12 lead EKG - Medication Orders Current Medication Orders: Discontinued Medications Al Hydrox/Mg Hydrox/Simethicone (Maalox Plus 30 Ml) 30 ml PO STAT STA Stop: 09/06/17 05:33 Last Admin: 09/06/17 05:46 Dose: Not Given Non-Admin Reason: Patient Refused Sodium Chloride (Sodium Chloride 0.9%) 1,000 mls @ 1,000 mls/hr IV .Q1H STA Stop: 09/06/17 05:33 Last Admin: 09/06/17 05:32 Dose: 1,000 mls/hr eMAR Start Stop Document 09/06/17 05:32 SS (Rec: 09/06/17 05:33 SS [id number]) Intravenous Solution Start Date 09/06/17 Start Time 05:32 End Date 09/06/17 End time 06:32 Total Infusion Time 60 Pantoprazole Sodium (Protonix Inj) 40 mg IVP STAT STA Stop: 09/06/17 04:35 Last Admin: 09/06/17 05:32 Dose: Not Given Non-Admin Reason: Patient Refused IVP Administration Document 09/06/17 05:32 SS (Rec: 09/06/17 05:32 SS [id number]) Charges for Administration # of IVP Administrations 1 - Scribe Statement The provider has reviewed the documentation as recorded by the Scribe Brittany Cee Provider Scribe Attestation: All medical record entries made by the Scribe were at my direction and personally dictated by me. I have reviewed the chart and agree that the record accurately reflects my personal performance of the history, physical exam, medical decision making, and the department course for this patient. I have also personally directed, reviewed, and agree with the discharge instructions and disposition. Disposition/Present on Arrival - Present on Arrival Any Indicators Present on Arrival: No History of DVT/PE: No History of Uncontrolled Diabetes: No Urinary Catheter: No History of Decub. Ulcer: No History Surgical Site Infection Following: None - Disposition Have Diagnosis and Disposition been Completed?: Yes Diagnosis: Abdominal pain Disposition: HOME/ ROUTINE Disposition Time: 06:01 Patient Problems: Current Active Problems Problem Status Onset Abdominal pain Acute Condition: STABLE Discharge Instructions (ExitCare): Acute Abdominal Pain (ED) Additional Instructions: please follow up with your doctor/specialist. return to er with worsening symptoms or concerns. Referrals: Gt Garay MD [Staff Provider] - Follow up with primary Delfino Meza APN [Primary Care Provider] - Follow up with primary Forms: AGEL[employer] ? ([place])
[2017-09-06] MEDS ORDERED: Alum-Mag Hydrox-Simethicone Susp (30 mL) PO STA (05:32)
[2017-09-06 05:51] LABS: BASO # 0.01 K/mm3 (0.0-2.0); BASO % 0.3 % (0.0-3.0); EOS # 0.1 (0.0-0.7); EOS % 1.4 % (1.5-5.0); GRAN # 1.85 (1.4-6.5); GRAN % 49.9 % (50.0-68.0); HEMATOCRIT 38.4 % (42.0-52.0); LYMPH # 1.5 (1.2-3.4); LYMPH % 39.2 % (22.0-35.0); MEAN CELL VOLUME 83.7 fl (80.0-105.0); MEAN CORPUSCULAR HEMOGLOBIN 29.2 pg (25.0-35.0); MEAN CORPUSCULAR HGB CONC 34.9 g/dl (31.0-37.0); MEAN PLATELET VOLUME 9.2 fl (7.0-11.0); MONO # 0.3 (0.1-0.6); MONO % 9.2 % (1.0-6.0); RED CELL DISTRIBUTION WIDTH 13.2 % (11.5-14.5); URINE BILIRUBIN NEGATIVE (NEGATIVE); URINE BLOOD NEGATIVE (NEGATIVE); URINE GLUCOSE (UA) NEGATIVE (NEGATIVE); URINE KETONE NEGATIVE (NEGATIVE); URINE LEUKOCYTE ESTERASE NEGATIVE Leu/uL (NEGATIVE); URINE PROTEIN NEGATIVE mg/dL (<30 mg/dL); URINE UROBILINOGEN 0.2 E.U./dL (<1 E.U./dL); WHITE BLOOD COUNT 3.7 10^3/ul (4.5-11.0)
[2017-09-06 05:52] LABS: ALB/GLOB RATIO 1.4 (1.1-1.8); ALKALINE PHOSPHATASE 70 U/L (38-126); ALT/SGPT 97 U/L (7-56); AST/SGOT 47 U/L (17-59); BILIRUBIN,TOTAL 1.8 mg/dL (0.2-1.3); BLOOD UREA NITROGEN 16 mg/dL (7-21); CALCIUM 9.5 mg/dL (8.4-10.5); CARBON DIOXIDE 28 mmol/L (21-33); CHLORIDE 94 mmol/L (98-107); GFR AFRICAN-AMERICAN > 60; GLUCOSE,RANDOM 82 mg/dL (70-110); LIPASE 111 U/L (23-300); MAGNESIUM 1.7 mg/dL (1.7-2.2); POTASSIUM 3.8 mmol/L (3.6-5.0); SODIUM 132 mmol/L (132-148); TOTAL PROTEIN 7.5 g/dL (5.8-8.3); URINE APPEARANCE CLEAR (CLEAR); URINE COLOR YELLOW (YELLOW)
[2017-09-06 05:59] LABS: INR 1.2 (0.93-1.08); PARTIAL THROMBOPLASTIN TIME 28.8 Seconds (25.1-36.5)
--- NOTE | 2017-09-06 09:49 | RAD ---
HISTORY: Abdominal pain. Portable study 05:41. COMPARISON: 03/10/2017 FINDINGS: LUNGS: No active pulmonary disease. PLEURA: No significant pleural effusion identified, no pneumothorax apparent. CARDIOVASCULAR: Normal. OSSEOUS STRUCTURES: No significant abnormalities. VISUALIZED UPPER ABDOMEN: Normal. OTHER FINDINGS: None. IMPRESSION: No active disease. No significant interval change compared to the prior examination(s). Concordant results with the preliminary interpretation rendered by the emergency department physician procedure.
--- NOTE | 2017-09-06 10:15 | CARD ---
APPROVED REPORT EKG Measurement Heart [id number] <Conclusion> Normal sinus rhythm Improved repolarization c/w EVELIO 03/18/17
== END 2017-09-06 06:13 | disposition home or self-care (01) ==
LOC: ED 04:08
DX: R10.13 Epigastric pain (principal); I10 Essential (primary) hypertension
CPT/HCPCS: 71010; 80053; 81003; 83690; 83735; 85025; 85610; 85730; 93005; 96361; 96374; 99283; J7040

== ENCOUNTER 2017-11-04 20:44 | Emergency (ER) | payer BC, MEDICAID, OTHER ==
[2017-11-04 20:44] VITALS: BMI 23.7
[2017-11-04 21:00] VITALS: BP 150/93; PULSE 79; RESP 16; TEMP 98.4; O2SAT 100
--- NOTE | 2017-11-04 21:01 | ED PDOC ---
Arrival/HPI - General Chief Complaint: Weakness/Neurological Deficit Time Seen by Provider: 11/04/17 20:49 Historian: Patient - History of Present Illness Narrative History of Present Illness (Text): 11/04/17 21:00 Barry Aviles is a 32 year old male, whose past medical history includes gastritis, dehydration, and anxiety, who presents to the Emergency department complaining of generalized malaise for the past few days. Patient states he has feels dehydrated and notes he has not been sweating as much as usual. Patient states he has been dehydrated in the past, for which he was admitted to the hospital at the time, and worried he might be dehydrated again. Patient denies any fever, chills, chest pain, shortness of breath, nausea, vomiting, back pain , neck pain, headache, dizziness, or any other complaints. Symptom Onset: Gradual Symptom Course: Unchanged Activities at Onset: Light Context: Home Past Medical History - Provider Review Nursing Documentation Reviewed: Yes - Past History Past History: No Previous - Infectious Disease Hx of Infectious Diseases: None - Tetanus Immunization Tetanus Immunization: Unknown - Cardiac Hx Cardiac Disorders: Yes Hx Hypertension: Yes - Pulmonary Hx Respiratory Disorders: Yes Hx Asthma: Yes - Neurological Hx Neurological Disorder: No - HEENT Hx HEENT Disorder: No - Renal Hx Renal Disorder: No - Endocrine/Metabolic Hx Endocrine Disorders: No - Hematological/Oncological Hx Blood Disorders: Yes Other/Comment: LOW WBC - Integumentary Hx Dermatological Disorder: No - Musculoskeletal/Rheumatological Hx Musculoskeletal Disorders: No - Gastrointestinal Hx Gastrointestinal Disorders: Yes Hx Gastritis: Yes Hx Gastroesophageal Reflux: Yes Hx Gastrointestinal Ulcer: Yes - Genitourinary/Gynecological Hx Genitourinary Disorders: No - Psychiatric Hx Psychophysiologic Disorder: Yes Hx Anxiety: Yes Hx Substance Use: No - Past Surgical History Past Surgical History: No Previous - Anesthesia Hx Anesthesia: No - Suicidal Assessment Feels Threatened In Home Enviroment: No Family/Social History - Physician Review Nursing Documentation Reviewed: Yes Family/Social History: Unknown Family HX Smoking Status: Never Smoked Hx Alcohol Use: No Hx Substance Use: No Hx Substance Use Treatment: No Allergies/Home Meds Allergies/Adverse Reactions: Allergies No Known Allergies Allergy (Verified 11/04/17 21:00) Home Medications: Home Meds Medication Instructions Recorded Confirmed No Known Home Med 11/04/17 11/04/17 Physical Exam Vital Signs Reviewed: Yes Vital Signs Temp Pulse Resp BP Pulse Ox 11/04/17 20:56 98.4 F 79 16 150/93 H 100 Temperature: Afebrile Blood Pressure: Hypertensive Pulse: Regular Respiratory Rate: Normal Appearance: Positive for: Well-Appearing, Non-Toxic, Comfortable Pain Distress: None Mental Status: Positive for: Alert and Oriented X 3 - Systems Exam Head: Present: Atraumatic, Normocephalic Pupils: Present: PERRL Extroacular Muscles: Present: EOMI Conjunctiva: Present: Normal Mouth: Present: Moist Mucous Membranes Neck: Present: Normal Range of Motion Respiratory/Chest: Present: Clear to Auscultation, Good Air Exchange. No: Respiratory Distress, Accessory Muscle Use Cardiovascular: Present: Regular Rate and Rhythm, Normal S1, S2. No: Murmurs Abdomen: Present: Normal Bowel Sounds. No: Tenderness, Distention, Peritoneal Signs Back: Present: Normal Inspection Upper Extremity: Present: Normal Inspection. No: Cyanosis, Edema Lower Extremity: Present: Normal Inspection. No: Edema Neurological: Present: GCS=15, CN II-XII Intact, Speech Normal Skin: Present: Warm, Dry, Normal Color. No: Rashes Psychiatric: Present: Alert, Oriented x 3, Normal Insight, Normal Concentration Medical Decision Making ED Course and Treatment: 11/04/17 21:00 Impression: 32 year old male complaining of generalized malaise. Differential Diagnosis included but are not limited to: Plan: -- Labs -- Lactated Ringer's -- Reassess and disposition Prior Visits: Notes and results from previous visits were reviewed Progress Notes: - Lab Interpretations Lab Results: 11/04/17 21:25 11/04/17 21:25 Lab Results 11/04/17 22:58: Urine Color Straw, Urine Appearance Clear, Urine pH 6.5, Ur Specific [place] <= 1.005, Urine Protein Negative, Urine Glucose (UA) Negative, Urine Ketones Negative, Urine Blood Negative, Urine Nitrate Negative, Urine Bilirubin Negative, Urine Urobilinogen 0.2, Ur Leukocyte Esterase Negative 11/04/17 21:25: WBC 2.5 L* D, RBC 4.21, Hgb 12.5 L, Hct 36.8 L, MCV 87.4 D, MCH 29.7, MCHC 34.0, RDW 14.2, Plt Count 202, MPV 9.3 11/04/17 21:25: Sodium 130 L, Potassium 4.4, Chloride 93 L, Carbon Dioxide 30, Anion Gap 12, BUN 13, Creatinine 0.7 L, Est GFR ( Amer) > 60, Est GFR ( Non-Af Amer) > 60, Random Glucose 100, Calcium 9.5, Total Bilirubin 1.1, AST 49 , ALT 108 H, Alkaline Phosphatase 57, Total Protein 7.2, Albumin 4.2, Globulin 3.1, Albumin/Globulin Ratio 1.4 11/04/17 20:53: POC Glucose (mg/dL) 110 I have reviewed the lab results: Yes - Medication Orders Current Medication Orders: Discontinued Medications Sodium Chloride (Sodium Chloride 0.9%) 1,000 mls @ 999 mls/hr IV .Q1H1M STA Stop: 11/04/17 23:40 Last Admin: 11/04/17 23:07 Dose: 999 mls/hr eMAR Start Stop Document 11/04/17 23:07 ID (Rec: 11/04/17 23:07 ID [id number]) Intravenous Solution Start Date 11/04/17 Start Time 23:07 - Scribe Statement The provider has reviewed the documentation as recorded by the Scribe Do Vasques All medical record entries made by the Scribe were at my direction and personally dictated by me. I have reviewed the chart and agree that the record accurately reflects my personal performance of the history, physical exam, medical decision making, and the department course for this patient. I have also personally directed, reviewed, and agree with the discharge instructions and disposition. Disposition/Present on Arrival - Present on Arrival Any Indicators Present on Arrival: No History of DVT/PE: No History of Uncontrolled Diabetes: No Urinary Catheter: No History of Decub. Ulcer: No History Surgical Site Infection Following: None - Disposition Have Diagnosis and Disposition been Completed?: Yes Diagnosis: Viral syndrome Disposition: HOME/ ROUTINE Disposition Time: 01:15 Patient Plan: Discharge Condition: STABLE Discharge Instructions (ExitCare): Viral Syndrome (DC) Additional Instructions: Rest/no strenuous physical activity/follow up with your doctor this week Referrals: Guille Cook, [Primary Care Provider] - Follow up with primary Forms: [employer] ([place])
[2017-11-04 21:48] LABS: ALB/GLOB RATIO 1.4 (1.1-1.8); ALBUMIN 4.2 g/dL (3.0-4.8); ALT/SGPT 108 U/L (7-56); AST/SGOT 49 U/L (17-59); BLOOD UREA NITROGEN 13 mg/dL (7-21); CALCIUM 9.5 mg/dL (8.4-10.5); GFR AFRICAN-AMERICAN > 60; GFR NON-AFRICAN AMERICAN > 60; HEMOGLOBIN 12.5 g/dL (14.0-18.0); MEAN CORPUSCULAR HEMOGLOBIN 29.7 pg (25.0-35.0); MEAN PLATELET VOLUME 9.3 fl (7.0-11.0); RBC 4.21 10^6/uL (3.5-6.1); RED CELL DISTRIBUTION WIDTH 14.2 % (11.5-14.5)
[2017-11-04 22:07] LABS: MEAN CELL VOLUME 87.4 fl (80.0-105.0)
[2017-11-04 22:08] LABS: WHITE BLOOD COUNT 2.5 10^3/ul (4.5-11.0)
[2017-11-04] MEDS ORDERED: Lactated Ringer's 1,000 ML IV SCH (22:15)
[2017-11-04] MEDS ORDERED: Sodium Chloride 0.9% 1,000 ML IV STA (22:40)
[2017-11-05 00:40] LABS: PH,URINE 6.5 (4.7-8.0); URINE BILIRUBIN NEGATIVE (NEGATIVE); URINE BLOOD NEGATIVE (NEGATIVE); URINE GLUCOSE (UA) NEGATIVE (NEGATIVE); URINE LEUKOCYTE ESTERASE NEGATIVE Leu/uL (NEGATIVE); URINE NITRATE NEGATIVE (NEGATIVE); URINE PROTEIN NEGATIVE mg/dL (<30 mg/dL); URINE UROBILINOGEN 0.2 E.U./dL (<1 E.U./dL)
[2017-11-05 00:41] LABS: URINE APPEARANCE CLEAR (CLEAR); URINE COLOR STRAW (YELLOW)
== END 2017-11-05 01:34 | disposition home or self-care (01) ==
LOC: ED 20:44
DX: B34.9 Viral infection, unspecified (principal); I10 Essential (primary) hypertension
CPT/HCPCS: 80053; 81003; 82948; 85027; 99285; J7040

== ENCOUNTER 2018-06-17 16:33 | Emergency (ER) | payer OTHER ==
[2018-06-17 16:33] VITALS: BMI 23.7
[2018-06-17] MEDS ORDERED: Sodium Chloride 0.9% 1,000 ML IV STA (17:25)
--- NOTE | 2018-06-17 17:30 | ED PDOC ---
Arrival/HPI - General Time Seen by Provider: 06/17/18 17:13 Historian: Patient - History of Present Illness Narrative History of Present Illness (Text): 06/17/18 17:27 33 year old male, w/ PMH includes gastritis, dehydration, and anxiety, who presents to the Emergency department complaining of 1 day h/o urinary frequency associated with crampy upper abdominal discomfort, "not pain," with crampy sensation to his legs. Patient denies any dysuria, hematuria, fever, chills, chest pain, shortness of breath, nausea, vomiting, diarrhea, back pain, neck pain, headache, dizziness, or any other complaints. PMD Derrick Past Medical History - Past History Past History: No Previous - Infectious Disease Hx of Infectious Diseases: None - Tetanus Immunization Tetanus Immunization: Unknown - Cardiac Hx Cardiac Disorders: Yes Hx Hypertension: Yes - Pulmonary Hx Respiratory Disorders: Yes Hx Asthma: Yes - Neurological Hx Neurological Disorder: No - HEENT Hx HEENT Disorder: No - Renal Hx Renal Disorder: No - Endocrine/Metabolic Hx Endocrine Disorders: No - Hematological/Oncological Hx Blood Disorders: Yes Other/Comment: LOW WBC - Integumentary Hx Dermatological Disorder: No - Musculoskeletal/Rheumatological Hx Musculoskeletal Disorders: No - Gastrointestinal Hx Gastrointestinal Disorders: Yes Hx Gastritis: Yes Hx Gastroesophageal Reflux: Yes Hx Gastrointestinal Ulcer: Yes - Genitourinary/Gynecological Hx Genitourinary Disorders: No - Psychiatric Hx Psychophysiologic Disorder: Yes Hx Anxiety: Yes Hx Substance Use: No - Past Surgical History Past Surgical History: No Previous - Anesthesia Hx Anesthesia: No - Suicidal Assessment Feels Threatened In Home Enviroment: No Family/Social History Family/Social History: No Known Family HX Smoking Status: Never Smoked Hx Alcohol Use: No Hx Substance Use: No Hx Substance Use Treatment: No Allergies/Home Meds Allergies/Adverse Reactions: Allergies No Known Allergies Allergy (Verified 11/04/17 21:00) Review of Systems - Review of Systems Constitutional: absent: Fatigue, Fevers Respiratory: absent: SOB, Cough Cardiovascular: absent: Chest Pain, Palpitations Gastrointestinal: absent: Abdominal Pain, Diarrhea, Vomiting Genitourinary Male: Frequency. absent: Dysuria, Hematuria Musculoskeletal: absent: Arthralgias, Back Pain, Neck Pain Skin: absent: Rash, Pruritis, Skin Lesions Physical Exam Temperature: Afebrile Blood Pressure: Normal Pulse: Regular Respiratory Rate: Normal Appearance: Positive for: Well-Appearing, Non-Toxic, Comfortable Pain Distress: None Mental Status: Positive for: Alert and Oriented X 3 - Systems Exam Head: Present: Atraumatic, Normocephalic Pupils: Present: PERRL Extroacular Muscles: Present: EOMI Conjunctiva: Present: Normal Mouth: Present: Moist Mucous Membranes Neck: Present: Normal Range of Motion. No: Meningeal Signs, Lymphadenopathy Respiratory/Chest: Present: Clear to Auscultation, Good Air Exchange. No: Respiratory Distress, Accessory Muscle Use Cardiovascular: Present: Regular Rate and Rhythm, Normal S1, S2. No: Murmurs Abdomen: No: Tenderness, Distention, Peritoneal Signs, Rebound, Guarding, Other (negative Taylor's sign) Back: Present: Normal Inspection. No: CVA Tenderness, Midline Tenderness Upper Extremity: Present: Normal Inspection, Normal ROM, NORMAL PULSES. No: Cyanosis, Edema, Tenderness Lower Extremity: Present: Normal Inspection, NORMAL PULSES. No: Edema, Tenderness, Swelling Neurological: Present: GCS=15, CN II-XII Intact, Speech Normal, Motor Func Grossly Intact, Normal Sensory Function, Gait Normal Skin: Present: Warm, Dry, Normal Color. No: Rashes Psychiatric: Present: Alert, Oriented x 3, Normal Insight, Normal Concentration Medical Decision Making ED Course and Treatment: 06/17/18 17:31 Previous medical records reviewed, patient has had prior visits to this emergency room and at [facility] ER for abdominal pain related to GERD, gastritis. Plan: -- Labs -- IV fluids -- Urinalysis -- Urine cx -- Toradol IV -- Reassess and disposition Lab results reviewed and wnl. On reevaluation, patient reports improvement of symptoms, denies any abdominal pain, nausea at this time and has no other complaints. On exam, patient remains awake alert and oriented 3 in no acute distress. Based on history, exam and diagnostic results plan will be for outpatient follow up. Advised to follow up with primary care physician and GI MD in 1-2 days without fail. Advised to take medication as prescribed. Return to the emergency room at any time for any new or worsening symptoms. Patient states he fully agrees with and understands discharge instructions. States that he agrees with the plan and disposition. Verbalized and repeated discharge instructions and plan. I have given the patient opportunity to ask any additional questions. - Medication Orders Current Medication Orders: Sodium Chloride (Sodium Chloride 0.9%) 1,000 mls @ 1,000 mls/hr IV .Q1H STA Stop: 06/17/18 18:24 Ketorolac Tromethamine (Toradol) 15 mg IVP STAT STA Stop: 06/17/18 17:27 - PA / [employer] / Resident Statement / has reviewed & agrees with the documentation as recorded. Disposition/Present on Arrival - Present on Arrival Any Indicators Present on Arrival: No History of DVT/PE: No History of Uncontrolled Diabetes: No Urinary Catheter: No History Surgical Site Infection Following: None - Disposition Have Diagnosis and Disposition been Completed?: Yes Diagnosis: Abdominal discomfort Disposition: HOME/ ROUTINE Disposition Time: 20:00 Patient Plan: Discharge Patient Problems: Current Active Problems Problem Status Onset Abdominal discomfort Acute Condition: STABLE Discharge Instructions (ExitCare): Dyspepsia, Acute Abdomen (Belly Pain), Adult (DC) Additional Instructions: Thank you for letting us take care of you today. You were treated for abdominal discomfort, consider dyspepsia. The emergency medical care you received today was directed at your acute symptoms. If you were prescribed any medication, please fill it and take as directed. It may take several days for your symptoms to resolve. Return to the Emergency Department if your symptoms worsen, do not improve, or if you have any other problems. Please contact your PMD and GI doctor in 2 days for re-evaluation and follow up. Bring any paperwork you were given at discharge with you along with any medications you are taking to your follow up visit. Our treatment cannot replace ongoing medical care by a primary care provider (PCP) outside of the emergency department. Thank you for allowing the [facility] team to be part of your care today. Prescriptions: Esomeprazole Magnesium [Nexium] 40 mg PO DAILY #30 capsule. Forms: WORK NOTE
[2018-06-17 18:23] VITALS: RESP 16; O2SAT 100
[2018-06-17 18:47] LABS: BASO # 0.02 K/mm3 (0.0-2.0); BASO % 0.5 % (0.0-3.0); EOS # 0.1 (0.0-0.7); EOS % 1.3 % (1.5-5.0); GRAN # 2.67 (1.4-6.5); HEMOGLOBIN 14.9 g/dL (14.0-18.0); LYMPH # 0.7 (1.2-3.4); LYMPH % 18.3 % (22.0-35.0); MEAN CELL VOLUME 86.7 fl (80.0-105.0); MEAN CORPUSCULAR HEMOGLOBIN 29.7 pg (25.0-35.0); MEAN CORPUSCULAR HGB CONC 34.3 g/dl (31.0-37.0); MEAN PLATELET VOLUME 8.9 fl (7.0-11.0); MONO # 0.4 (0.1-0.6); MONO % 10.9 % (1.0-6.0); RBC 5.02 10^6/uL (3.5-6.1); RED CELL DISTRIBUTION WIDTH 12.9 % (11.5-14.5); WHITE BLOOD COUNT 3.9 10^3/ul (4.5-11.0)
[2018-06-17 18:50] LABS: URINE BILIRUBIN NEGATIVE (NEGATIVE); URINE BLOOD NEGATIVE (NEGATIVE); URINE GLUCOSE (UA) NEGATIVE (NEGATIVE); URINE LEUKOCYTE ESTERASE NEGATIVE Leu/uL (NEGATIVE); URINE PROTEIN NEGATIVE mg/dL (<30 mg/dL); URINE UROBILINOGEN 0.2 E.U./dL (<1 E.U./dL)
[2018-06-17 18:52] LABS: INR 1.05; PARTIAL THROMBOPLASTIN TIME 29.6 Seconds (25.1-36.5)
[2018-06-17 18:53] LABS: URINE COLOR YELLOW (YELLOW)
[2018-06-17 18:54] LABS: URINE APPEARANCE CLEAR (CLEAR)
[2018-06-17 18:55] LABS: ALB/GLOB RATIO 1.2 (1.1-1.8); ALBUMIN 4.4 g/dL (3.0-4.8); ALT/SGPT 23 U/L (7-56); AST/SGOT 27 U/L (17-59); BLOOD UREA NITROGEN 10 mg/dL (7-21); CALCIUM 9.5 mg/dL (8.4-10.5); GFR NON-AFRICAN AMERICAN > 60; LIPASE 36 U/L (23-300)
[2018-06-18 05:26] VITALS: BP 126/78; PULSE 60; TEMP 98
== END 2018-06-17 20:20 | disposition home or self-care (01) ==
LOC: ED 16:33
DX: R10.9 Unspecified abdominal pain (principal); I10 Essential (primary) hypertension
CPT/HCPCS: 80053; 81003; 83690; 83735; 85025; 85610; 85730; 87086; 96361; 96374; 99284; J1885; J7030

== ENCOUNTER 2018-11-13 17:43 | Emergency (ER) | payer SELFPAY ==
[2018-11-13 17:44] VITALS: BMI 23.7
[2018-11-13 18:00] VITALS: O2SAT 99
--- NOTE | 2018-11-13 19:56 | ED PDOC ---
Arrival/HPI - General Chief Complaint: Abdominal Pain Time Seen by Provider: 11/13/18 18:13 Historian: Patient - History of Present Illness Narrative History of Present Illness (Text): 11/13/18 18:40 33 year old male, whose past medical history includes gastritis, and anxiety, presents to the emergency department complaining of upper abdominal discomfort on and off for the past 2 months and constant x 2 weeks with decrease of appetite. Patient reports he mentioned his symptoms to his PMD 3 months ago. Patient had labs done which were normal. He also reports urinary frequency 2 weeks ago. Patient denies any abdominal surgeries or recent travel. Patient also mentions seeing a small "bump" to his penis, Patient otherwise denies any fever, chills, chest pain, shortness of breath, nausea, vomiting, diarrhea, back pain, neck pain, headache, dizziness, dysuria, d/c, penile blisters/rash, or any other complaints. PMD Meza Time/Duration: Other (2 months) Symptom Onset: Gradual Symptom Course: Unchanged Activities at Onset: Light Context: Home Past Medical History - Provider Review Nursing Documentation Reviewed: Yes - Past History Past History: No Previous - Infectious Disease Hx of Infectious Diseases: None - Tetanus Immunization Tetanus Immunization: Unknown - Cardiac Hx Cardiac Disorders: Yes Hx Hypertension: Yes - Pulmonary Hx Respiratory Disorders: Yes Hx Asthma: Yes - Neurological Hx Neurological Disorder: No - HEENT Hx HEENT Disorder: No - Renal Hx Renal Disorder: No - Endocrine/Metabolic Hx Endocrine Disorders: No - Hematological/Oncological Hx Blood Disorders: Yes Other/Comment: LOW WBC - Integumentary Hx Dermatological Disorder: No - Musculoskeletal/Rheumatological Hx Musculoskeletal Disorders: No - Gastrointestinal Hx Gastrointestinal Disorders: Yes Hx Gastritis: Yes Hx Gastroesophageal Reflux: Yes Hx Gastrointestinal Ulcer: Yes - Genitourinary/Gynecological Hx Genitourinary Disorders: No - Psychiatric Hx Psychophysiologic Disorder: Yes Hx Anxiety: Yes Hx Substance Use: No - Past Surgical History Past Surgical History: No Previous - Anesthesia Hx Anesthesia: No - Suicidal Assessment Feels Threatened In Home Enviroment: No Family/Social History - Physician Review Nursing Documentation Reviewed: Yes Family/Social History: No Known Family HX Smoking Status: Never Smoked Hx Alcohol Use: No Hx Substance Use: No Hx Substance Use Treatment: No Allergies/Home Meds Allergies/Adverse Reactions: Allergies No Known Allergies Allergy (Verified 11/04/17 21:00) Home Medications: Home Meds Medication Instructions Recorded Confirmed No Known Home Med 11/13/18 11/13/18 Review of Systems - Physician Review All systems were reviewed & negative as marked: Yes - Review of Systems Constitutional: absent: Fevers, Other (chills) Respiratory: absent: SOB Gastrointestinal: Abdominal Pain, Appetite Changes. absent: Diarrhea, Nausea, Vomiting Genitourinary Male: Frequency. absent: Dysuria, Hematuria Musculoskeletal: absent: Back Pain, Neck Pain Neurological: absent: Headache, Dizziness Physical Exam Vital Signs Reviewed: Yes Vital Signs Temp Pulse Resp BP Pulse Ox 11/13/18 17:56 98.8 F 116 H 20 156/86 H 99 Temperature: Afebrile Blood Pressure: Hypertensive Pulse: Tachycardic Respiratory Rate: Normal Appearance: Positive for: Well-Appearing, Non-Toxic, Comfortable Pain Distress: None Mental Status: Positive for: Alert and Oriented X 3 - Systems Exam Head: Present: Atraumatic, Normocephalic Pupils: Present: PERRL Extroacular Muscles: Present: EOMI Conjunctiva: Present: Normal Mouth: Present: Moist Mucous Membranes Neck: Present: Normal Range of Motion Respiratory/Chest: Present: Clear to Auscultation, Good Air Exchange. No: Respiratory Distress, Accessory Muscle Use Cardiovascular: Present: Regular Rate and Rhythm, Normal S1, S2. No: Murmurs Abdomen: No: Tenderness, Distention, Peritoneal Signs, Rebound, Guarding Genitourinary Male: Present: Normal External Genitalia, Circumcised Penis, Other (no scrotal swelling). No: Lesions, Penile Discharge, Penile Swelling Back: Present: Normal Inspection Upper Extremity: Present: Normal Inspection. No: Cyanosis, Edema Lower Extremity: Present: Normal Inspection. No: Edema Neurological: Present: GCS=15, Speech Normal Skin: Present: Warm, Dry, Normal Color. No: Rashes Lymphatic: No: Inguinal Adenopathy Psychiatric: Present: Alert, Oriented x 3, Normal Insight, Normal Concentration Medical Decision Making ED Course and Treatment: 11/13/18 18:40 Impression: 33 year old male presents complaining of intermittent right upper abdominal discomfort for the past 2 months and decrease appetite and urinary frequency for the past 2 weeks. Plan: -- Labs -- Chlamydia/GC RNA, TMA -- Urine Culture -- Fingerstick -- Urinalysis -- Reassess and disposition Prior Visits: Notes and results from previous visits were reviewed. Progress Notes: 11/13/18 20:12 Lab results reviewed and normal. On re-evaluation, patient is laying in bed comfortably and is in no acute distress. Lab results discussed with him. Discussed symptom of urinary frequency can be due to urethritis possibly from an STD. GC test sent to lab and patient advised that it will take a few days for that test to result, in the meantime, the patient was offered treatment of Rocephin and Zithromax for GC infection, which the patient refuses at this time. Recommended patient to followup outpatient with his PMD for further evaluation and follow up. - Lab Interpretations I have reviewed the lab results: Yes - PA / [employer] / Resident Statement MD/DO has reviewed & agrees with the documentation as recorded. - Scribe Statement The provider has reviewed the documentation as recorded by the Joseibamanuel Downey Provider Scribe Attestation: All medical record entries made by the Scribe were at my direction and personal ly dictated by me. I have reviewed the chart and agree that the record accurately reflects my personal performance of the history, physical exam, medical decision making, and the department course for this patient. I have also personally directed, reviewed, and agree with the discharge instructions and disposition. Disposition/Present on Arrival - Present on Arrival Any Indicators Present on Arrival: No History of DVT/PE: No History of Uncontrolled Diabetes: No Urinary Catheter: No History of Decub. Ulcer: No History Surgical Site Infection Following: None - Disposition Have Diagnosis and Disposition been Completed?: Yes Diagnosis: Abdominal pain, Urethritis Disposition: HOME/ ROUTINE Disposition Time: 20:15 Patient Plan: Discharge Condition: STABLE Discharge Instructions (ExitCare): Urethritis, Acute Abdomen (Belly Pain), Adult (DC) Additional Instructions: Thank you for letting us take care of you today. You were treated for abdominal pain, urethritis. The emergency medical care you received today was directed at your acute symptoms. Return to the Emergency Department if your symptoms worsen, do not improve, or if you have any other problems. Please contact your doctor in 2 days for re-evaluation and follow up. Bring any paperwork you were given at discharge with you along with any medications you are taking to your follow up visit. Our treatment cannot replace ongoing medical care by a primary care provider (PCP) outside of the emergency department. Thank you for allowing the [facility] team to be part of your care today. If you had a urine culture: It will take several days for the results, if any change in treatment is needed we will contact you. If you had an STI test: It will take 48 hours for the results. Please call after 1 week if you have not heard back. Forms: [employer] (Pashto)
[2018-11-13 20:00] LABS: BASO # 0.01 K/mm3 (0.0-2.0); BASO % 0.2 % (0.0-3.0); HEMOGLOBIN 15.4 g/dL (14.0-18.0); LYMPH # 1.1 (1.2-3.4); LYMPH % 26.8 % (22.0-35.0); MEAN CELL VOLUME 88.4 fl (80.0-105.0); MEAN CORPUSCULAR HEMOGLOBIN 29.8 pg (25.0-35.0); MEAN CORPUSCULAR HGB CONC 33.8 g/dl (31.0-37.0); MEAN PLATELET VOLUME 8.8 fl (7.0-11.0); MONO # 0.3 (0.1-0.6); MONO % 8.4 % (1.0-6.0); RBC 5.16 10^6/uL (3.5-6.1); RED CELL DISTRIBUTION WIDTH 13.5 % (11.5-14.5)
[2018-11-13 20:02] LABS: PH,URINE 7.5 (4.7-8.0); URINE BILIRUBIN NEGATIVE (NEGATIVE); URINE BLOOD NEGATIVE (NEGATIVE); URINE GLUCOSE (UA) NEGATIVE (NEGATIVE); URINE LEUKOCYTE ESTERASE NEGATIVE Leu/uL (NEGATIVE); URINE PROTEIN NEGATIVE mg/dL (<30 mg/dL); URINE UROBILINOGEN 0.2 E.U./dL (<1 E.U./dL)
[2018-11-13 20:03] LABS: URINE APPEARANCE CLEAR (CLEAR); URINE COLOR LIGHT YELLOW (YELLOW)
[2018-11-13 20:10] LABS: ALB/GLOB RATIO 1.2 (1.1-1.8); ALBUMIN 4.6 g/dL (3.0-4.8); ALT/SGPT 38 U/L (7-56); AST/SGOT 33 U/L (17-59); BLOOD UREA NITROGEN 12 mg/dL (7-21); CALCIUM 9.3 mg/dL (8.4-10.5); GFR NON-AFRICAN AMERICAN > 60; LIPASE 45 U/L (23-300)
[2018-11-13] MEDS ORDERED: cefTRIAXone (Rocephin) 250 mg Inj IM STA (20:14)
[2018-11-13 21:17] VITALS: BP 145/84; PULSE 91; RESP 18; TEMP 98
== END 2018-11-13 20:52 | disposition home or self-care (01) ==
LOC: ED 17:43
DX: N34.2 Other urethritis (principal); R10.9 Unspecified abdominal pain; I10 Essential (primary) hypertension; K21.9 Gastro-esophageal reflux disease without esophagitis

== ENCOUNTER 2018-12-22 11:44 | Emergency (ER) | payer MEDICAID ==
[2018-12-22 12:03] VITALS: BMI 19.5
[2018-12-22 12:11] VITALS: RESP 18; TEMP 97.9; O2SAT 100
[2018-12-22] MEDS ORDERED: Sodium Chloride 0.9% 500 ML IV STA (12:31)
--- NOTE | 2018-12-22 12:33 | ED PDOC ---
Arrival/HPI - General Historian: Patient - History of Present Illness Narrative History of Present Illness (Text): Patient is a 33 year old male with past medical history of anxiety, chronic abdominal pain, GERD presenting with chief complaint of bilateral lower leg paresthesias and facial paresthesias beginning yesterday. He presented with similar symptoms in 2016. Denies any weakness. He also admits to polyuria. His partner was recently diagnosed with bacterial vaginosis and is requesting STD eval. Denies fevers, chills, chest pain, back pain, shortness of breath, abdominal pain, diarrhea. Denies any issues ambulating. 12/22/18 12:41 12/22/18 14:42 Time/Duration: 24 hours Symptom Onset: Sudden Symptom Course: Unchanged Quality: Other (numbness) <Aristides Miller - Last Filed: 12/22/18 14:36> <Sangita Cortez - Last Filed: 12/22/18 14:46> - General Chief Complaint: Lower Extremity Problem/Injury Time Seen by Provider: 12/22/18 12:02 Past Medical History - Provider Review Nursing Documentation Reviewed: Yes - Past History Past History: No Previous - Infectious Disease Hx of Infectious Diseases: None - Tetanus Immunization Tetanus Immunization: Unknown - Cardiac Hx Cardiac Disorders: Yes Hx Hypertension: Yes - Pulmonary Hx Respiratory Disorders: Yes Hx Asthma: Yes - Neurological Hx Neurological Disorder: No - HEENT Hx HEENT Disorder: No - Renal Hx Renal Disorder: No - Endocrine/Metabolic Hx Endocrine Disorders: No - Hematological/Oncological Hx Blood Disorders: Yes Other/Comment: LOW WBC - Integumentary Hx Dermatological Disorder: No - Musculoskeletal/Rheumatological Hx Musculoskeletal Disorders: No - Gastrointestinal Hx Gastrointestinal Disorders: Yes Hx Gastritis: Yes Hx Gastroesophageal Reflux: Yes Hx Gastrointestinal Ulcer: Yes - Genitourinary/Gynecological Hx Genitourinary Disorders: No - Psychiatric Hx Psychophysiologic Disorder: Yes Hx Anxiety: Yes Hx Substance Use: No - Past Surgical History Past Surgical History: No Previous - Anesthesia Hx Anesthesia: No - Suicidal Assessment Feels Threatened In Home Enviroment: No <Aristides Miller - Last Filed: 12/22/18 14:36> Family/Social History - Physician Review Nursing Documentation Reviewed: Yes Family/Social History: No Known Family HX Smoking Status: Never Smoked Hx Alcohol Use: No Hx Substance Use: No Hx Substance Use Treatment: No <Jaida Millerdede Darryl - Last Filed: 12/22/18 14:36> Allergies/Home Meds <Aristides Miller - Last Filed: 12/22/18 14:36> <ConnieanthonySangita Falcon - Last Filed: 12/22/18 14:46> Allergies/Adverse Reactions: Allergies No Known Allergies Allergy (Verified 11/04/17 21:00) Home Medications: Home Meds Medication Instructions Recorded Confirmed No Known Home Med 11/13/18 11/13/18 Review of Systems - Review of Systems Respiratory: Normal Cardiovascular: Normal Genitourinary Male: Other (polyuria) Neurological: Other (leg numbness, facial numbness) <Jaida Millerdede Andrews - Last Filed: 12/22/18 14:36> Physical Exam Vital Signs Reviewed: Yes Vital Signs Temp Pulse Resp BP Pulse Ox 12/22/18 12:10 97.9 F 86 18 145/94 H 100 Temperature: Afebrile Blood Pressure: Hypertensive Pulse: Regular Respiratory Rate: Normal Appearance: Positive for: Non-Toxic, Comfortable Pain Distress: None Mental Status: Positive for: Alert and Oriented X 3 - Systems Exam Head: Present: Atraumatic, Normocephalic Pupils: Present: PERRL Extroacular Muscles: Present: EOMI Conjunctiva: Present: Normal Mouth: Present: Moist Mucous Membranes Respiratory/Chest: Present: Clear to Auscultation, Good Air Exchange. No: Respiratory Distress, Accessory Muscle Use Cardiovascular: Present: Regular Rate and Rhythm, Normal S1, S2. No: Tachycardic Abdomen: Present: Normal Bowel Sounds. No: Tenderness, Distention Genitourinary Male: Present: Normal External Genitalia. No: Penile Discharge, Erythema Upper Extremity: Present: Normal Inspection Lower Extremity: Present: Normal Inspection, NORMAL PULSES Neurological: Present: GCS=15, CN II-XII Intact, Speech Normal, Motor Func Grossly Intact, Normal Cerebellar Funct, Other (numbness in V1 in nasal distribution but not forehead, numbness in V2 and V3 on right side excluding forehead distribution) Skin: Present: Warm, Dry, Normal Color Psychiatric: Present: Alert, Oriented x 3, Normal Insight, Normal Concentration <Jaida Millerdede Andrews - Last Filed: 12/22/18 14:36> Vital Signs Temp Pulse Resp BP Pulse Ox 12/22/18 12:10 97.9 F 86 18 145/94 H 100 <Sangita Cortez - Last Filed: 12/22/18 14:46> Medical Decision Making ED Course and Treatment: Impression: paresthesias Differential Diagnosis included but are not limited to: Plan: - CBC, CMP, CPK - EKG - Chlamydia, GC - UA - NS 500 cc bolus - CT head w/o contrast - Reassess and disposition Prior Visits: Notes and results from previous visits were reviewed. Patient was last seen in the emergency department on 11/13/2018. Progress Notes: Discussed with patient per CDC guidelines no need to treat the partner for bacterial vaginosis Patient to follow up with neurology outpatient - EKG Interpretation EKG Interpretation (Text): 12/22/18 12:36 Sinus tachycardia Interpreted by ED Physician: Yes Type: 12 lead EKG <Aristides Miller - Last Filed: 12/22/18 14:36> ED Course and Treatment: 12/22/18 13:37 Patient presenting with paresthesias which fit no neurologic sensation pattern. Similar episodes and significantly anxious in ED. Normal strength and ambulating around the ED without issue. Denies headache. CT head negative. No chest pain or shortness of breath. Requesting STD evaluation as partner recently diagnosed with BV. No dysuria or penile discharge. CDC does not recommend partner treatment for BV. Will send g/c. Made aware of incidental findings on labs and given neuro follow-up. - RAD Interpretation Radiology Orders: 12/22/18 12:46 HEAD W/O CONTRAST [CT] Stat - Medication Orders Current Medication Orders: Discontinued Medications Sodium Chloride (Sodium Chloride 0.9%) 500 mls @ 999 mls/hr IV .Q31M STA Stop: 12/22/18 13:01 <Sangita Cortez - Last Filed: 12/22/18 14:46> Disposition/Present on Arrival - Present on Arrival Any Indicators Present on Arrival: No History of DVT/PE: No History of Uncontrolled Diabetes: No Urinary Catheter: No History of Decub. Ulcer: No History Surgical Site Infection Following: None - Disposition Have Diagnosis and Disposition been Completed?: Yes Disposition Time: 12:37 Patient Plan: Discharge <Aristides Miller - Last Filed: 12/22/18 14:36> - Present on Arrival Any Indicators Present on Arrival: No - Disposition Have Diagnosis and Disposition been Completed?: Yes Patient Plan: Discharge <Sangita Cortez - Last Filed: 12/22/18 14:46> - Disposition Diagnosis: Paresthesia, Anxiety, Polyuria, Glucosuria Disposition: HOME/ ROUTINE Patient Problems: Current Active Problems Problem Status Onset Anxiety Acute Paresthesia Acute Polyuria Acute Glucosuria Acute Condition: STABLE Additional Instructions: Please follow up with your primary medical doctor and your neurologist within 3- 5 days. Also follow up regarding glucose that was found on your urinalysis. Your STD results will be back in 2 days Return to the ED if symptoms worsen. Referrals: Ambar Alvarado MD [Staff Provider] - Follow up with primary Forms: [employer] (Sammarinese)
--- NOTE | 2018-12-22 13:34 | CT ---
Date of service: 12/22/2018 PROCEDURE: CT HEAD WITHOUT CONTRAST. HISTORY: R sided paresthesias COMPARISON: 03/10/2017 TECHNIQUE: Axial computed tomography images were obtained through the head/brain without intravenous contrast. Radiation dose: Total exam DLP = 957.08 mGy-cm. This CT exam was performed using one or more of the following dose reduction techniques: Automated exposure control, adjustment of the mA and/or kV according to patient size, and/or use of iterative reconstruction technique. FINDINGS: HEMORRHAGE: No intracranial hemorrhage. BRAIN: No mass effect or edema. No atrophy or chronic microvascular ischemic changes. VENTRICLES: Unremarkable. No hydrocephalus. CALVARIUM: Unremarkable. PARANASAL SINUSES: Unremarkable as visualized. No significant inflammatory changes. MASTOID AIR CELLS: Unremarkable as visualized. No inflammatory changes. OTHER FINDINGS: None. IMPRESSION: Normal CT of the Head.
[2018-12-22 13:49] LABS: BASO # 0.01 K/mm3 (0.0-2.0); BASO % 0.2 % (0.0-3.0); EOS % 0.2 % (1.5-5.0); HEMOGLOBIN 15.5 g/dL (14.0-18.0); LYMPH # 0.9 (1.2-3.4); LYMPH % 17.2 % (22.0-35.0); MEAN CELL VOLUME 88.3 fl (80.0-105.0); MEAN CORPUSCULAR HEMOGLOBIN 29.8 pg (25.0-35.0); MEAN CORPUSCULAR HGB CONC 33.8 g/dl (31.0-37.0); MEAN PLATELET VOLUME 8.9 fl (7.0-11.0); MONO # 0.5 (0.1-0.6); MONO % 9.4 % (1.0-6.0); RBC 5.2 10^6/uL (3.5-6.1); RED CELL DISTRIBUTION WIDTH 13.4 % (11.5-14.5); URINE BILIRUBIN NEGATIVE (NEGATIVE); URINE BLOOD NEGATIVE (NEGATIVE); URINE GLUCOSE (UA) 100 mg/dL (NEGATIVE); URINE LEUKOCYTE ESTERASE NEGATIVE Leu/uL (NEGATIVE); URINE PROTEIN NEGATIVE mg/dL (<30 mg/dL); URINE UROBILINOGEN 0.2 E.U./dL (<1 E.U./dL)
[2018-12-22 14:03] LABS: ALB/GLOB RATIO 1.4 (1.1-1.8); ALBUMIN 4.7 g/dL (3.0-4.8); ALT/SGPT 42 U/L (7-56); AST/SGOT 28 U/L (17-59); BLOOD UREA NITROGEN 10 mg/dL (7-21); CALCIUM 9.9 mg/dL (8.4-10.5); GFR NON-AFRICAN AMERICAN > 60
[2018-12-22 14:06] LABS: URINE APPEARANCE CLEAR (CLEAR); URINE COLOR YELLOW (YELLOW)
[2018-12-22 15:08] VITALS: BP 140/85; PULSE 84
--- NOTE | 2018-12-22 16:45 | CARD ---
APPROVED REPORT Date of service: 12/22/2018 EKG Measurement Heart [id number] <Conclusion> Sinus tachycardia Otherwise normal ECG
== END 2018-12-22 15:33 | disposition home or self-care (01) ==
LOC: ED 11:44
DX: R20.2 Paresthesia of skin (principal); F41.9 Anxiety disorder, unspecified; R81 Glycosuria; R35.8 Other polyuria; I10 Essential (primary) hypertension
CPT/HCPCS: 70450; 80053; 81003; 82550; 83735; 84100; 85025; 87491; 87591; 93005; 99284; J7040

== ENCOUNTER 2019-02-12 15:21 | Emergency (ER) | payer BC, MEDICAID, OTHER ==
[2019-02-12 15:22] VITALS: BMI 19.5
[2019-02-12] MEDS ORDERED: Sodium Chloride 0.9% 1,000 ML IV STA (15:41)
--- NOTE | 2019-02-12 15:47 | ED PDOC ---
Arrival/HPI - General Chief Complaint: GI Problem Time Seen by Provider: 02/12/19 15:22 Historian: Patient - History of Present Illness Narrative History of Present Illness (Text): 33 yr old male /w hx of gastrits, anxiety, eosinophilic esophagitis, recent sinus infx rx w/ Augmentin p/w diarrhea. Pt notes diarrhea and epigastric / RUQ pain x2d, unlike his previous gastrits. He notes multiple episodes of non- bloody, non dark stool. He notes that he saw Dr. Aguillon 4 days prior who told him to discontinue the Augmentin given risk of diarrhea. He notes that his stool has not been rice water like, but has been loose x4 today. He denies any fall or trauma. No chest pain or shortness of breath. He notes trying to take his GERD medications with some mild improvement of the pain. He denies any LÓPEZ, or current sinus pain / issues. No other complaints. 02/12/19 15:46 PMD: Dr. Aguillon Past Medical History - Provider Review Nursing Documentation Reviewed: Yes - Past History Past History: No Previous - Infectious Disease Hx of Infectious Diseases: None - Tetanus Immunization Tetanus Immunization: Unknown - Cardiac Hx Hypertension: No (Pt denies) - Pulmonary Hx Asthma: Yes - Neurological Hx Neurological Disorder: No - HEENT Hx HEENT Disorder: No - Renal Hx Renal Disorder: No - Endocrine/Metabolic Hx Endocrine Disorders: No - Hematological/Oncological Hx Blood Disorders: Yes Other/Comment: LOW WBC - Integumentary Hx Dermatological Disorder: No - Musculoskeletal/Rheumatological Hx Musculoskeletal Disorders: No - Gastrointestinal Hx Gastritis: Yes Hx Gastrointestinal Ulcer: Yes - Genitourinary/Gynecological Hx Genitourinary Disorders: No - Psychiatric Hx Anxiety: Yes Hx Depression: No Hx Substance Use: No - Past Surgical History Past Surgical History: No Previous - Anesthesia Hx Anesthesia: No - Suicidal Assessment Feels Threatened In Home Enviroment: No Family/Social History - Physician Review Nursing Documentation Reviewed: Yes Family/Social History: Unknown Family HX Smoking Status: Never Smoked Hx Alcohol Use: No Hx Substance Use: No Hx Substance Use Treatment: No Allergies/Home Meds Allergies/Adverse Reactions: Allergies No Known Allergies Allergy (Verified 02/12/19 15:25) Review of Systems - Review of Systems Constitutional: absent: Normal, Fatigue, Weight Change, Fevers Eyes: absent: Vision Changes, Photophobia, Eye Pain ENT: absent: Hearing Changes Respiratory: absent: SOB, Cough Cardiovascular: absent: Chest Pain, Palpitations Gastrointestinal: Abdominal Pain, Stool Changes, Diarrhea. absent: Constipation, Nausea, Vomiting, Appetite Changes, Hematochezia, Hematemesis, Anorexia, Food Intolerance Genitourinary Male: absent: Dysuria, Frequency, Hematuria, Urinary Output Changes Musculoskeletal: absent: Arthralgias, Back Pain, Neck Pain, Joint Swelling, Myalgias Skin: absent: Rash, Pruritis, Skin Lesions, Laceration, Abscess Neurological: absent: Headache Endocrine: absent: Diaphoresis, Polyuria Hemo/Lymphatic: absent: Adenopathy Psychiatric: absent: Anxiety, Depression, Suicidal Ideation Physical Exam Vital Signs Reviewed: Yes Temperature: Afebrile Blood Pressure: Hypertensive Pulse: Regular Respiratory Rate: Normal Appearance: Positive for: Well-Appearing, Non-Toxic, Comfortable Pain Distress: None Mental Status: Positive for: Alert and Oriented X 3 - Systems Exam Head: Present: Atraumatic, Normocephalic Pupils: Present: PERRL Extroacular Muscles: Present: EOMI Conjunctiva: Present: Normal Ears: Present: Normal Mouth: Present: Moist Mucous Membranes Pharnyx: Present: Normal. No: ERYTHEMA, EXUDATE, TONSILS ENLARGED, Uvular Deviation, Muffled/Hoarse Voice Nose (External): Present: Atraumatic. No: Abrasion, Contusion, Laceration Neck: Present: Normal Range of Motion. No: Meningeal Signs, MIDLINE TENDERNESS, JVD, Lymphadenopathy Respiratory/Chest: Present: Clear to Auscultation, Good Air Exchange. No: Respiratory Distress, Accessory Muscle Use, Wheezes, Decreased Breath Sounds, Rales, Retracting, Rhonchi Cardiovascular: Present: Regular Rate and Rhythm, Normal S1, S2. No: Murmurs Abdomen: Present: Tenderness (epigastric), Normal Bowel Sounds. No: Distention, Peritoneal Signs, Rebound, Guarding, McBurney's Point Tender, Hernias Back: Present: Normal Inspection. No: CVA Tenderness, Midline Tenderness Upper Extremity: Present: Normal Inspection, Normal ROM, NORMAL PULSES. No: Cya nosis, Edema Lower Extremity: Present: Normal Inspection, NORMAL PULSES. No: Edema, CALF TENDERNESS Neurological: Present: GCS=15, CN II-XII Intact, Speech Normal, Motor Func Grossly Intact Skin: Present: Warm, Dry, Normal Color. No: Rashes Psychiatric: Present: Alert, Oriented x 3, Normal Insight, Normal Concentration Medical Decision Making ED Course and Treatment: 33 yr old male /w hx of gastrits, anxiety, eosinophilic esophagitis, recent sinus infx rx w/ Augmentin p/w diarrhea. Diarrhea x4, non bloody, non dark. No fall or trauma. No SI or HI or depression / hallucination or current anxiety. Likely mild cdiff given non-rice water, and only mildly loose diarrhea. No signs of dehydration on exam. Epigastric TTP, without any murphys signs. No RLQ or Suprapubics or LLQ or LUQ or periumbilcal pain. No genital complaints: no rash or pain. pending imaging and labs 02/12/2019 17:30 Gallbladder Ultrasound IMPRESSION: Unremarkable right upper quadrant ultrasound. Dictator: Toni Ordoñez MD 02/12/19 17:45 labs unremarkable repeat abd exam unremarkable, pt tolerating clears clear for d/c home with return indications and follow up. will give flagyl for likely mild C. diff pt agreeable to plan. - Lab Interpretations I have reviewed the lab results: Yes - RAD Interpretation Radiology Orders: 02/12/19 15:41 GALLBLADDER & HEPATIC [US] Stat - Medication Orders Current Medication Orders: Sodium Chloride (Sodium Chloride 0.9%) 1,000 mls @ 999 mls/hr IV .Q1H1M STA Stop: 02/12/19 16:41 Disposition/Present on Arrival - Present on Arrival Any Indicators Present on Arrival: No History of DVT/PE: No History of Uncontrolled Diabetes: No Urinary Catheter: No History of Decub. Ulcer: No History Surgical Site Infection Following: None - Disposition Have Diagnosis and Disposition been Completed?: Yes Diagnosis: Diarrhea, Abdominal pain Disposition: HOME/ ROUTINE Disposition Time: 17:51 Condition: STABLE Discharge Instructions (ExitCare): Acute Abdomen (Belly Pain), Diarrhea in Adolescents and Adults Additional Instructions: PRADEEP MONTIEL, thank you for letting us take care of you today. Your provider was Sandeep Waldrop and you were treated for SICK/DIARRHEA. The emergency medical care you received today was directed at your acute symptoms. If you were prescribed any medication, please fill it and take as directed. It may take several days for your symptoms to resolve. Return to the Emergency Department if your symptoms worsen, do not improve, or if you have any other problems. Please contact your doctor or call one of the physicians/clinics you have been referred to that are listed on the Patient Visit Information form that is included in your discharge packet. Bring any paperwork you were given at discharge with you along with any medications you are taking to your follow up visit. Our treatment cannot replace ongoing medical care by a primary care provider outside of the emergency department. Thank you for allowing the [facility] team to be part of your care today. If you had an X-Ray or CT scan: A Radiologist will review the ED reading if any change in treatment is needed we will contact you. If you had a blood, urine, or wound culture: It will take several days for the results, if any change in treatment is needed we will contact you. If you had an STI test: It will take 48 hours for the results. Please call after 1 week if you have not heard back. Prescriptions: Metronidazole [Flagyl] 500 mg PO Q6H 10 Days #40 tablet Referrals: Richa Aguillon MD [Primary Care Provider] - Follow up with primary Steven Clay DO [Staff Provider] - Follow up with primary [facility] [Outside] - Follow up with primary [facility] [place] [Outside] - Follow up with primary [facility] [place] [Outside] - Follow up with primary Forms: [facility] ([place])
[2019-02-12 16:19] VITALS: RESP 18; TEMP 98.3
[2019-02-12 16:24] LABS: BASO # 0.01 K/mm3 (0.0-2.0); BASO % 0.2 % (0.0-3.0); EOS # 0.2 (0.0-0.7); EOS % 3.8 % (1.5-5.0); HEMOGLOBIN 15.4 g/dL (14.0-18.0); LYMPH # 0.8 (1.2-3.4); LYMPH % 13.5 % (22.0-35.0); MEAN CELL VOLUME 87.9 fl (80.0-105.0); MEAN CORPUSCULAR HEMOGLOBIN 29.5 pg (25.0-35.0); MEAN CORPUSCULAR HGB CONC 33.6 g/dl (31.0-37.0); MEAN PLATELET VOLUME 8.6 fl (7.0-11.0); MONO # 0.7 (0.1-0.6); MONO % 12.1 % (1.0-6.0); RBC 5.22 10^6/uL (3.5-6.1); WHITE BLOOD COUNT 5.7 10^3/uL (4.5-11.0)
[2019-02-12 16:35] LABS: ALB/GLOB RATIO 1.2 (1.1-1.8); ALBUMIN 4.3 g/dL (3.0-4.8); ALT/SGPT 29 U/L (7-56); AST/SGOT 29 U/L (17-59); BLOOD UREA NITROGEN 12 mg/dL (7-21); CALCIUM 9.1 mg/dL (8.4-10.5); GFR NON-AFRICAN AMERICAN > 60; LIPASE 35 U/L (23-300)
--- NOTE | 2019-02-12 17:31 | US ---
Date of service: 02/12/2019 HISTORY: ruq pain / epig pain COMPARISON: None. TECHNIQUE: Sonographic evaluation of the right upper quadrant of the abdomen. FINDINGS: LIVER: Measures 14.9 cm in length. Normal echogenicity of the liver parenchyma. No mass. No intrahepatic bile duct dilatation. GALLBLADDER: Unremarkable. No gallstones. COMMON BILE DUCT: Measures 6 mm. No stones. No dilatation. PANCREAS: Unremarkable as visualized. No mass. No ductal dilatation. RIGHT KIDNEY: Measures 12.2 x 6.1 x 6.9 cm in length. Normal echogenicity. No calculus, mass, or hydronephrosis. AORTA: No aneurysmal dilatation. IVC: Unremarkable. OTHER FINDINGS: None . IMPRESSION: Unremarkable right upper quadrant ultrasound.
[2019-02-12 18:36] VITALS: BP 147/87; PULSE 83; O2SAT 98
== END 2019-02-12 18:38 | disposition home or self-care (01) ==
LOC: ED 15:21
DX: R10.11 Right upper quadrant pain (principal); R19.7 Diarrhea, unspecified
CPT/HCPCS: 76705; 80053; 83690; 85025; 96361; 96374; 99283; J7030